=== PATIENT | male | born 1980 | race Caucasian/White ===

== ENCOUNTER 2017-11-15 17:30 | Emergency (ER) | payer BC, OTHER ==
[~2017-11-15] VITALS: Ht 180.3 cm; Wt 133.0 kg
[2017-11-15 17:33] VITALS: TEMP 36.8; Ht 180.3 cm; Wt 133.0 kg
--- NOTE | 2017-11-15 18:22 | EMERGENCY ROOM VISIT NOTE ---
History First contact with patient: 17:34 Chief Complaint: BACK INJURY Stated Complaint: NUMBNESS, ABDOMINAL AND DIARRHEA History of Present Illness The patient is a 37 year old male who presents to the Emergency Room with complaints of severe mid and lower back pain has been going on for approximately 2 weeks. The patient denies any acute injury. He woke up from bed with the pain. He saw a chiropractor twice this week where manipulation was performed. He is now complaining of numbness in the left side of his abdomen and down his left leg. He denies any weakness. He has tried muscle relaxants with minimal relief. He denies any history of back pain. The patient also complains of difficulty holding his stool. He has had black, liquid stool and also has noted some bright red blood in it. He is having difficulty making it to the restroom. He denies any significant abdominal pain. No nausea or vomiting. No sick contacts. No recent antibiotics. They do not have well water. Review of Systems 10 system review performed and negative unless noted in HPI or below Past Medical/Surgical History Hypertension Social History Smoking Status: Never Smoker Alcohol Use: occasionally Marital Status: Housing Status: lives with family Occupation Status: employed Current/Historical Medications Scheduled Cyclobenzaprine Hcl (Flexeril), 10 MG PO TID Lisinopril (Lisinopril), 10 MG PO DAILY Pantoprazole (Protonix), 1 TAB PO BID Sertraline (Zoloft), 100 MG PO DAILY Scheduled PRN Ginseng (Ginseng), 1 TAB PO DAILY PRN for TOBACCO CESSATION Oxycodone/Acetaminophen 5MG/325MG (Percocet 5MG/325MG), 1-2 TABS PO Q4 PRN for Pain Physical Exam Vital Signs Date Time Temp Pulse Resp B/P (MAP) Pulse Ox O2 Delivery O2 Flow Rate FiO2 11/15/17 23:45 83 15 157/93 95 11/15/17 22:29 76 16 155/89 97 Room Air 11/15/17 19:33 75 16 185/118 95 Room Air 11/15/17 17:33 36.8 88 20 179/114 98 Room Air Physical Exam GENERAL: 37-year-old male, mildly uncomfortable in appearance, SKIN: The skin was without rashes, erythema, edema, or bruising. HEAD: Normocephalic atraumatic. MOUTH: Mucous membranes moist. NECK: Supple without nuchal rigidity. Cervical spine is nontender. HEART: Regular rate and rhythm without murmurs gallops or rubs. LUNGS: Clear to auscultation bilaterally without wheezes, rales or rhonchi. No accessory muscle use. ABDOMEN: Positive bowel sounds x 4.Soft, mild tenderness to palpation in the right lower quadrant, without organomegaly. No guarding or rebound tenderness. MUSCULOSKELETAL: No muscle atrophy, erythema, or edema noted. No tenderness to palpation over the spinous processes throughout the spine. There is a muscle spasm in the right paraspinous muscle. Unable to perform straight leg test secondary to body habitus and pain. Decreased sensation noted on the left side of the abdomen near the umbilicus. Decreased sensation also on the left lateral thigh. Normal gait. Strength 5/5 throughout. NEURO: Patient was alert and oriented to person place and time. Sensation deficits as noted above Medical Decision & Procedures ER Provider Diagnostic Interpretation: CT abdomen and pelvis with IV contrast IMPRESSION: 1. There is underdistention versus minimal wall thickening of the left colon. Underdistention is favored. Correlate clinically for evidence of a mild colitis. 2. Hepatomegaly and hepatic steatosis. 3. The left kidney is located in the pelvis. 4. Although decompressed the bladder wall appears mildly thickened. Correlation with urinalysis will be required. 5. Additional findings as above. Electronically signed by: Maco Roa M.D. 11/15/2017 8:02 PM MRI thoracic and lumbar spine Patient Name: KASSANDRA CHRISTY Unit Number: [id number] Dictated: 11/15/172225 Transcribed: 11/15/172225 EV Printed Date/Time: [~ rep prt dt]/[~ rep prt tm] [~ rep ct labl] - [~ rep ct ivnm] [facility] [place] [address] Dictated: 11/15/172225 Transcribed: 11/15/172225 EV Printed Date/Time: [~ rep prt dt]/[~ rep prt tm] [~ rep ct labl] - [~ rep ct ivnm] IMPRESSION: 1. There is no disc herniation, central canal stenosis, or significant neural foraminal narrowing identified throughout the thoracic spine. 2. The thoracic spinal cord is normal in morphology and signal intensity. 3. Degenerative disc disease as above. Electronically signed by: Maco Roa M.D. 11/15/2017 11:04 PM Dictated Date/Time: 11/15/2017 10:26 PM The status of this report is Signed. Draft = Not yet reviewed or approved by Radiologist. Signed = Reviewed and approved by Radiologist. <AttendingPhy></AttendingPhy> <FamilyPhy>Shelton Palmer M.D.</FamilyPhy> < PrimaryPhy>Shelton Palmer M.D.</PrimaryPhy> <UnitNumber>[id number]</ UnitNumber> <VisitNumber>[id number]</VisitNumber> <PatientName>CHRISTYDEBOKASSANDRA</ PatientName> <DateOfBirth>1980</DateOfBirth> <Location>[facility]</Location> < ServiceDate>11/15/17</ServiceDate> <MNE>ESINDI</MNE> <OrderingPhy>Coreen Covington PA-C</OrderingPhy> <OrderingPhyMNE>f rep ord dr peterson</OrderingPhyMNE> < DictatingPhyMNE>f rep dict dr peterson</DictatingPhyMNE> <CCListMNE>f rep ct mnjaniya</ CCListMNE> <AdmittingPhyMNE>f pt admit dr peterson</AdmittingPhyMNE> <AttendingPhyMNE >f pt attend dr peterson</AttendingPhyMNE> <ConsultingPhyMNE>f pt consult dr peterson</ConsultingPhyMNE> <FamilyPhyMNE>f pt fam dr peterson</FamilyPhyMNE> <OtherPhyMNE>f pt other dr peterson</OtherPhyMNE> < PrimaryPhyMNE>f pt prim care dr peterson</PrimaryPhyMNE> <ReferringPhyMNE>f pt referring dr peterson</ReferringPhyMNE> IMPRESSION: 1. There are bilateral pars defects at L5 with grade 1 anterolisthesis, moderate disc space narrowing, and endplate edema at L5-S1. 2. There is a small disc herniation at L3-L4 with a superiorly extruded fragment. There is no significant acquired compromise of the central canal at this level. 3. Mild spondylotic change at additional levels as above. See discussion for detailed level by level analysis. Electronically signed by: Maco Roa M.D. 11/15/2017 11:05 PM Dictated Date/Time: 11/15/2017 10:34 PM Laboratory Results 11/15/17 18:25 Red Blood Count 4.73, Mean Corpuscular Volume 92.4, Mean Corpuscular Hemoglobin 32.8, Mean Corpuscular Hemoglobin Concent 35.5, Mean Platelet Volume 10.5, Neutrophils (%) (Auto) 69.2, Lymphocytes (%) (Auto) 20.7, Monocytes (%) (Auto) 8.4, Eosinophils (%) (Auto) 1.0, Basophils (%) (Auto) 0.4, Neutrophils # (Auto) 5.45, Lymphocytes # (Auto) 1.63, Monocytes # (Auto) 0.66, Eosinophils # (Auto) 0.08, Basophils # (Auto) 0.03 11/15/17 18:25 Test 11/15/17 18:25 White Blood Count 7.87 K/uL (4.8-10.8) Red Blood Count 4.73 M/uL (4.7-6.1) Hemoglobin 15.5 g/dL (14.0-18.0) Hematocrit 43.7 % (42-52) Mean Corpuscular Volume 92.4 fL (80-100) Mean Corpuscular Hemoglobin 32.8 pg (25-34) Mean Corpuscular Hemoglobin Concent 35.5 g/dl (32-36) Platelet Count 198 K/uL (130-400) Mean Platelet Volume 10.5 fL (7.4-10.4) Neutrophils (%) (Auto) 69.2 % Lymphocytes (%) (Auto) 20.7 % Monocytes (%) (Auto) 8.4 % Eosinophils (%) (Auto) 1.0 % Basophils (%) (Auto) 0.4 % Neutrophils # (Auto) 5.45 K/uL (1.4-6.5) Lymphocytes # (Auto) 1.63 K/uL (1.2-3.4) Monocytes # (Auto) 0.66 K/uL (0.11-0.59) Eosinophils # (Auto) 0.08 K/uL (0-0.5) Basophils # (Auto) 0.03 K/uL (0-0.2) RDW Standard Deviation 42.1 fL (36.4-46.3) RDW Coefficient of Variation 12.5 % (11.5-14.5) Immature Granulocyte % (Auto) 0.3 % Immature Granulocyte # (Auto) 0.02 K/uL (0.00-0.02) Prothrombin Time 10.7 SECONDS (9.0-12.0) Prothromb Time International Ratio 1.0 (0.9-1.1) Anion Gap 14.0 mmol/L (3-11) Est Creatinine Clear Calc Drug Dose 167.9 ml/min Estimated GFR () 129.4 Estimated GFR (Non- 111.6 BUN/Creatinine Ratio 12.6 (10-20) Calcium Level 9.1 mg/dl (8.5-10.1) Total Bilirubin 0.5 mg/dl (0.2-1) Aspartate Amino Transf (AST/SGOT) 62 U/L (15-37) Alanine Aminotransferase (ALT/SGPT) 84 U/L (12-78) Alkaline Phosphatase 88 U/L (45-117) Total Protein 8.2 gm/dl (6.4-8.2) Albumin 3.7 gm/dl (3.4-5.0) Globulin 4.5 gm/dl (2.5-4.0) Albumin/Globulin Ratio 0.8 (0.9-2) Date/Time Source Procedure Growth Status 11/15/17 18:29 Stool C.difficile Toxin B Gene (PCR) - Final No C. difficile toxin B gene detected Complete Medications Administered Medications (Trade) Dose Ordered Sig/Dann Route Start Time Stop Time Status Last Admin Dose Admin Sodium Chloride 1,000 ml @ 999 mls/hr Q1H1M ONCE IV 11/15/17 21:00 11/15/17 22:00 DC 11/15/17 22:40 999 MLS/HR Dexamethasone Sodium Phosphate (Decadron Inj) 10 mg NOW STAT IV 11/15/17 23:09 11/15/17 23:10 DC 11/15/17 23:24 10 MG Pantoprazole Sodium 40 mg/ Syringe 10 ml @ 5 mls/min NOW ONCE IV 11/15/17 23:15 11/15/17 23:16 DC 11/15/17 23:37 5 MLS/MIN Cyclobenzaprine HCl (FLEXERIL 10MG Home Pack) 1 homepack UD ONCE PO 11/15/17 23:15 11/15/17 23:16 DC 11/15/17 23:37 1 HOMEPACK Oxycodone/ Acetaminophen (Percocet 5/ 325MG Home Pack) 1 homepack UD ONCE PO 11/15/17 23:15 11/15/17 23:16 DC 11/15/17 23:37 1 HOMEPACK ED Course Patient was seen and examined Vital signs including blood pressure were reviewed medications list was verified with patient Labs were obtained, and a saline lock was established The patient declined pain medication Imaging was performed and reviewed The findings were discussed with the patient. He was hydrated with 1 L of normal saline. He was given 1 dose of Decadron 10 mg IV. He was also given pantoprazole 40 mg IV. We thoroughly discussed his results. He voiced understanding, and was comfortable being discharged home. I reviewed discharge instructions the patient. They voiced understanding and had no further questions. Medical Decision Differential diagnosis: Cauda equina syndrome, Spine fracture, ligamentous injury, subluxation, spondylolisthesis, spondylosis, herniated disc, contusion, muscle spasm, GI bleed, infectious gastrointestinal illness, inflammatory bowel disease, This patient is a 37-year-old male that presents to the emergency department with back pain, numbness and difficulty holding his stool. He has also had dark stools. On exam, he had mild tenderness in his right lower abdomen. No weakness noted. He did have sensation deficits on the left abdomen and left lateral thigh. Given this and the fact that he had chiropractic manipulation, I was concerned for a back injury. An MRI was performed. This showed degenerative changes and mild narrowing. No acute fractures or subluxation. The patient's labs reveal minor elevation of his LFTs, which is not new. The patient has had this in the past. Electrolytes were slightly off likely due to diarrhea. He was hydrated in the emergency department. A CT of the abdomen and pelvis was performed. There was questionable mild thickening of the colon versus underdistention. Otherwise, it was fairly unremarkable. The patient did test positive on his guaiac. This is possibly due to NSAID use with his back pain. The patient will be treated with a PPI BID and have close follow-up with GI. His H&H is stable. I believe he is stable to be discharged home. He was counseled to avoid NSAIDs and acidic/spicy foods. He was given a short course of muscle relaxants and narcotics for pain. He will also follow-up with orthopedics closely. The patient was comfortable with this plan. He also agrees to return to the emergency department with any new or worsening symptoms. Blood Pressure Screening Patient's blood pressure: Elevated blood pressure Blood pressure disposition: Referred to PCP Impression Primary Impression: Back pain Additional Impression: Diarrhea Departure Information Dispostion Home / Self-Care Condition FAIR Prescriptions Cyclobenzaprine Hcl (FLEXERIL) 10 Mg Tab 10 MG PO TID for Muscle Spasms, #20 TAB Prov: Coreen Covington PA-C 11/15/17 Oxycodone/Acetaminophen 5MG/325MG (PERCOCET 5MG/325MG) Tab 1-2 TABS PO Q4 Y for Pain, #15 TAB For Initial Treatment Prov: Coreen Covington PA-C 11/15/17 Pantoprazole (PROTONIX) 40 Mg Tab 1 TAB PO BID for 14 Days, #28 TAB 3 Refills Prov: Coreen Covington PA-C 11/15/17 Referrals Shelton Palmer M.D. (PCP) Moisés tOto M.D. Edward Doran, DO Patient Instructions ED Gastritis, Low Back Pain Self Care, [facility] Additional Instructions You have been evaluated in the emergency department for loose stool and back pain. It does appear that you have significant degenerative changes in your thoracic and lumbar spine. Percocet Take 1-2 pills every four hours for pain. Avoid alcohol, operating machinery or dangerous equipment, working on ladders or roofs, DRIVING, or situations where being under the influence may be dangerous. It is recommended to use an [id number] stool softener such as Colace, 100mg twice daily while taking this medication to avoid constipation. Flexeril every 8 hours as needed for muscle spasm/pain. Please also do not drink alcohol or drive while taking this medication. The strenuous activity until you're back is feeling better Please call the spine surgeon on Friday for a follow-up appointment In regards to your loose stool, there was blood noted in your stool. This is possibly due to a gastritis or irritation of the gastric lining. For this, please take pantoprazole 1 tablet twice daily PLEASE AVOID PAIN MEDICATION IN THE NSAID CLASS SUCH IBUPROFEN, NAPROXEN, ALEVE, MOTRIN AND ADVIL Please call the GI doctor on Friday morning for a follow-up appointment Avoid spicy foods and acidic foods such as alcohol, caffeine, citrus and tomato Your blood pressure was also noted to be high today. Please have this rechecked. Please follow-up with her primary care physician as soon as possible. Please do not hesitate to return to the emergency department with any new, worsening or concerning symptoms; especially, severe pain, weakness in the extremities, fever, abdominal pain, numbness or tingling in your groin. Problem Qualifiers
[2017-11-15] MEDS ORDERED: GINS1CAP PO (18:26)
[2017-11-15] MEDS ORDERED: SERT-234 PO (18:26)
[2017-11-15] MEDS ORDERED: LISI-461 PO (18:26)
[2017-11-15 18:44] LABS: BASO % 0.4 %; BASO ABS # 0.03 K/uL (0-0.2); EOS ABS # 0.08 K/uL (0-0.5); HEMATOCRIT 43.7 % (42-52); HEMOGLOBIN 15.5 g/dL (14.0-18.0); IG# 0.02 K/uL (0.00-0.02); LYMPH % 20.7 %; LYMPH ABS # 1.63 K/uL (1.2-3.4); MEAN CELL VOLUME 92.4 fL (80-100); MEAN CORPUSCULAR HEMOGLOBIN 32.8 pg (25-34); MEAN CORPUSCULAR HGB CONC 35.5 g/dl (32-36); MEAN PLATELET VOLUME 10.5 fL (7.4-10.4); MONO % 8.4 %; MONO ABS # 0.66 K/uL (0.11-0.59); NEUT % 69.2 %; NEUT ABS # 5.45 K/uL (1.4-6.5); PLATELET COUNT 198 K/uL (130-400); RED CELL DISTRIBUTION WIDTH CV 12.5 % (11.5-14.5); RED CELL DISTRIBUTION WIDTH SD 42.1 fL (36.4-46.3); WHITE BLOOD COUNT 7.87 K/uL (4.8-10.8)
[2017-11-15] MEDS ORDERED: OPTIRAY 320 IV PRN (18:45)
[2017-11-15 19:02] LABS: ALBUMIN 3.7 gm/dl (3.4-5.0); CALCIUM 9.1 mg/dl (8.5-10.1); CREATININE 0.83 mg/dl (0.60-1.40); POTASSIUM 3.4 mmol/L (3.5-5.1)
[2017-11-15 19:05] LABS: TOTAL PROTEIN 8.2 gm/dl (6.4-8.2)
--- NOTE | 2017-11-15 20:03 | DIAGNOSTIC IMAGING REPORT ---
CT SCAN OF THE ABDOMEN AND PELVIS WITH IV CONTRAST CLINICAL HISTORY: Generalized abdominal pain. Melanotic stool. COMPARISON STUDY: No priors. TECHNIQUE: Following the IV administration of 94 cc of Optiray 320, CT scan of the abdomen and pelvis is performed from the lung bases to the proximal femora. Images are reviewed in the axial, sagittal, and coronal planes. IV contrast was administered without complication. A dose lowering technique was utilized adhering to the principles of ALARA. CT DOSE: 1456.61 mGy.cm FINDINGS: Lung bases: The heart is normal in size and without pericardial effusion. The lung bases are clear. Liver: The contrast-enhanced liver is mildly enlarged measuring over 18 cm in length. The liver demonstrates diffusely diminished attenuation consistent with hepatic steatosis. There is no intrahepatic biliary ductal dilatation. The hepatic veins and portal veins are patent. Gallbladder: Contracted. Spleen: Normal in size and attenuation. Pancreas: Unremarkable. Adrenal glands: Unremarkable. Kidneys: The contrast enhanced kidneys are normal in size and without hydronephrosis. The left kidney is located in the pelvis. The kidneys enhance symmetrically. A retroverted left renal vein is incidentally noted. Abdominal vasculature: The abdominal aorta is normal in course and caliber. There is a high bifurcation of the abdominal aorta. Bowel: There is minimal wall thickening versus underdistention of the left colon. No bowel obstruction is seen. The appendix is well-visualized and normal. Peritoneum: There is no intraperitoneal free air or abdominal ascites. Lymphadenopathy: None. Pelvic viscera: Although decompressed, the bladder wall appears thickened. The prostate and seminal vesicles are normal as imaged. Skeletal structures: No lytic or blastic lesions are seen. There are bilateral pars defects at L5. Advanced disc space narrowing and 10 mm anterolisthesis is seen at L5-S1. IMPRESSION: 1. There is underdistention versus minimal wall thickening of the left colon. Underdistention is favored. Correlate clinically for evidence of a mild colitis. 2. Hepatomegaly and hepatic steatosis. 3. The left kidney is located in the pelvis. 4. Although decompressed the bladder wall appears mildly thickened. Correlation with urinalysis will be required. 5. Additional findings as above. Electronically signed by: Maco Roa M.D. 11/15/2017 8:02 PM Dictated Date/Time: 11/15/2017 7:55 PM
[2017-11-15] MEDS ORDERED: SODIUM CHLORIDE 0.9% 1000ML 1,000 ML IV ONE (21:00)
--- NOTE | 2017-11-15 23:05 | DIAGNOSTIC IMAGING REPORT ---
MRI OF THE THORACIC SPINE COMBO CLINICAL HISTORY: Mid back pain. Left lower extremity numbness. COMPARISON STUDY: No priors. TECHNIQUE: MRI of the thoracic spine is performed utilizing various T1 and T2-weighted sequences in the axial and sagittal planes. Contrast-enhanced sequences were acquired following the IV administration of 13 cc of Gadavist. The Examination is degraded by motion artifact. FINDINGS: Vertebral body height and alignment are maintained throughout the thoracic spine. The spinous processes appear intact. Mild degenerative endplate edema is seen at T9-T10. Chronic degenerative endplate change is seen at T10-T11. Degenerative disc desiccation is seen throughout the thoracic spine. Moderate to severe loss of height is seen from T7-T8 through T9 -T10. There is no large disc herniation. Tiny posterior disc bulges are seen at T7-T8, T8-T9, and T9-T10. There is no significant acquired compromise the central canal. The thoracic spinal cord is normal in morphology and signal intensity. No abnormal enhancement is seen on the postcontrast images. The conus medullaris terminates at the level of L1. No significant neural foraminal stenosis is seen throughout the thoracic spine. No enhancing mass lesion is suggested on the postcontrast images. The paraspinous soft tissues are within normal limits. The lung parenchyma is grossly unremarkable but not well evaluated by MRI. IMPRESSION: 1. There is no disc herniation, central canal stenosis, or significant neural foraminal narrowing identified throughout the thoracic spine. 2. The thoracic spinal cord is normal in morphology and signal intensity. 3. Degenerative disc disease as above. Electronically signed by: Maco Roa M.D. 11/15/2017 11:04 PM Dictated Date/Time: 11/15/2017 10:26 PM
--- NOTE | 2017-11-15 23:07 | DIAGNOSTIC IMAGING REPORT ---
MRI OF THE LUMBAR SPINE COMBO CLINICAL HISTORY: Low back pain. Left lower extremity numbness of several weeks' duration. COMPARISON STUDY: Abdominal CT dated 11/15/2017. TECHNIQUE: MRI of the lumbar spine is performed utilizing various T1 and T2-weighted sequences in the axial and sagittal planes. Contrast-enhanced sequences were acquired following the IV administration of 13 cc of Gadavist. The Examination is degraded by motion artifact. FINDINGS: Lumbar spine: Vertebral body height is maintained throughout the lumbar spine. There are bilateral pars defects at L5 with 8 mm of anterolisthesis at L5-S1. Alignment is otherwise maintained. There is chronic degenerative endplate change and endplate edema at L5-S1. Normal marrow signal intensity is preserved throughout the remaining bony structures. No destructive osseous lesion is identified. The transverse and spinous processes appear intact. Intervertebral discs: Mild degenerative disc desiccation is seen throughout the lumbar spine. There is moderate loss of height at L5-S1. Minimal loss of height is seen at L4-L5. Spinal cord: The visualized spinal cord is normal in morphology and signal intensity. The conus medullaris terminates at the L1-L2 interspace. No abnormal enhancement is seen on the postcontrast images. The nerve roots of the cauda equina are normal in morphology. L1-L2: Unremarkable. L2-L3: Unremarkable. L3-L4: There is a small disc herniation with a superiorly extruded fragment. This is best seen on sagittal STIR image #8. The fragment measures 1.2 cm. There is no significant acquired compromise of the central canal. The neural foramina are patent. L4-L5: There is a small posterior disc bulge. The central canal and neural foramina are patent. Facet arthropathy is of no consequence. There is mild bilateral subarticular stenosis. L5-S1: There is posterior disc bulge. This causes bilateral subarticular stenosis. This likely impinges on the exiting left L5 nerve root. There is significant facet arthropathy, which causes mild bilateral neural foraminal stenosis. Sacrum: The visualized sacrum is normal in morphology and signal intensity. Soft tissues: The paraspinous soft tissues are within normal limits. The partially imaged retroperitoneal structures are grossly unremarkable but incompletely assessed. IMPRESSION: 1. There are bilateral pars defects at L5 with grade 1 anterolisthesis, moderate disc space narrowing, and endplate edema at L5-S1. 2. There is a small disc herniation at L3-L4 with a superiorly extruded fragment. There is no significant acquired compromise of the central canal at this level. 3. Mild spondylotic change at additional levels as above. See discussion for detailed level by level analysis. Electronically signed by: Maco Roa M.D. 11/15/2017 11:05 PM Dictated Date/Time: 11/15/2017 10:34 PM
[2017-11-15] MEDS ORDERED: DEXAMETHASONE SOD INJ 4 MG/ML VIAL IV STA (23:09)
[2017-11-15] MEDS ORDERED: PERCOCET HOME PACK PO ONE (23:15)
[2017-11-15] MEDS ORDERED: PANTOprazole INJ 40 MG in SYRINGE 0 ML IV ONE (23:15)
[2017-11-15] MEDS ORDERED: FLEXERIL HOME PACK 10 MG VIAL PO ONE (23:15)
[2017-11-15] MEDS ORDERED: CYCL10TA6 PO (23:25)
[2017-11-15] MEDS ORDERED: PANT1TAB3 PO (23:25)
[2017-11-15] MEDS ORDERED: OXYC-57 PO (23:25)
[2017-11-15 23:45] VITALS: BP 157/93; PULSE 83; O2SAT 95
== END 2017-11-15 23:46 | disposition home or self-care (01) ==
LOC: C.EDB 17:31 → C.EDC 23:46
DX: M54.9 Dorsalgia, unspecified (principal); R10.84 Generalized abdominal pain; R19.7 Diarrhea, unspecified; R16.0 Hepatomegaly, not elsewhere classified; K76.0 Fatty (change of) liver, not elsewhere classified

== ENCOUNTER 2023-11-17 07:26 | Inpatient (IN) ==
--- NOTE | 2023-11-17 07:40 | Emergency Department Note ---
Impression & Plan Acute hyponatremia ADMIT ED Provider Note HPI: History obtained from patient. 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 Patient states that he has had a cough now for 2 months. Patient states that when he coughs or when he laughs he has events where he passes out and then quickly becomes alert again when someone talks to him. Patient estimates this has happened about 15 times in the past 2 days. On arrival here to the ED the patient is alert and oriented, he does have an abrasion over the mid aspect of his forehead, he is ambulatory on arrival and otherwise appears to be in no acute distress. Patient does not have any focal deficits on arrival. ROS: - Per HPI Differential Diagnosis: Acute exacerbation of underlying cataplexy, seizure disorder, arrhythmia to include SVT, atrial fibrillation with RVR, ventricular tachycardia, high degree heart block, vasovagal event, critical electrolyte abnormalities, amongst other potential pathologies. *Outpatient medications and allergy history reviewed. PE: General: Alert HEENT: Normocephalic, trachea midline, abrasion over the mid forehead without any active bleeding Eyes: Extraocular eye movement is intact, no scleral erythema Pulmonary: Clear to auscultation bilaterally, no wheezing Cardio: Regular rate and rhythm GI: Abdomen is soft to palpation : No suprapubic tenderness MSK: No evidence of trauma or malformation of the extremities, no edema Skin: No evidence of rash Neuro: Alert, no focal deficits, equal bilateral special assets officer strength, ambulates all extremities spontaneously, patient is ambulatory on arrival Psychiatric: Cooperative INDEPENDENT INTERPRETATIONS: quality assurance monitor chassis: (As interpreted by myself): - An order was placed for continuous cardiac monitoring - Patient was noted to be in sinus rhythm with a rate of 85 EKG: (As interpreted by myself): Rate: 78 Rhythm: Normal sinus rhythm Intervals: Within normal limits ST changes: No ST elevation Time: 0746 Chest x-ray: (As interpreted by myself): -No evidence of rib fracture or pneumothorax Interventions provided in ED: -IV fluid bolus, IV magnesium Medical Decision Making: IV was established and lab work obtained, patient was placed on cardiac cath lab radiology technologist. Lab work shows no leukocytosis, hemoglobin is stable at 13.3. Platelet count is normal. CMP shows hyponatremia at 120, hypochloremia at 86, potassium is normal. Magnesium slightly low at 1.5. Troponin is negative x 1. EKG per my interpretation shows normal sinus rhythm. CT imaging of the head does not show any evidence of acute intracranial process, right-sided mastoid effusion is noted. Patient does not have any mastoid tenderness. There is no leukocytosis or fever, low suspicion for acute mastoiditis. Patient was given a 500 cc bolus of normal saline here in the ED. given his history of cataplexy, his events sound more consistent with cataplexy. He states at times when they occur he does not actually completely lose consciousness. I have low suspicion that these are seizures. Patient states the events occur with a stimulus such as coughing or laughing. I have low suspicion for his hyponatremia as a source of these events currently and therefore we will defer hypertonic saline at this time. Patient is alert and oriented on my reassessment and is resting comfortably in bed. I discussed the patient's presentation with the on-call midlevel provider for the [facility] hospitalist service, the patient was placed for admission to the service of Dr. Glez. Consultants/Discussions held with other healthcare providers: -Hospitalist service, Dr. Glez Disposition discussion held by myself with: -Patient Diagnosis: 1. Hyponatremia, acute 2. Cataplexy, acute on chronic 3. Hypochloremia, acute 4. Hypomagnesemia, acute Disposition: Admission Gautam Adrian DO Emergency Medicine Past Med/Surg History Medical History (Updated 11/17/23 @ 09:14 by Gautam Adrian DO) No significant past medical history Family History Denies family history of Myocardial infarction Social History Smoking Status: Never smoker Tobacco Type: Smokeless Tobacco (Dip or Chew) Feels Safe at Home: Yes Allergies Allergies Allergy/AdvReac Type Severity Reaction Status Date / Time No Known Allergies Allergy Unverified 07/21/19 22:56 Home Meds Home Medications Medication Instructions Recorded Confirmed lisinopril 40 mg tablet 40 mg PO DAILY 07/21/19 07/21/19 Results & Data (ED) Vital Signs Vital Signs - 24 hr 11/17/23 07:30 11/17/23 07:55 11/17/23 07:55 Temperature 37.0 C 36.7 C Temperature Source Temporal Artery Scan Oral Pulse Rate 84 Pulse Rate [Right Finger] 81 Pulse Rhythm [Right Finger] Regular Pulse Strength [Right Finger] Normal Respiratory Rate 16 22 Respiratory Effort / Characteristics Non-Labored Non-Labored Spontaneous Respiratory Depth Normal Normal Blood Pressure 134/85 Blood Pressure [Right Arm] 121/73 Blood Pressure Mean 101 Blood Pressure Mean [Right Arm] 89 Blood Pressure Position [Right Arm] Semi-fowlers Pulse Oximetry 97 99 98 Oxygen Delivery Method Room Air Room Air Room Air Sepsis Recent Fever Within 48 Hours No Sepsis New/Unexplained Change in Mental Status N/A Sepsis Action Taken by Nursing No Action Required 11/17/23 08:12 Temperature Temperature Source Pulse Rate 84 Pulse Rate [Right Finger] Pulse Rhythm [Right Finger] Pulse Strength [Right Finger] Respiratory Rate Respiratory Effort / Characteristics Respiratory Depth Blood Pressure Blood Pressure [Right Arm] Blood Pressure Mean Blood Pressure Mean [Right Arm] Blood Pressure Position [Right Arm] Pulse Oximetry Oxygen Delivery Method Sepsis Recent Fever Within 48 Hours Sepsis New/Unexplained Change in Mental Status Sepsis Action Taken by Nursing Laboratory Data 11/17/23 07:51 11/17/23 07:51 Lab Results 11/17/23 11/17/23 Range/Units 07:51 07:57 WBC 8.14 (4.8-10.8) K/ul RBC 4.15 L (4.70-6.10) M/uL Hgb 13.3 L (14.0-18.0) g/dl Hct 38.8 L (42.0-52.0) % MCV 93.5 (80.0-100.0) fL MCH 32.0 (25.0-34.0) pg MCHC 34.3 (32.0-36.0) g/dL RDW Std Deviation 41.2 (36.4-46.3) fL RDW Coeff of Nirmal 11.9 (11.5-14.5) % Plt Count 184 (130-400) K/uL MPV 9.7 (9.4-12.4) fL Immature Gran % (Auto) 1.1 % Neut % (Auto) 64.5 % Lymph % (Auto) 25.1 % Wolfe % (Auto) 8.1 % Eos % (Auto) 1.0 % Baso % (Auto) 0.2 % Neut # (Auto) 5.25 (1.40-6.50) K/uL Lymph # (Auto) 2.04 (1.20-3.40) K/uL Wolfe # (Auto) 0.66 H (0.11-0.59) K/uL Eos # (Auto) 0.08 (0.00-0.50) K/uL Baso # (Auto) 0.02 (0.00-0.20) K/uL Immature Gran # (Auto) 0.09 (0.01-0.20) K/uL Sodium 120 L (136-145) mmol/L Potassium 3.6 (3.5-5.1) mmol/L Chloride 86 L (98-107) mmol/L Carbon Dioxide 25 (21-32) mmol/L Anion Gap 9 (3-11) BUN 13 (6-23) mg/dl Creatinine 0.98 (0.6-1.4) mg/dl Est Cr Clr Drug Dosing 146.0 ml/min Est GFR ( Amer) 108.2 ml/min Est GFR (Non-Af Amer) 93.4 ml/min BUN/Creatinine Ratio 13.3 (10-20) Glucose 154 H (70-99(Fasting)) mg/dl Lactate 1.6 (0.4-2.0) mmol/L Calcium 8.8 (8.6-10.3) mg/dl Magnesium 1.5 L (1.7-2.4) mg/dl Total Bilirubin 0.5 (0.2-1.0) mg/dl AST 42 H (13-39) U/L ALT 30 (7-52) U/L Alkaline Phosphatase 60 (34-104) U/L Troponin I High Sens 11.6 (0-20) pg/ml Total Protein 7.6 (6.0-8.3) gm/dl Albumin 4.0 (3.4-5.0) gm/dl Globulin 3.6 (2.5-4.0) gm/dl Albumin/Globulin Ratio 1.1 (0.9-2) Administered Medications Discontinued Medications Sodium Chloride (Nss) 1,000 mls @ 999 mls/hr IV .Q1H1M VELASQUEZ Stop: 11/17/23 08:45 Last Infusion: 11/17/23 09:00 Dose: Infused Documented By: Admin: 11/17/23 07:55 Dose: 999 mls/hr Documented By: JOCELYN Imaging Data Radiologist's Impression: Head CT 11/17/23 07:39 CT head/brain wo con CLINICAL HISTORY: 43 years-old Male with syncope and collapse, forehead injury. TECHNIQUE: Multiple axial CT images of the head were obtained without contrast. A dose lowering technique was utilized adhering to the principles of ALARA. CT DOSE: 625.8 mGy.cm COMPARISON: None. FINDINGS: No acute intracranial hemorrhage, midline shift, intracranial mass, hydrocephalus, territorial ischemia or abnormal extra-axial collection. The calvarium is intact. Large right mastoid effusion. The left mastoid air cells are clear. There is mild mucosal thickening of the ethmoid air cells and right maxillary sinus. IMPRESSION: 1. No acute intracranial abnormality or calvarial fracture. 2. Large right mastoid effusion. ACT 112: Negative or not required by law. The above report was generated using voice recognition software. It may contain grammatical, syntax or spelling errors. Electronically signed by: Gurpreet Monroe M.D. 11/17/2023 8:13 AM Discharge Plan Visit Data Chief Complaint: Seizure Stated Complaint: SEIZURES, COUGH ED Provider: Gautam Adrian Discharge Problem: Acute hyponatremia Forms Stand Alone Forms: M[employer] Prescriptions Prescriptions: No Action lisinopril 40 mg tablet 40 mg PO DAILY Referrals Referrals: Shelton Palmer MD [Primary Care Provider] -
[2023-11-17] MEDS ORDERED: SODIUM CHLORIDE 0.9% 1,000 ML IV SCH (07:45)
--- OUTSIDE RECORDS SUMMARY | 2023-11-17 07:45 | External Medical Summary | Summary of Care ---
Author Name Unknown Organization [facility] Address [address] [place] [address] Phone [phone] Care Team Providers Care Job Training Supervisor Name Role Phone Ese Dixon MD Primary Care Provid er Encounter Details Date Type Department Care Team Description 08/04/2023 Telephone [facility] [address] [place] [address] Ese Dixon MD [address] [place] [address] Allergies No known active allergiesdocumented as of this encounter (statuses as of 08/04/2023) Medications Medication Sig Dispensed Refills Start Date End Date Status Ozempic (0.25 or 0.5 MG/DOSE) 2 MG/1.5ML Solution Pen-injector (Semaglutide(0.25 or 0.5MG/DOS))Indicat ions:Syndrome X, metabolic,Morbid obesity due to excess calories (HCC),Body mass index (BMI) of 40.0 to 44.9 in adult (HCC),Hepatic steatosis,Abnormal results of liver function studies INJECT 0.25MG UNDER THE SKIN ONCE A WEEK for 4 weeks, then increase to 0.5 mg weekly. 1.5 mL 5 02/03/2023 Active Additional Information Patient not taking.Reported on 08/04/2023 Chlorthalidone 25 MG Oral Tablet (Hygroton)Indicati ons:HTN, goal below 140/90 Take 1 Tablet by mouth in the morning. In the morning.. 90 Tablet 3 02/03/2023 Active Lisinopril 40 MG Oral TabletIndications: HTN, goal below 140/90 Take 1 Tablet by mouth in the morning. 90 Tablet 3 02/03/2023 Active Amoxicillin 875 MG Oral TabletIndications: Acute frontal sinusitis, recurrence not specified Take 1 Tablet by mouth in the morning and 1 Tablet before bedtime. Do all this for 10 days. 20 Tablet 0 08/04/2023 08/14/2023 Active documented as of this encounter (statuses as of 08/04/2023) Active Problems Problem Noted Date Body mass index (BMI) of 45.0 to 49.9 in adult 03/03/2023 Overview: Per Obesity protocol - Lymphedema of both lower extremities 07/2022 Cataplexy 08/05/2022 Hepatic steatosis 06/03/2022 Syndrome X, metabolic 06/03/2022 Alcohol consumption of more than four dr inks per day 06/03/2022 HTN, goal below 140/90 10/06/2017 Morbid obesity due to excess calories Overview: Per Obesity protocol #1 Elevated blood pressure, situational Chews tobacco 12/14/2012 Abnormal results of liver function studi es Allergic rhinitis documented as of this encounter (statuses as of 08/04/2023) Resolved Problems Problem Noted Date Resolved Date Body mass index (BMI) of 40.0 to 44.9 in adult 1 03/05/2023 Overview: Per Obesity protocol #1 Obesity, morbid (more than 1 00 lbs over ideal weight or BMI > 40) 08/08/2014 09/05/2016 Overview: BMI= 41.31 08/08/14 Sebaceous cyst 08/08/2014 09/05/2016 Overview: RIGHT GROIN Obesity, Class II, BMI 35-39.9, isolated (see ac tual BMI) 12/14/2012 09/05/2016 Overview: bmi= 38.04 12/14/12 Routine medical exam 12/14/2012 08/12/2016 Obesity, Class II, BMI 35-39.9, isolated (see ac tual BMI) 12/03/2011 09/05/2016 Overview: bmi= 38.91 12/03/11 Behavior-irritability 12/03/2011 09/05/2016 CATAPLEXY ( ORGANIC) 02/06/2010 09/05/2016 Convulsions 12/15/2009 08/09/2010 Obesity, BMI not known 12/15/2009 6 Routine medical exam 07/26/2009 12/14/2012 OBESITY, BMI= 38.33 07/26/09 07/26/200908/27 TOBACCO USE DISORDER- ORAL 07/26/200912/14 documented as of this encounter (statuses as of 08/04/2023) Immunizations Name Administration Dates Next Due PPD 10/02/2016 TD, Preservative Free 12/22/2020 TDAP (age 11 and older)(Adacel) 10/27/2003 documented as of this encounter Social History Tobacco Use Types Packs/Day Years Used Date Smoking Tobacco: Never Smokeless Tobacco: Current Chew Comments:began at age 13 now 1 can per day last tried 2003 Alcohol Use Standard Drinks/Week Comments Yes 0 (1 standard drink = 0.6 oz pur e alcohol) 1 case a week Sex Assigned at Date Recorded Male 07/22/2019 11:35 AM EDT Job Start Date Occupation Industry Not on file Not on file Not on file documented as of this encounter Plan of Treatment Health Maintenance Due Date Last Done Comments Hepatitis B (1 of 3 - 3-dose series) 1980 COVID-19 Vaccine (#1) 1980 GFR 01/11/2023 01/11/2022, /03/2021, 11/23/2019, Additional history exists Depression Screening 06/03/2023 06/03/2022 Influenza Vaccine (FLU shot) (#1) 2023 Diabetes Screening 01/11/2025 01/11/2022, 0 12/22/2020, 11/23/2019, Additional history exists Albumin/Creatinine Ratio 08/05/2025 08/05/2022 Lipid Panel 06/17/2027 06/17/2022, 09/26, 07/07/2015, Additional history exists DTaP,Tdap,and Td Vaccines (3 - Td or Tdap) 12/22/2030 12/22/2020, 10/27/2003 GARDASIL-HPV IMMUNIZATION SERIES Aged Out No longer eligible based on patient's age to complete this topic MENINGOCOCCAL (MENACTRA/MENVEO) Aged Out No longer eligible based on patient's age to complete this topic Pneumococcal Vaccine: Pediatrics (0 to 5 Years) and At-Risk Patients (6 to 64 Years) Aged Out No longer eligible based on patient's age to complete this topic documented as of this encounter Medical Devices Not on filedocumented as of this encounter Care Teams Job Training Supervisor Relationship Specialty Start Date End Date Ese Dixon MD [address] [place] [address] PCP - General Family Medicine 08/05/22 documented as of this encounter
--- OUTSIDE RECORDS SUMMARY | 2023-11-17 07:45 | External Medical Summary | Summary of Care ---
Author Name Unknown Organization [facility] Address [address] [place] [address] Phone [phone] Care Team Providers Care Feather Cutting Machine Feeder Name Role Phone Ese Dixon MD Primary Care Provid er Reason for Visit * Reason Onset Date Comments Med Request 10/02/2023 Encounter Details Date Type Department Care Team (Late st Contact Info) Description 10/02/2023 Telephone Access Center, [place] [address] [facility] *DO NOT REMOVE THIS DEPARTMENT* [place] [address] Services, Scheduling [address] [place] [address] Med Request Allergies No known active allergiesdocumented as of this encounter (statuses as of 10/03/2023) Medications Medication Sig Dispensed Refills Start Date End Date Status Ozempic (0.25 or 0.5 MG/DOSE) 2 MG/1.5ML Solution Pen-injector (Semaglutide(0.25 or 0.5MG/DOS))Indicati ons:Syndrome X, metabolic,Morbid obesity due to excess calories (HCC),Body mass index (BMI) of 40.0 to 44.9 in adult (HCC),Hepatic steatosis,Abnormal results of liver function studies INJECT 0.25MG UNDER THE SKIN ONCE A WEEK for 4 weeks, then increase to 0.5 mg weekly. 1.5 mL 5 02/03/2023 Active Additional Information Patient not taking.Reported on 08/04/2023 Chlorthalidone 25 MG Oral Tablet (Hygroton)Indicatio ns:HTN, goal below 140/90 Take 1 Tablet by mouth in the morning. In the morning.. 90 Tablet 3 02/03/2023 Active Lisinopril 40 MG Oral TabletIndications:H TN, goal below 140/90 Take 1 Tablet by mouth in the morning. 90 Tablet 3 02/03/2023 Active Sertraline HCl 25 MG Oral Tablet (Zoloft)Indications :Anxiety,Moderate episode of recurrent major depressive disorder (HCC) Take 1 Tablet by mouth in the morning. 30 Tablet 11 08/04/2023 Active buPROPion HCl ER (XL) 150 MG Oral Tablet Extended Release 24 Hour (Wellbutrin XL)Indications:Hepa tic steatosis,Syndrome X, metabolic,Alcohol consumption of more than four drinks per day,Morbid obesity due to excess calories (HCC),Anxiety,Moder ate episode of recurrent major depressive disorder (HCC) Take 1 Tablet by mouth in the morning. In the morning.. 30 Tablet 5 08/04/2023 Active Sildenafil Citrate 25 MG Oral Tablet (Viagra)Indications :Erectile dysfunction, unspecified erectile dysfunction type Take 1 Tablet by mouth daily as needed for Erectile Dysfunction. 1-4 hours before intercourse, no more than 1 dose in 24 hours. 10 Tablet 0 08/04/2023 Active documented as of this encounter (statuses as of 10/03/2023) Active Problems Problem Noted Date Diagnosed Date Body mass index (BMI) of 40.0 to 44.9 in adult 1 11/08/2022 Overview: Per Obesity protocol - Per Obesity protocol - Erectile dysfunction 08/04/2023 Moderate episode of recurrent major depressive d isorder 08/04/2023 Anxiety 08/04/2023 Lymphedema of both lower extremities 08/05/2022 Cataplexy 08/05/2022 Hepatic steatosis 06/03/2022 Syndrome X, metabolic 06/03/2022 Alcohol consumption of more than four drinks per day 06/03/2022 HTN, goal below 140/90 10/06/2017 Morbid obesity due to excess calories 09/05/2016 Overview: Per Obesity protocol #1 Elevated blood pressure, situational 08/08/2014 Chews tobacco 12/14/2012 Abnormal results of liver function studies Allergic rhinitis documented as of this encounter (statuses as of 10/03/2023) Resolved Problems Problem Noted Date Diagnosed Date Resolved Date Body mass index (BMI) of 45. 0 to 49.9 in adult 03/03/2023 09/11/2023 Overview: Per Obesity protocol - Body mass index (BMI) of 40. 0 to 44.9 in adult 07/28/2017 03/05/2023 Overview: Per Obesity protocol #1 Obesity, morbid (more than 1 00 lbs over ideal weight or BMI > 40) 08/08/2014 09/05/2016 Overview: BMI= 41.31 08/08/14 Sebaceous cyst 08/08/2014 09/05/2016 Overview: RIGHT GROIN Obesity, Class II, BMI 35-39 .9, isolated (see actual BMI) 12/14/2012 09/05/2016 Overview: bmi= 38.04 12/14/12 Routine medical exam 12/14/2012 016 Obesity, Class II, BMI 35-39 .9, isolated (see actual BMI) 12/03/2011 09/05/2016 Overview: bmi= 38.91 12/03/11 Behavior-irritability 12/03/20112015 CATAPLEXY ( ORGANIC) 02/06/2010 016 Convulsions 12/15/2009 08/09/2010 Obesity, BMI not known 12/15/200909/05 Routine medical exam 07/26/2009 013 OBESITY, BMI= 38.33 07/26/09 07/26/2009 09/05/2016 TOBACCO USE DISORDER- ORAL 07/26/2009 0 12/14/2012 documented as of this encounter (statuses as of 10/03/2023) Immunizations Name Administration Dates Next Due PPD [...] pur e alcohol) 1 case a week PHQ-2 Answer Date Recorded PHQ Adult Total Score 0 06/03/2022 Sex and Gender Information Value Date Recorded Sex Assigned at Male 07/22/2019 11:35 AM EDT Gender Identity Male 07/22/2019 11:35 AM EDT Sexual Orientation Straight 07/22/2019 11 :35 AM EDT Job Start Date Occupation Industry Not on file Not on file Not on file documented as of this encounter Miscellaneous Notes * Telephone Encounter - Ese Dixon MD - 10/03/2023 9:45 AM EST Needs OV or telemed * Telephone Encounter - Agustina Guaman OSA - 10/02/2023 10:50 AM EST Pt calling requesting a Z-Lexx be sent in to pharmacy for him. He has had a sinus infection for the last 2 weeks. Please return call regarding. documented in this encounter Plan of Treatment Upcoming Encounters Date Type Department Care Team (Late st Contact Info) Description 02/03/2024 1:00 PM EDT Office Visit [facility] [address] [place] [address] Ese Dixon MD [address] [place] [address] Health Maintenance Due Date Last Done Comments Hepatitis B (1 of 3 - 3-dose series) 1980 COVID-19 Vaccine (#1) 1980 GFR 01/11/2023 01/11/2022, 11/28, 11/23/2019, Additional history exists Depression Screening 06/03/2023 [...] filedocumented as of this encounter Care Teams Feather Cutting Machine Feeder Relationship Specialty Start Date End Date Ese Dixon MD [address] [place] [address] PCP - General Family Medicine 08/05/22 documented as of this encounter
--- OUTSIDE RECORDS SUMMARY | 2023-11-17 07:45 | External Medical Summary | Summary of Care ---
Author Name Unknown Organization [facility] Address [address] [place] [address] Phone [phone] Care Team Providers Care Track Dresser Name Role Phone Ese Dixon MD Primary Care Provid er Encounter Details Date Type Department Care Team Description 07/21/2023 Orders Only Outcomes Research Department [address] [place] [address] Emely Gastelum [facility] [employer] Other*[id number] Allergies No known active allergiesdocumented as of this encounter (statuses as of 07/21/2023) Medications Medication Sig Dispensed Refills Start Date End Date Status buPROPion HCl ER (XL) 150 MG Oral Tablet Extended Release 24 Hour (Wellbutrin XL)Indications:Hepati c steatosis,Syndrome X, metabolic,Morbid obesity due to excess calories (HCC),Alcohol consumption of more than four drinks per day TAKE ONE TABLET BY MOUTH IN THE MORNING 30 Tablet 5 01/22/2023 Active Ozempic (0.25 or 0.5 MG/DOSE) 2 MG/1.5ML Solution Pen-injector (Semaglutide(0.25 or 0.5MG/DOS))Indication s:Syndrome X, metabolic,Morbid obesity due to excess calories (HCC),Body mass index (BMI) of 40.0 to 44.9 in adult (HCC),Hepatic steatosis,Abnormal results of liver function studies INJECT 0.25MG UNDER THE SKIN ONCE A WEEK for 4 weeks, then increase to 0.5 mg weekly. 1.5 mL 5 02/03/2023 Active Chlorthalidone 25 MG Oral Tablet (Hygroton)Indications :HTN, goal below 140/90 Take 1 Tablet by mouth in the morning. In the morning.. 90 Tablet 3 02/03/2023 Active Lisinopril 40 MG Oral TabletIndications:HTN , goal below 140/90 Take 1 Tablet by mouth in the morning. 90 Tablet 3 02/03/2023 Active documented as of this encounter (statuses as of 07/21/2023) Active Problems Problem Noted Date Body mass [...] as of this encounter (statuses as of 07/21/2023) Resolved Problems Problem Noted Date Resolved Date [...] as of this encounter (statuses as of 07/21/2023) Immunizations Name Administration Dates Next Due PPD [...] as of this encounter Plan of Treatment Upcoming Encounters Date Type Specialty Care Team Description 08/04/2023 Office Visit Family Medicine Ese Dixon MD [address], [place] [id number] Scheduled Orders Name Type Priority Associated Diagnoses Orde r Schedule MYCODE SUBSEQUENT ADULT Lab Routine My[employer] Research Other*[id number] Every 6 Months for 2 Occurrences starting 07/21/2023 until 08/09/2024 Health Maintenance Due Date Last Done Comments [...] - Td or Tdap) 12/22/2030 12/22/2020, 10/27/2003 Hepatitis C Screening Completed 08/29/2008, 008 GARDASIL-HPV IMMUNIZATION SERIES Aged Out No longer [...] Not on filedocumented as of this encounter Visit Diagnoses Diagnosis [employer] Research Other*[id number] documented in this encounter Care Teams Track Dresser Relationship Specialty Start Date End Date Ese Dixon MD [address] [place] [address] PCP - General Family Medicine 08/05/22 documented as of this encounter
--- OUTSIDE RECORDS SUMMARY | 2023-11-17 07:45 | External Medical Summary | Summary of Care ---
Author Name Unknown Organization [facility] Address [address] [place] [address] Phone [phone] Care Team Providers Care Manager Solution Name Role Phone Ese Dixon MD Primary Care Provid er Reason for Visit * Reason Onset Date Comments Med Request 10/02/2023 Encounter Details Date Type Department Care Team (Late st Contact Info) Description 10/02/2023 Telephone Access Center, [place] [address] [facility] *DO NOT REMOVE THIS DEPARTMENT* [place] [address] Services, Scheduling [address] [place] [address] Med Request Allergies No known active allergiesdocumented [...] now 1 can per day last tried 2004 Alcohol Use Standard Drinks/Week Comments Yes 0 [...] encounter Miscellaneous Notes * Telephone Encounter - Shana Lr LPN - 10/03/2023 10:12 AM EST Please assist pt with scheduling appt Dr. Dixon - [email or web address] * Telephone Encounter - Ese Dixon MD [...] Description 02/03/2024 1:00 PM EDT Office Visit [facility] [address] [place] [address] Ese Dixon MD [address] [place] [address] Health Maintenance Due Date Last Done Comments [...] filedocumented as of this encounter Care Teams Manager Solution Relationship Specialty Start Date End Date Ese Dixon MD [address] [place] [address] PCP - General Family Medicine 08/05/22 documented as of this encounter
--- OUTSIDE RECORDS SUMMARY | 2023-11-17 07:45 | External Medical Summary | Summary of Care ---
Author Name Unknown Organization [facility] Address [address] [place] [address] Phone [phone] Care Team Providers Care Weaving Inspector Name Role Phone Ese Dixon MD Primary Care Provid er Reason for Visit * Reason Comments Follow Up Encounter Details Date Type Department Care Team Description 08/04/[address] [facility] [address] [place] [address] Ese Dixon MD [address] [place] [address] Acute frontal sinusitis, recurrence not specified*; Hepatic steatosis; Syndrome X, metabolic; Alcohol consumption of more than four drinks per day; Morbid obesity due to excess calories (HCC); Anxiety; Moderate episode of recurrent major depressive disorder (HCC); Erectile dysfunction, unspecified erectile dysfunction type Allergies No known active allergiesdocumented as of this encounter (statuses as of 08/04/2023) Medications Medication Sig Dispensed Refills Start Date End Date Status Ozempic (0.25 or 0.5 MG/DOSE) 2 MG/1.5ML Solution Pen-injector (Semaglutide(0.25 or 0.5MG/DOS))Indica tions:Syndrome X, metabolic,Morbid obesity due to excess calories (HCC),Body mass index (BMI) of 40.0 to 44.9 in adult (HCC),Hepatic steatosis,Abnorma l results of liver function studies INJECT 0.25MG UNDER THE SKIN ONCE A WEEK for 4 weeks, then increase to 0.5 mg weekly. 1.5 mL 5 02/03/2023 Active Additional Information Patient not taking.Reported on 08/04/2023 Chlorthalidone 25 MG Oral Tablet (Hygroton)Indicat ions:HTN, goal below 140/90 Take 1 Tablet by mouth in the morning. In the morning.. 90 Tablet 3 02/03/2023 Active Lisinopril 40 MG Oral TabletIndications :HTN, goal below 140/90 Take 1 Tablet by mouth in the morning. 90 Tablet 3 02/03/2023 Active Amoxicillin 875 MG Oral TabletIndications :Acute frontal sinusitis, recurrence not specified Take 1 Tablet by mouth in the morning and 1 Tablet before bedtime. Do all this for 10 days. 20 Tablet 0 08/04/2023 3 Active Sertraline HCl 25 MG Oral Tablet (Zoloft)Indicatio ns:Anxiety,Modera te episode of recurrent major depressive disorder (HCC) Take 1 Tablet by mouth in the morning. 30 Tablet 11 08/04/2023 Active buPROPion HCl ER (XL) 150 MG Oral Tablet Extended Release 24 Hour (Wellbutrin XL)Indications:He patic steatosis,Syndrom e X, metabolic,Alcohol consumption of more than four drinks per day,Morbid obesity due to excess calories (HCC),Anxiety,Mod erate episode of recurrent major depressive disorder (HCC) Take 1 Tablet by mouth in the morning. In the morning.. 30 Tablet 5 08/04/2023 Active Sildenafil Citrate 25 MG Oral Tablet (Viagra)Indicatio ns:Erectile dysfunction, unspecified erectile dysfunction type Take 1 Tablet by mouth daily as needed for Erectile Dysfunction. 1-4 hours before intercourse, no more than 1 dose in 24 hours. 10 Tablet 0 08/04/2023 Active buPROPion HCl ER (XL) 150 MG Oral Tablet Extended Release 24 Hour (Wellbutrin XL)Indications:He patic steatosis,Syndrom e X, metabolic,Morbid obesity due to excess calories (HCC),Alcohol consumption of more than four drinks per day TAKE ONE TABLET BY MOUTH IN THE MORNING 30 Tablet 5 01/22/2023 3 Discontinued documented as of this encounter (statuses as of 08/04/2023) Active Problems Problem Noted Date Erectile dysfunction 08/04/2023 Moderate episode of recurrent major depr essive disorder 08/04/2023 Anxiety 08/04/2023 Body mass index (BMI) of 45.0 to [...] 12/15/2009 08/09/2010 Obesity, BMI not known 12/15/2009 Routine medical exam 07/26/2009 12/14/2012 OBESITY, BMI= 38.33 07/26/09 07/26/200908/27 TOBACCO USE DISORDER- ORAL 07/26/200912/14 documented as of this encounter (statuses as of 08/04/2023) Immunizations Name Administration Dates Next Due PPD 10/02/2016 TD, Preservative Free 12/22/2020 TDAP (age 11 and older)(Adacel) 10/27/2003 documented as of this encounter Social History Tobacco Use Types Packs/Day Years Used Date Smoking Tobacco: Never Smokeless Tobacco: Current Chew Tobacco Cessation:Ready to Q uit: Not Asked; Counseling Given: Not Answered Comments:began at age 13 now 1 can per day last tried 2003 Alcohol Use Standard Drinks/Week Comments Yes 0 (1 standard drink = 0.6 oz pur e alcohol) 1 case a week Sex Assigned at Date Recorded Male 07/22/2019 11:35 AM EDT Job Start Date Occupation Industry Not on file Not on file Not on file documented as of this encounter Last Filed Vital Signs Vital Sign Reading Time Taken Comments Blood Pressure 126/88 08/04/2023 11:37 AM EDT Pulse 76 08/04/2023 11:37 AM EDT Temperature 36.6 C (97.8 F) 08/04/2023 1 1:37 AM EDT Respiratory Rate 18 08/04/2023 11:3 7 AM EDT Oxygen Saturation 98% 08/04/2023 11: 37 AM EDT Inhaled Oxygen Concentration - - Weight 149.4 kg (329 lb 4.8 oz) 023 11:37 AM EDT Height 182.9 cm (6') 08/04/2023 11:37 AM EDT Body Mass Index 44.66 08/04/2023 11:37 AM EDT documented in this encounter Progress Notes * Ese Dixon MD - 08/04/2023 11:42 AM EDT ASSESSMENT / PLAN: Jesse Rodriguez is a 43 year old male with PMHx metabolic syndrome / hepatic steatosis / etoh use / chews tobacco / HTN / hepatic steatosis / suspected SHIMON - here for recheck #sinus infection Rec empiric abx #Obesity / metabolic syndrome X Cont ozempic, no side effects so far, has improved weight loss Continue to cut down calories (soda, beer) and increase exercise (lives next door to weight training gym Update labs #HTN Improved cont lisinopril 40mg daily + chlorthalidone 25 mg daily #Anxiety with depression Try going back on wellbutrin (he stopped this accidentally several months ago) If not improved, could either add or switch to sertraline #ED Trial viagra Screenings/anticipatory guidance reviewed include if applicable nutrition, family planning/contraception, physical activity, healthy weight, injury prevention, misuse of tobacco, alcohol and drugs, sexual behavior and STDs, dental health, mental health, immunizations, age appropriate screenings: Next colon ca screening due age 45 Due for Flu If applicable Starting age 19: Screening for Cholesterol every five years beginning at 20 years of age, chlamydiafor sexually active women under 25 years of age, HIV Starting age 40: Screening for Cholesterol, diabetes, colorectal cancer beginning at 50 years, HIV Follow Up: Return in about 6 months (around 02/03/2024) for Labs Today. | For: Labs Today | Check-outnote: [facility] - COMP PANEL only please Acute frontal sinusitis, recurrence not specified (Primary) - Amoxicillin 875 MG Oral Tablet; Take 1 Tablet by mouth in the morning and 1 Tablet before bedtime. Do all this for 10 days. - COMPREHENSIVE METABOLIC PANEL; Future; Expected date: 08/04/2023 Hepatic steatosis - buPROPion HCl ER (XL) 150 MG Oral Tablet Extended Release 24 Hour (Wellbutrin XL); Take 1 Tablet by mouth in the morning. In the morning.. - COMPREHENSIVE METABOLIC PANEL; Future; Expected date: 08/04/2023 Syndrome X, metabolic - buPROPion HCl ER (XL) 150 MG Oral Tablet Extended Release 24 Hour (Wellbutrin XL); Take 1 Tablet by mouth in the morning. In the morning.. - COMPREHENSIVE METABOLIC PANEL; Future; Expected date: 08/04/2023 Alcohol consumption of more than four drinks per day - buPROPion HCl ER (XL) 150 MG Oral Tablet Extended Release 24 Hour (Wellbutrin XL); Take 1 Tablet by mouth in the morning. In the morning.. - COMPREHENSIVE METABOLIC PANEL; Future; Expected date: 08/04/2023 Morbid obesity due to excess calories (HCC) - buPROPion HCl ER (XL) 150 MG Oral Tablet Extended Release 24 Hour (Wellbutrin XL); Take 1 Tablet by mouth in the morning. In the morning.. - COMPREHENSIVE METABOLIC PANEL; Future; Expected date: 08/04/2023 Anxiety - Sertraline HCl 25 MG Oral Tablet (Zoloft); Take 1 Tablet by mouth in the morning. - buPROPion HCl ER (XL) 150 MG Oral Tablet Extended Release 24 Hour (Wellbutrin XL); Take 1 Tablet by mouth in the morning. In the morning.. - COMPREHENSIVE METABOLIC PANEL; Future; Expected date: 08/04/2023 Moderate episode of recurrent major depressive disorder (HCC) - Sertraline HCl 25 MG Oral Tablet (Zoloft); Take 1 Tablet by mouth in the morning. - buPROPion HCl ER (XL) 150 MG Oral Tablet Extended Release 24 Hour (Wellbutrin XL); Take 1 Tablet by mouth in the morning. In the morning.. - COMPREHENSIVE METABOLIC PANEL; Future; Expected date: 08/04/2023 Erectile dysfunction, unspecified erectile dysfunction type - Sildenafil Citrate 25 MG Oral Tablet (Viagra); Take 1 Tablet by mouth daily as needed for Erectile Dysfunction. 1-4 hours before intercourse, no more than 1 dose in 24 hours. - COMPREHENSIVE METABOLIC PANEL; Future; Expected date: 08/04/2023 Follow Up: Return in about 6 months (around 02/03/2024) for Labs Today. | For: Labs Today | Check-outnote: [facility] - COMP PANEL only please If needed, prefers contact by: Ok to leave message on phone: SUBJECTIVE: Nursing Notes: Valeria Lopez, [facility] 08/04/23 1138 Signed Jesse Rodriguez is a 43 year old male who presents today for Chief Complaint Patient presents with Follow Up HPI: Jesse Rodriguez is a 43 year old male. Here for recheck. Adherent with ozempic - was wondering if it was causing anxiety, self dc'd to see, didn't make a difference to anxiety though. 08/04/23 MARIANO = 18 PHQ = 16 Started Ozempic 08/05/22 02/03/2023 08/04/2023 VISIT WEIGHT TREND Weight 341 lb 14.4 oz (H) 329 lb 4.8 oz (H) (H) High Latest Reference Range & Units 06/17/22 09:44 TSH 0.27 - 4.20 uIU/mL 1.16 Latest Reference Range & Units 06/17/22 09:44 Triglycerides <=174 mg/dL 77 Cholesterol <200 mg/dL 157 Non-HDL Cholesterol <=159 mg/dL 81 HDL Cholesterol >39 mg/dL 76 LDL Cholesterol <=129 mg/dL 66 TSH 0.27 - 4.20 uIU/mL 1.16 TSH WITH FREE T4 IF INDICATED Rpt AST 10 - 50 U/L 90 (H) ALT 10 - 50 U/L 86 (H) (H): Data is abnormally high Rpt: View report in Results Review for more information Reviewed sources 1- Patient Active Problem List Diagnosis Code Abnormal results of liver function studies R94.5 Allergic rhinitis J30.9 Chews tobacco Z72.0 Elevated blood pressure, situational R03.0 Morbid obesity due to excess calories ([facility]) E66.01 HTN, goal below 140/90 I10 Hepatic steatosis K76.0 Syndrome X, metabolic E88.810 Alcohol consumption of more than four drinks per day Z78.9 Lymphedema of both lower extremities I89.0 Cataplexy G47.411 Body mass index (BMI) of 45.0 to 49.9 in adult ([facility]) Z68.42 Erectile dysfunction N52.9 Moderate episode of recurrent major depressive disorder ([facility]) F33.1 Anxiety F41.9 Current Outpatient Medications Medication Sig Dispense Refill Chlorthalidone 25 MG Oral Tablet (Hygroton) Take 1 Tablet by mouth in the morning. In the morning..90 Tablet 3 Lisinopril 40 MG Oral Tablet Take 1 Tablet by mouth in the morning. 90 Tablet 3 Amoxicillin 875 MG Oral Tablet Take 1 Tablet by mouth in the morning and 1 Tablet before bedtime. Do all this for 10 days. 20 Tablet 0 Sertraline HCl 25 MG Oral Tablet (Zoloft) Take 1 Tablet by mouth in the morning. 30 Tablet 11 buPROPion HCl ER (XL) 150 MG Oral Tablet Extended Release 24 Hour (Wellbutrin XL) Take 1 Tablet by mouth in the morning. In the morning.. 30 Tablet 5 Sildenafil Citrate 25 MG Oral Tablet (Viagra) Take 1 Tablet by mouth daily as needed for Erectile Dysfunction. 1-4 hours before intercourse, no more than 1 dose in 24 hours. 10 Tablet 0 Ozempic (0.25 or 0.5 MG/DOSE) 2 MG/1.5ML Solution Pen-injector (Semaglutide(0.25 or 0.5MG/DOS)) INJECT 0.25MG UNDER THE SKIN ONCE A WEEK for 4 weeks, then increase to 0.5 mg weekly. (Patient not taking: Reported on 08/04/2023) 1.5 mL 5 No current facility-administered medications for this visit. OBJECTIVE: BP 126/88 (BP Site: Right Arm, BP Position: Sitting, BP Cuff Size: Regular) | Pulse 76 | Temp 36.6 C (97.8 F) (Temporal Artery) | Resp 18 | Ht 1.829 m (6') | Wt (!) 149.4 kg (329 lb 4.8 oz) | SpO2 98% | BMI 44.66 kg/m | BSA 2.75 m Vitals reviewed and is normotensive / afebrile / and not tachycardic General: No acute distress. Neuro: Alert Pleasant & interactive. Respiratory: Good inspiratory effort, no labored breathing. CTAB CV: RRR no M R G HEENT: Conjunctivae appear clear. No swelling noted face or lips. Skin: No rash visible on exposed skin areas, normal coloration & appears dry. Psych: Normal affect. Fluent speech. I spent a total of 40-54 minutes (exact time 40 mins) on the date of service in preparation, delivery, and documentation of the care provided to Jesse Rodriguez excluding any time spent in the performance of separately billed services. Ese Dixon MD [address] [address] There are no Patient Instructions on file for this visit. documented in this encounter Nursing Notes * NORM Mayorga - 08/04/2023 11:36 AM EDT Jesse Rodriguez is a 43 year old male who presents today for Chief Complaint Patient presents with Follow Up documented in this encounter Plan of Treatment Upcoming Encounters Date Type Specialty Care Team Description 02/03/2024 Office Visit Family Medicine Ese iDxon MD [address] [place] [address] Scheduled Orders Name Type Priority Associated Diagnoses Orde r Schedule COMPREHENSIVE METABOLIC PANEL Lab Routine Acute frontal sinusitis, recurrence not specified Hepatic steatosis Syndrome X, metabolic Alcohol consumption of more than four drinks per day Morbid obesity due to excess calories (HCC) Anxiety Moderate episode of recurrent major depressive disorder (HCC) Erectile dysfunction, unspecified erectile dysfunction type Expected: 08/04/2023 (Approximate), Expires: 08/03/2024 Health Maintenance Due Date Last Done Comments [...] as of this encounter Visit Diagnoses Diagnosis Acute frontal sinusitis, recurrence not specified- Primary Hepatic steatosis Other chronic nonalcoholic liver disease Syndrome X, metabolic Dysmetabolic Syndrome X Alcohol consumption of more than four drinks per day Other problems related to lifestyle Morbid obesity due to excess calories (HCC) Anxiety Anxiety state, unspecified Moderate episode of recurrent major depressive disorder (HCC) Erectile dysfunction, unspecified erectile dysfunction type documented in this encounter Care Teams Weaving Inspector Relationship Specialty Start Date End Date Ese Dixon MD [address] [place] [address] PCP - General Family Medicine 08/05/22 documented as of this encounter"
--- OUTSIDE RECORDS SUMMARY | 2023-11-17 07:45 | External Medical Summary | Summary of Care ---
Author Name Unknown Organization [facility] Address [address] [place] [address] Phone [phone] Care Team Providers Care Rod Tape Operator Name Role Phone Ese Dixon MD Primary Care Provid er Reason for Visit * Reason Onset Date Comments Med Request 10/02/2023 Encounter Details Date Type Department Care Team (Late st Contact Info) Description 10/02/2023 Telephone Access Center, [place] [address] [facility] *DO NOT REMOVE THIS DEPARTMENT* [place] [address] Services, Scheduling [address] [place] [address] Med Request Allergies No known active allergiesdocumented [...] encounter Miscellaneous Notes * Telephone Encounter - Ghislaine Shoemaker CPhT - 10/03/2023 10:40 AM EST Pt calling back, I advised of needing an appt. He refused, said he didn't have time to come in. Thank you, Ghislaine Shoemaker CPhT Special Services Supervisor [facility] ([facility]formerly telepharmacy) 10/03/2023,10:41 AM * Telephone Encounter - Mahsa Samuels OSA - 10/03/2023 10:15 AM EST Called to schedule. Phone called was pushed to [facility]. 10/03/2023 * Telephone Encounter - Shana Lr LPN - 10/03/2023 10:12 AM EST Please assist pt with scheduling appt Dr. Dixon - chelsea * Telephone Encounter - Ese Dixon MD [...] Description 02/03/2024 1:00 PM EDT Office Visit [facility] [address] [place] [address] Ese Dixon MD [address] [place] [address] Health Maintenance Due Date Last [...] filedocumented as of this encounter Care Teams Rod Tape Operator Relationship Specialty Start Date End Date Ese Dixon MD [address] [place] [address] PCP - General Family Medicine 08/05/22 documented as of this encounter
--- OUTSIDE RECORDS SUMMARY | 2023-11-17 07:45 | External Medical Summary | Summary of Care ---
Author Name Unknown Organization [facility] Address [address] [place] [address] Phone [phone] Care Team Providers Care Operations Research Director Name Role Phone Ese Dixon MD Primary Care Provid er Reason for Visit * Reason Onset Date Comments Med Request 10/02/2023 Encounter Details Date Type Department Care Team (Late st Contact Info) Description 10/02/2023 Telephone Access Center, [place] [address] [facility] *DO NOT REMOVE THIS DEPARTMENT* [place] [address] Services, Scheduling [address] [place] [address] Med Request Allergies No known active allergiesdocumented [...] Description 02/03/2024 1:00 PM EDT Office Visit [facility] [address] [place] [address] Ese Dixon MD [address] [place] [address] Health Maintenance Due Date Last Done Comments [...] filedocumented as of this encounter Care Teams Operations Research Director Relationship Specialty Start Date End Date Ese Dixon MD [address] [place] [address] PCP - General Family Medicine 08/05/22 documented as of this encounter
--- OUTSIDE RECORDS SUMMARY | 2023-11-17 07:45 | External Medical Summary | Summary of Care ---
Author Name Unknown Organization [facility] Address [address] [place] [address] Phone [phone] Care Team Providers Care Air Pumper Name Role Phone Ese Dixon MD Primary Care Provid er Reason for Visit * Reason Onset Date Comments Med Request 10/02/2023 Appointment 10/02/2023 Encounter Details Date Type Department Care Team (Late st Contact Info) Description 10/02/2023 Telephone Access Center, [place] [address] [facility] *DO NOT REMOVE THIS DEPARTMENT* [place] [address] Services, Scheduling [address] [place] [address] Med Request; Appointment Allergies No known active allergiesdocumented as of [...] encounter Miscellaneous Notes * Telephone Encounter - Aris Ha OSA - 10/03/2023 11:02 AM EST No Appointments Available Patient declined appointments?: No What Visit Type is needed? Acute If Acute Visit Type is needed, were surrounding clinics offered to patient (Yes/No)? No, explain Noappointments Was patient offered appointments with other available providers (Yes/No)? No, explain No appointments See Call Details? (Yes or No): Yes * Telephone Encounter - Ghislaine Shoemaker CPhT - 10/03/2023 10:40 AM EST Pt calling back, I advised of needing an appt. He refused, said he didn't have time to come in. Thank you, Ghislaine Shoemaker CPhT Legal Analyst [facility] ([facility]formerly telepharmacy) 10/03/2023,10:41 AM * Telephone Encounter - Mahsa Samuels OSA - 10/03/2023 10:15 AM EST Called to schedule. Phone called was pushed to [facility]. 10/03/2023 * Telephone Encounter - Shana Lr [...] Description 02/03/2024 1:00 PM EDT Office Visit [facility] [address] [place] [address] Ese Dixon MD [address] [place] [address] Health Maintenance Due Date Last Done Comments Hepatitis B (1 of 3 - 3-dose series) 1980 COVID-19 Vaccine (#1) 1980 GFR 01/11/2023 01/11/2022, 02/03/2021, 11/23/2019, Additional history exists Depression Screening 06/03/2023 [...] filedocumented as of this encounter Care Teams Air Pumper Relationship Specialty Start Date End Date Ese Dixon MD [address] [place] [address] PCP - General Family Medicine 08/05/22 documented as of this encounter
--- OUTSIDE RECORDS SUMMARY | 2023-11-17 07:45 | External Medical Summary | Summary of Care ---
Author Name Unknown Organization [facility] Address [address] [place] [address] Phone [phone] Care Team Providers Care Pantry Goods Worker Name Role Phone Ese Dixon MD Primary Care Provid er Reason for Visit * Reason Onset Date Comments Med Request 10/02/2023 Appointment 10/02/2023 Encounter Details Date Type Department Care Team (Late st Contact Info) Description 10/02/2023 Telephone Access Center, [place] [address] [facility] *DO NOT REMOVE THIS DEPARTMENT* [place] [address] Services, Scheduling [address] [place] [address] Med Request; Appointment Allergies No known active [...] encounter Miscellaneous Notes * Telephone Encounter - Mahsa Samuels OSA - 10/03/2023 11:50 AM EST Patient was upset that he needed an appointment as he hasn't needed an appointment and has gotten this before. Nothing in [place], , [place] or [place]. Advised patient to go to [facility]. Patient understood. 10/03/2023 * Telephone Encounter - Aris Ha OSA [...] come in. Thank you, Ghislaine Shoemaker CPhT Junction Maker [facility] ([facility]formerly telepharmacy) 10/03/2023,10:41 AM * Telephone Encounter - Mahsa Samuels OSA - 10/03/2023 10:15 AM EST Called to schedule. Phone called was pushed to [facility]. 10/03/2023 * Telephone Encounter - Shana Lr LPN - 10/03/2023 10:12 AM EST Please assist pt with scheduling appt Dr. Dxion - chelsea * Telephone Encounter - Ese [...] Description 02/03/2024 1:00 PM EDT Office Visit [facility] [address] [place] [facility] [place] [address] Ese Dixon MD [address] [place] [address] Health Maintenance Due Date Last [...] filedocumented as of this encounter Care Teams Pantry Goods Worker Relationship Specialty Start Date End Date Ese Dixon MD [address] [place] [address] PCP - General Family Medicine 08/05/22 documented as of this encounter
--- OUTSIDE RECORDS SUMMARY | 2023-11-17 07:45 | External Medical Summary | Summary of Care ---
Author Name Unknown Organization [facility] Address [address] [place] [address] Phone [phone] Care Team Providers Care Appraiser Boats And Marine Name Role Phone Ese Dixon MD Primary Care Provid er Reason for Visit * Reason Onset Date Comments Med Request 10/02/2023 Encounter Details Date Type Department Care Team (Late st Contact Info) Description 10/02/2023 Telephone Access Center, [place] [address] [facility] *DO NOT REMOVE THIS DEPARTMENT* [place] [address] Services, Scheduling [address] [place] [address] Med Request Allergies No known active allergiesdocumented [...] to schedule. Phone called was pushed to [facility]. 10/03/2023 * Telephone Encounter - Shana Lr LPN - 10/03/2023 10:12 AM EST Please assist pt with scheduling appt Dr. Dixon - [email or web address] * Telephone Encounter - Ese Dixon MD [...] Description 02/03/2024 1:00 PM EDT [facility] [address] [facility] [place] [phone] Ese Dixon MD [address] [place] [address] Health Maintenance Due Date Last Done Comments [...] filedocumented as of this encounter Care Teams Appraiser [employer] Marine Relationship Specialty Start Date End Date Ese Dixon MD [address] [place] [phone] PCP - General Family Medicine 08/05/22 documented as of this encounter
--- OUTSIDE RECORDS SUMMARY | 2023-11-17 07:45 | External Medical Summary | Summary of Care ---
Author Name Unknown Organization [facility] Address [address] [place] [address] Phone [phone] Care Team Providers Care Slot Editor Name Role Phone Ese Dixon MD Primary Care Provid er Reason for Visit * Reason Onset Date Comments Med Request 10/02/2023 Encounter Details Date Type Department Care Team (Late st Contact Info) Description 10/02/2023 Telephone Access Center, [place] [address] [facility] *DO NOT REMOVE THIS DEPARTMENT* [place] [address] Services, Scheduling [address] [place] [address] Med Request Allergies No known active allergiesdocumented [...] come in. Thank you, Ghislaine Shoemaker CPhT [employer] ([facility]formerly telepharmacy) 10/03/2023,10:41 AM * Telephone Encounter - Mahsa Samuels OSA - 10/03/2023 10:15 AM EST Called to schedule. Phone called was pushed to [facility]. 10/03/2023 * Telephone Encounter - Shana Lr [...] Description 02/03/2024 1:00 PM EDT Office Visit [facility] [address] [place] [address] Ese Dixon MD [address] [place] [address] Health Maintenance Due Date Last [...] filedocumented as of this encounter Care Teams Slot Editor Relationship Specialty Start Date End Date Ese Dixon MD [address] [place] [id number] PCP - General Family Medicine 08/05/22 documented as of this encounter
[2023-11-17 08:13] LABS: Basophils # (auto) 0.02 K/uL (0.00-0.20); Basophils % (auto) 0.2 %; Eosinophils # (auto) 0.08 K/uL (0.00-0.50); Hematocrit (blood only) 38.8 % (42.0-52.0); Hemoglobin 13.3 g/dl (14.0-18.0); Immature Granulocytes # (auto) 0.09 K/uL (0.01-0.20); Immature Granulocytes % (auto) 1.1 %; Lymphocytes # (auto) 2.04 K/uL (1.20-3.40); Lymphocytes % (auto) 25.1 %; Mean Corpuscular Hgb Conc 34.3 g/dL (32.0-36.0); Mean Corpuscular Volume 93.5 fL (80.0-100.0); Mean Platelet Volume 9.7 fL (9.4-12.4); Monocytes # (auto) 0.66 K/uL (0.11-0.59); Monocytes % (auto) 8.1 %; Neutrophils # (auto) 5.25 K/uL (1.40-6.50); Neutrophils % (auto) 64.5 %; Platelet Count 184 K/uL (130-400); RDW Coefficient of Variation 11.9 % (11.5-14.5); RDW Standard Deviation 41.2 fL (36.4-46.3); Red Blood Count 4.15 M/uL (4.70-6.10); White Blood Count 8.14 K/ul (4.8-10.8)
--- NOTE | 2023-11-17 08:15 | CT Scan Report ---
CT head/brain wo con CLINICAL HISTORY: 43 years-old Male with syncope and collapse, forehead injury. TECHNIQUE: Multiple axial CT images of the head were obtained without contrast. A dose lowering tech nique was utilized adhering to the principles of ALARA. CT DOSE: 625.8 mGy.cm COMPARISON: None. FINDINGS: No acute intracranial hemorrhage, midline shift, intracranial mass, hydrocephalus, territorial ischem ia or abnormal extra-axial collection. The calvarium is intact. Large right mastoid effusion. The left mastoid air cells are clear. There is mild mucosal thickening of the ethmoid air cells and right maxillary sinus. IMPRESSION: 1. No acute intracranial abnormality or calvarial fracture. 2. Large right mastoid effusion. ACT 112: Negative or not required by law. The above report was generated using voice recognition software. It may contain grammatical, syntax o r spelling errors. Electronically signed by: Gurpreet Monroe M.D. 11/17/2023 8:13 AM
[2023-11-17 08:30] LABS: Albumin Globulin Ratio 1.1 (0.9-2); BUN Creatinine Ratio 13.3 (10-20); Bilirubin,Total 0.5 mg/dl (0.2-1.0); Calcium 8.8 mg/dl (8.6-10.3); Est GFR (African American) 108.2 ml/min; Est GFR (Non-African American) 93.4 ml/min; Globulin 3.6 gm/dl (2.5-4.0); Magnesium 1.5 mg/dl (1.7-2.4); Potassium 3.6 mmol/L (3.5-5.1); Total Protein 7.6 gm/dl (6.0-8.3)
[2023-11-17 08:36] LABS: Troponin I High Sensitivity 11.6 pg/ml (0-20)
--- NOTE | 2023-11-17 09:23 | History & Physical Report ---
Date of Service November 17, 2023 Assessment & Plan (1) Acute hyponatremia: Plan: This is a 43 y/o male with metabolic syndrome X, HTN, cataplexy, morbid obesity, EtOH abuse, depression, anxiety, chronic LE lymphedema, and newly diagnosed SHIMON who presents to the ED today with increasing frequency of "episodes" of cataplexy over the last few days. Pt was seen by neurology several years ago when he was diagnosed with cataplexy but has not followed with them recently. These episodes have previously been triggered by laughing or coughing, current symptoms seem to be triggered by coughing. Work-up in the ED also reviewed new hyponatremia. Review of outpatient labs shows last sodium in 2021 was 137. - Admit to PCU - Hold diuretic in view of hyponatremia - Serial BMP Q6 hrs - Check serum osmolality, urine osmolality, urine sodium - Consult nephrology for recommendations (2) Cough: Plan: Unclear etiology. Pt is on lisinopril but has been on this for a long time with most recent dose adjustment apparently about nine months ago - Check respiratory panel - Hold lisinopril for now although low suspicion of this as a the cause - Guaifenesin and loratadine scheduled, prn anti-tussives (3) Hypomagnesemia: Plan: Repletion ordered by ED provider - will recheck in the AM (4) Left shoulder pain: Plan: s/p fall - check left shoulder x-ray (5) Cataplexy: Plan: Increasing frequency of episodes of LOC - Check EEG to r/o seizure, especially in view of new urinary incontinence not associated with prior episodes - Consult neurology - Echo, carotid duplex for completeness of potential syncope work-up (6) Lymphedema of both lower extremities: Plan: Chronic, stable (7) Essential hypertension: Plan: Changing to amlodipine to avoid use of ACEI with ongoing cough, although may not be related. When evaluated in the ED, BP was borderline 90s/60s so will start amlodipine tomorrow and monitor closely (8) Syndrome X, metabolic: Plan: Pt is to be on Ozempic as outpatient but not currently taking. Encouraged f/u with PCP to discuss this further. - Check A1c and lipid panel in the AM. - Trial of CPAP while admitted (9) Alcohol use: Plan: Drinks six pack of beer daily - At-risk CIWA prn Ativan protocol Plan Pt seen and reviewed with collaborating physician, Dr. Glez. Plan of care discussed and as outlined above. Code Status: Full code DVT Prophylaxis: Lovenox NOTE: Needs appointment with sleep medicine at discharge to f/u on CPAP. Shawn Mcintosh PA-C History of Present Illness Chief Complaint: worsening cough, passing out Primary Care Provider: Shelton [place] MD This is a 43 y/o male with metabolic syndrome X, HTN, cataplexy, morbid obesity, EtOH abuse, depression, anxiety, chronic LE lymphedema, and newly diagnosed SHIMON who presents to the ED today with increasing frequency of "episodes" of cataplexy over the last few days. Pt reports that around he developed URI symptoms and was seen at urgent care and given a course of antibiotics. Symptoms persisted so he went back to urgent care and was given a second course of antibiotics. He reports persistent cough despite antibiotics, but specifically that this has worsened over the last four days. Cough may be episodic, is intermittently productive of clear to brown mucus. These episodes of coughing seem to trigger the episodes of passing out. With the episode this morning, he fell and hit his head with a resultant abrasion. He also notes new urinary incontinence that started overnight and may be associated with the episodes of LOC. He notes some mild sinus congestion, but denies rhinorrhea, fevers, chills. He is on Lisinopril, which was last increased about nine months ago. He notes being diagnosed with SHIMON but never followed up for CPAP. He is also supposed to be on Ozempic but stopped taking this although he is unclear as to why. Allergies Allergy/AdvReac Type Severity Reaction Status Date / Time No Known Allergies Allergy Unverified 07/21/19 22:56 Home Medications Medication Instructions Recorded Confirmed Type lisinopril 40 mg tablet 40 mg PO DAILY 07/21/19 11/17/23 History chlorthalidone 25 mg tablet 25 mg PO DAILY 11/17/23 11/17/23 History semaglutide 0.25 mg or 0.5 mg (2 0.5 mg subcut WK 11/17/23 11/17/23 History mg/3 mL) subcutaneous pen injector (Ozempic) Past Med/Surg History Medical History Anxiety Hepatic steatosis Essential hypertension Cataplexy Lymphedema of both lower extremities Syndrome X, metabolic Major depression Morbid obesity Surgical History Hx of vasectomy Family History Grandmother Myocardial infarction Other Stroke Social History Smoking Status: Former smoker Tobacco Type: Smokeless Tobacco (Dip or Chew) Second Hand Exposure: Yes; Do You Dip or Chew Tobacco: Yes; Hx Alcohol Use: Yes Alcohol type: beer Alcohol type Comment: 6 pack/day Hx Substance Use: No Preferred Language: Ukrainian Communication Ability: Effective Excellence Consultant Required: No Beliefs That Will Affect Care: None Current Living Situation: Alone Other Information That Helps Us Care for You: No Feels Safe at Home: Yes Safety Concerns: Feels Safe At This Time Review of Systems Review of Systems: All systems reviewed & are unremarkable except as noted in HPI & below Constitutional: no fever and no chills Ear, Nose, Mouth, Throat: + sinus pain/pressure; no nasal discharg e and no sore throat Respiratory: + cough Cardiovascular: + chest pain (after fall - on left) Gastrointestinal: no abdominal pain, no nausea, no vomiting and no diarrhea/loose stools Genitourinary: + urinary incontinence; no dysuria, no u rinary frequency or no hematuria Musculoskeletal: + joint pain (left shoulder) Neurologic: as per Subjective / HPI Physical Exam Physical Exam: See physician addendum for details of the physical exam Results & Data Results & Data Vital Signs (Past 12 Hours) Vital Signs Temp Pulse Pulse Resp BP BP Pulse Ox 11/17/23 08:12 84 11/17/23 07:55 36.7 C 81 22 121/73 98 11/17/23 07:55 99 11/17/23 07:30 37.0 C 84 16 134/85 97 O2 Del Method 11/17/23 08:12 11/17/23 07:55 Room Air 11/17/23 07:55 Room Air 11/17/23 07:30 Room Air Laboratory Results Laboratory Results - last 24 hr 11/17/23 11/17/23 07:51 07:57 WBC 8.14 RBC 4.15 L Hgb 13.3 L Hct 38.8 L MCV 93.5 MCH 32.0 MCHC 34.3 RDW Std Deviation 41.2 RDW Coeff of Nirmal 11.9 Plt Count 184 MPV 9.7 Immature Gran % (Auto) 1.1 Neut % (Auto) 64.5 Lymph % (Auto) 25.1 Sanders % (Auto) 8.1 Eos % (Auto) 1.0 Baso % (Auto) 0.2 Neut # (Auto) 5.25 Lymph # (Auto) 2.04 Sanders # (Auto) 0.66 H Eos # (Auto) 0.08 Baso # (Auto) 0.02 Immature Gran # (Auto) 0.09 Sodium 120 L Potassium 3.6 Chloride 86 L Carbon Dioxide 25 Anion Gap 9 BUN 13 Creatinine 0.98 Est Cr Clr Drug Dosing 146.0 Est GFR ( Amer) 108.2 Est GFR (Non-Af Amer) 93.4 BUN/Creatinine Ratio 13.3 Glucose 154 H Osmolality Pending Lactate 1.6 Calcium 8.8 Magnesium 1.5 L Total Bilirubin 0.5 AST 42 H ALT 30 Alkaline Phosphatase 60 Troponin I High Sens 11.6 Total Protein 7.6 Albumin 4.0 Globulin 3.6 Albumin/Globulin Ratio 1.[address] 11/17/23 07:39 CT head/brain wo con CLINICAL HISTORY: 43 years-old Male with syncope and collapse, forehead injury. TECHNIQUE: Multiple axial CT images of the head were obtained without contrast. A dose lowering technique was utilized adhering to the principles of ALARA. CT DOSE: 625.8 mGy.cm COMPARISON: None. FINDINGS: No acute intracranial hemorrhage, midline shift, intracranial mass, hydrocephalus, territorial ischemia or abnormal extra-axial collection. The calvarium is intact. Large right mastoid effusion. The left mastoid air cells are clear. There is mild mucosal thickening of the ethmoid air cells and right maxillary sinus. IMPRESSION: 1. No acute intracranial abnormality or calvarial fracture. 2. Large right mastoid effusion. ACT 112: Negative or not required by law. The above report was generated using voice recognition software. It may contain grammatical, syntax or spelling errors. Electronically signed by: Gurpreet Monroe M.D. 11/17/2023 8:13 AM Medications Administered Discontinued Medications Sodium Chloride (Nss) 1,000 mls @ 999 mls/hr IV .Q1H1M [facility] Stop: 11/17/23 08:45 Last Infusion: 11/17/23 09:00 Dose: Infused Documented By: Admin: 11/17/23 07:55 Dose: 999 mls/hr Documented By: JOCELYN Supervising Physician Co-Signing Physician Notes History and physical exam performed by me 43 year old man with morbid obesity, sleep apnea, hypertension, daily alcohol use, cataplexy who presents with syncopal episodes over the past few days and cough that has worsened recently. Reports he has been coughing since before last Thanksgiving. Was treated for URI and had antibiotics but symptoms have persisted. Reports coughing bouts. Cough had worsened over the past 4 days, associated with episodes of passing out, shaking episodes similar to his cataplexy spells in the past. Overnight, he had another episode and had urinary incontinence at the time. He also fell on the carpet and feels some pain on left shoulder and left side of chest where he fell. Reports sinus congestion. No sorethroat or post nasal drip Reports cough is occasionally productive Drinks 6 pack of beer daily, last was last night. Reports he was diagnosed with sleep apnea but hasn't got the machine yet Was on ozempic for weight loss but stated he stopped this a while ago Denied smoking but chews tobacco. Though girlfriend smokes Denied illicit drug use. On exam, General: Morbid obesity. No acute distress. Bruise on left forehead Eyes: PERRL, conjunctivae normal, not pale, anicteric sclerae, EOM intact bilaterally ENMT: External ear and nose normal, oropharynx normal Neck: Normal visual inspection, Thick neck Respiratory: Normal respiratory effort, no respiratory distress, distant breath sounds likely due to body habitus. On room air Cardiovascular: RRR S1 S2 Chest (Breasts): Normal inspection of chest. No bruises noted Gastrointestinal (Abdomen): Abdomen is not distended, soft, non-tender to palpation, no guarding, no palpable hepatosplenomegaly, normal bowel sounds Musculoskeletal: No pedal edema, Some tenderness over left shoulder. Normal power Neurologic: Alert and oriented x 3, No focal weakness, sensation grossly intact Psychiatric: Euthymic affect Labs notable for Na 120, Cl 86, Mg 1.5, Serum Osm 259 CT head did not show acute intracranial abnormalities but noted large right mastoid effusion CXR did not show any acute abnormalities Syncopal episodes Possible cataplexy since episodes are usually associated with cough Hyponatremia Hypomagnesemia Cough may be due to sinusitis based on history and CT finding. However, there is also possibility of ACEI related since Per [facility] chart review, PCP had treated frontal sinusitis on 08/04/23 Stop chlorthalidone Replete hypomagnesemia Get Uosm, Hong. Check BMP q6h. Nephro c/s Counseled patient extensively regarding alcohol cessation. [facility] protocol Chart review also showed he had not followed up with Sleep medicine and had canceled some appts. Counseled regarding this. Trial of CPAP while inpt. Will need f/u appt with sleep medicine on dc PCP noted pt has metabolic syndrome Check A1c, Lipid panel BP during my eval was 98/60. Had not taken any BP meds today. Will hold lisinopril for now in view of this and incase if contributing to cough. Use amlodipine 5mg daily to manage BP Get resp PCR Guaifenesin 1200mg q12h. Antitussives prn Other workup for syncope including TTE. May need zio patch testing outpatient to rule out dysrhythmia. Tele while inpt Get XR of left shoulder Reviewed Neuro's note from 2009. They did not think patient had seizure at the time and diagnosed with possible cataplexy Will get EEG Consult Neuro especially with escalation of episodes per patient. Agree with plans as detailed by Anna Mcintosh PA-C I spent a total of 50 minutes coordinating, documenting and providing care for this patient excluding time spent in performance of separately billed services (2) Cough Cough type: unspecified Qualified Code(s): R05.9 - Cough, unspecified (4) Left shoulder pain Chronicity: acute Qualified Code(s): M25.512 - Pain in left shoulder
[2023-11-17] MEDS: MAGNESIUM SULFATE / D5W 1 GM/100 ML BAG IV SCH ×2 (09:27→10:35)
--- NOTE | 2023-11-17 09:30 | XRay Report ---
XR chest 1V portable HISTORY: 43 years-old Male L sided rib pain s/p fall . Left sided rib pain status post fall COMPARISON: Rib radiographs 01/01/2023 TECHNIQUE: AP view of the chest FINDINGS: Cardiomediastinal and hilar silhouettes are within normal limits. No pneumothorax, pleural effusion o r airspace consolidation. The bones appear grossly intact. IMPRESSION: No acute process. ACT 112: Negative or not required by law. The above report was generated using voice recognition software. It may contain grammatical, syntax o r spelling errors. Electronically signed by: Gurpreet Monroe M.D. 11/17/2023 9:28 AM
[2023-11-17 09:34] LABS: Appearance Urine Clear (Clear); Bilirubin Urine Negative (Negative); Blood Urine Negative (Negative); Color Urine Yellow; Glucose Urine UA Trace (Negative); Ketones Urine Negative (Negative); Leukocyte Esterase Urine Negative (Negative); Nitrite Urine Negative (Negative); Protein Urine Negative (Negative); Urobilinogen Urine Negative (Negative); pH Urine 5.5 (4.5-7.5)
[2023-11-17 09:46] LABS: Phosphorus 3.2 mg/dl (2.5-4.9)
--- NOTE | 2023-11-17 10:06 | XRay Report ---
XR shoulder LT min 2V routine HISTORY: 43 years-old Male pain s/p fall . Left shoulder pain status post fall COMPARISON: Chest radiograph of same day TECHNIQUE: 3 views of the left shoulder FINDINGS: Minimal degeneration of the AC joint. There is no acute fracture, dislocation or opaque foreign body. The imaged lung coyne appear clear. IMPRESSION: No acute fracture or dislocation. ACT 112: Negative or not required by law. The above report was generated using voice recognition software. It may contain grammatical, syntax o r spelling errors. Electronically signed by: Gurpreet Monroe M.D. 11/17/2023 10:04 AM
[2023-11-17 11:05] LABS: Adenovirus PCR Not Detected (NotDetected); Bordetella parapertussis PCR Not Detected (NotDetected); Bordetella pertussis PCR Not Detected (NotDetected); Chlamydia pneumoniae PCR Not Detected (NotDetected); Coronavirus 229E PCR Not Detected (NotDetected); Coronavirus CoV-2 (COVID19)PCR Not Detected (NotDetected); Coronavirus HKU1 PCR Not Detected (NotDetected); Coronavirus NL63 PCR Not Detected (NotDetected); Coronavirus OC43PCR Not Detected (NotDetected); Human Metapneumovirus PCR Not Detected (NotDetected); Influenza A PCR Not Detected (NotDetected); Influenza B PCR Not Detected (NotDetected); Mycoplasma pneumoniae PCR Not Detected (NotDetected); Parainfluenza Virus 1 PCR Not Detected (NotDetected); Parainfluenza Virus 2 PCR Not Detected (NotDetected); Parainfluenza Virus 3 PCR Not Detected (NotDetected); Parainfluenza Virus 4 PCR Not Detected (NotDetected); Respiratory Syncytial VirusPCR Not Detected (NotDetected); Rhinovirus/Enterovirus PCR Not Detected (NotDetected)
[2023-11-17] MEDS ORDERED: LORazepam 1 MG TAB PO PRN (11:32)
[2023-11-17] MEDS: guaiFENesin 600 MG TABCR PO SCH ×2 (12:30→20:41)
[2023-11-17] MEDS: LORATADINE 10 MG TAB PO SCH (12:30)
--- NOTE | 2023-11-17 15:34 | Ultrasound Report ---
ULTRASOUND OF THE CAROTID ARTERIES CLINICAL HISTORY: episodic LOC TECHNIQUE: Real-time, grayscale, and color Doppler sonography of the carotid arteries is performed. I mages are reviewed in the transverse and longitudinal planes. COMPARISON: None available at the time of this dictation. FINDINGS: Exam is limited by patient body habitus. The carotid arteries are patent bilaterally and demonstrate antegrade flow. There is no atherosclerotic plaque on the right and no atherosclerotic plaque on the left. Normal doppler arterial waveforms are seen throughout. Velocity measurements are listed below. Common carotid peak systolic velocity (cm/sec): RIGHT: 169 LEFT: 120 ICA peak systolic velocity (cm/sec): RIGHT: 59 LEFT: 68 ICA/CC peak systolic ratio: RIGHT: 0.35 LEFT: 0.57 Antegrade flow was shown in the vertebral arteries. The external carotid arteries are patent. IMPRESSION: 1. There is no sonographic evidence of hemodynamically significant stenosis in the right or left car otid arterial system. 2. Antegrade flow is shown in the vertebral arteries. Society of Radiologists in Ultrasound consensus guidelines: Normal: ICA PSV is <125 cm/sec and no plaque or intimal thickening is visible sonographically additional criteria include ICA/CCA PSV ratio <2.0 and ICA EDV <40 cm/sec <50% ICA stenosis: ICA PSV is <125 cm/sec and plaque or intimal thickening is visible sonographically additional criteria include ICA/CCA PSV ratio <2.0 and ICA EDV <40 cm/sec 50-69% ICA stenosis: ICA PSV is 125-230 cm/sec and plaque is visible sonographically additional criteria include ICA/CCA PSV ratio of 2.0-4.0 and ICA EDV of 40-100 cm/sec ?70% ICA stenosis but less than near occlusion: ICA PSV is >230 cm/sec and visible plaque and luminal narrowing are seen at beltran-scale and color Dopp ler ultrasound (the higher the Doppler parameters lie above the threshold of 230 cm/sec, the greater the likelihood of severe disease) additional criteria include ICA/CCA PSV ratio >4 and ICA EDV >100 cm/sec ACT 112: Negative or not required by law. Electronically signed by: Leland Talamantes M.D. 11/17/2023 3:33 PM
--- NOTE | 2023-11-17 16:33 | Electrocardiogram Report ---
Test Reason : Blood Pressure : / mmHG Vent. Rate : 078 BPM Atrial Rate : 078 BPM P-R Int : 146 ms QRS Dur : 080 ms QT Int : 362 ms P-R-T Axes : 026 048 019 degrees QTc Int : 412 ms Normal sinus rhythm Normal ECG When compared with ECG of 21-JUL-2019 19:51, No significant change was found Confirmed by Jt Archer ([id number]) on 11/17/2023 4:32:30 PM Referred By: Confirmed By:Jason Archer
[2023-11-17 17:02] LABS: BUN Creatinine Ratio 11.7 (10-20); Calcium 9.2 mg/dl (8.6-10.3); Creatinine Clr Calc Pharmacy 152.3 ml/min; Est GFR (African American) 113.8 ml/min; Est GFR (Non-African American) 98.2 ml/min; Potassium 3.8 mmol/L (3.5-5.1)
[2023-11-17] MEDS: BENZONATATE 100 MG CAPSULE PO PRN (19:09)
[2023-11-17 23:21] LABS: BUN Creatinine Ratio 14.1 (10-20); Creatinine Clr Calc Pharmacy 168.4 ml/min; Est GFR (African American) 122.8 ml/min; Potassium 3.7 mmol/L (3.5-5.1)
[2023-11-18] MEDS: BENZONATATE 100 MG CAPSULE PO PRN ×4 (03:58→22:06)
[2023-11-18] MEDS: ACETAMINOPHEN 325 MG TAB PO PRN ×4 (03:58→22:06)
[2023-11-18] MEDS ORDERED: oxyCODONE HCL IR 5 MG TAB (IMMEDIATE RELEASE) PO STA (05:33)
[2023-11-18 05:58] LABS: Basophils # (auto) 0.02 K/uL (0.00-0.20); Basophils % (auto) 0.3 %; Eosinophils % (auto) 1.3 %; Hematocrit (blood only) 40.2 % (42.0-52.0); Hemoglobin 13.8 g/dl (14.0-18.0); Immature Granulocytes # (auto) 0.06 K/uL (0.01-0.20); Immature Granulocytes % (auto) 0.8 %; Lymphocytes # (auto) 1.52 K/uL (1.20-3.40); Lymphocytes % (auto) 19.8 %; Mean Corpuscular Hemoglobin 32.4 pg (25.0-34.0); Mean Corpuscular Hgb Conc 34.3 g/dL (32.0-36.0); Mean Corpuscular Volume 94.4 fL (80.0-100.0); Mean Platelet Volume 9.9 fL (9.4-12.4); Monocytes # (auto) 0.63 K/uL (0.11-0.59); Monocytes % (auto) 8.2 %; Neutrophils # (auto) 5.33 K/uL (1.40-6.50); Neutrophils % (auto) 69.6 %; Platelet Count 201 K/uL (130-400); RDW Standard Deviation 41.7 fL (36.4-46.3); Red Blood Count 4.26 M/uL (4.70-6.10); White Blood Count 7.66 K/ul (4.8-10.8)
[2023-11-18 06:18] LABS: BUN Creatinine Ratio 12.5 (10-20); Calcium 9.3 mg/dl (8.6-10.3); Chol HDL Ratio 1.9 (0-5); Creatinine Clr Calc Pharmacy 161.2 ml/min; Est GFR (African American) 121.1 ml/min; Est GFR (Non-African American) 104.5 ml/min; Magnesium 1.9 mg/dl (1.7-2.4); Potassium 3.8 mmol/L (3.5-5.1)
--- NOTE | 2023-11-18 06:26 | Electroencephalogram ---
EEG Procedure Note Date of Service November 17, 2023 Start / End Times Start Time: 13:18 End Time: 13:38 Referring Physician Parviz Mcintosh History A 43 year old male with syncopal episode. EEG performed for evaluation of epileptiform activity. Home Medication List Medication Instructions Recorded Confirmed Type lisinopril 40 mg tablet 40 mg PO DAILY 07/21/19 11/17/23 History chlorthalidone 25 mg tablet 25 mg PO DAILY 11/17/23 11/17/23 History semaglutide 0.25 mg or 0.5 mg (2 0.5 mg subcut WK 11/17/23 11/17/23 History mg/3 mL) subcutaneous pen injector (Ozempic) Inpatient Medication List Acetaminophen (Acetaminophen 325 Mg Tab) 650 mg PO Q4H PRN PRN Reason: Pain or Fever Stop: 12/17/23 11:31 Last Admin: 11/18/23 03:58 Dose: 650 mg Documented By: LEE ANN Benzonatate (Benzonatate 100 Mg Capsule) 100 mg PO TID PRN PRN Reason: Cough Stop: 12/17/23 11:41 Last Admin: 11/18/23 03:58 Dose: 100 mg Documented By: LEE ANN Admin: 11/17/23 19:09 Dose: 100 mg Documented By: LEE ANN Guaifenesin (Guaifenesin 600 Mg Tabcr) 1,200 mg PO Q12 [facility] Stop: 12/17/23 11:31 Last Admin: 11/17/23 20:41 Dose: 1,200 mg Documented By: LEE ANN Admin: 11/17/23 12:30 Dose: 1,200 mg Documented By: BEREKET Loratadine (Loratadine 10 Mg Tab) 10 mg PO QAM [facility] Stop: 12/17/23 11:31 Last Admin: 11/17/23 12:30 Dose: 10 mg Documented By: BEREKET Discontinued Medications Sodium Chloride (Nss) 1,000 mls @ 999 mls/hr IV .Q1H1M [facility] Stop: 11/17/23 08:45 Last Infusion: 11/17/23 09:00 Dose: Infused Documented By: Admin: 11/17/23 07:55 Dose: 999 mls/hr Documented By: JOCELYN Magnesium Sulfate/Dextrose (Magnesium Sulfate / D5w) 1 gm in 100 mls @ 100 mls/hr IV Q1H [facility] Stop: 11/17/23 11:18 Last Infusion: 11/17/23 12:56 Dose: Infused Documented By: Admin: 11/17/23 10:35 Dose: 100 mls/hr Documented By: Infusion: 11/17/23 10:27 Dose: Infused Documented By: Admin: 11/17/23 09:27 Dose: 100 mls/hr Documented By: GRISEL Oxycodone HCl (Oxycodone Hcl Ir 5 Mg Tab (Immediate Release)) 5 mg PO NOW STA Stop: 11/18/23 05:34 Last Admin: 11/18/23 05:48 Dose: 5 mg Documented By: LEE ANN Description This is a 21 electrode EEG with a single channel dedicated to limited EKG. The electrodes were placed in accordance with the International 10-20 system. REPORT: At the onset of the EEG, the patient is awake. The background activity consist of 10-11 Hz, persistent, posteriorly dominant, moderate amplitude, symmetric and rhythmic activity that is reactive to eye opening. Anteriorly, it consist of a mixture of low voltage indeterminate activity and 15-25 Hz, persistent, low amplitude, symmetric and rhythmic activity. Stepwise intermittent photic stimulation (1-21 Hz) does not induce any abnormalities. Drowsiness is characterized by low amplitude mixed frequency activity, roving eye movements, and decreased eye blinking and muscle artifact. Interpretation IMPRESSION: This is a normal awake and drowsy routine EEG. There is no evidence of focal slowing or epileptiform activity.
[2023-11-18 08:02] LABS: Estimated Average Glucose 126 mg/dl
[2023-11-18] MEDS ORDERED: ENOXAPARIN INJ 40 MG/0.4 ML SYR SQ SCH (09:00)
[2023-11-18] MEDS ORDERED: amLODIPine BESYLATE 5 MG TAB PO SCH (09:00)
--- NOTE | 2023-11-18 09:02 | Neurology Consultation ---
Date of Consultation November 18, 2023 Assessment & Plan (1) Syncope: Plan 43 y/o male with history of HTN, depression, obesity, and SHIMON that presents following multiple episodes of loss of consciousness, suspected to represent post tussive syncope. Additionally, the clinical history of prior episodes which were previously suspected to be cataplexy is concerning for syncope. Overall, history is less suggestive of seizure. EEG with no epileptiform discharges. Would proceed with imaging, syncope work-up and symptomatic management of cough. 1. MRI brain and c spine w/wo 2. MRA head 3. TTE 4. Seizure precuations 5. Zio patch on discharge 6. Symptomatic management of cough 7. Outpatient Sleep Medicine referral 8. No driving Telehealth Consultation Telehealth Information Telehealth Information: I performed this visit using a real-time telehealth connection between my location and the patients location ([facility]). After connecting through interactive tele-video, patient was identified by name and date of and/or wristband check.Patient (or authorized healthcare accounts payable representative) was informed that this was a telemedicine visit and it was being conducted confidentially over secure lines. My office door was closed and no one else was present in the room with me.Patient (or authorized healthcare accounts payable representative) provided consent to proceed with the visit, expressed an understanding of privacy and security of the telemedicine visit, and gave permission to have a hospital accounts payable representative in the room in order to assist with the visit and to conduct portions of the visit, as needed. I informed the patient (or authorized healthcare accounts payable representative) that I reviewed their record and presented the opportunity for them to ask any questions regarding the visit today. The patient agreed to participate. History of Present Illness Reason for Consultation: worsening cataplexy, seizures? Requesting Physician: Patricia Mcintosh PA-C Attending Physician: Umer Graves MD History of Present Illness 43 y/o male that presented with possible syncope. He states that on the Friday before , he began having runny nose and cough. He states that he has had two courses of antibiotics since that time but the cough has persisted. Then three days ago, his cough started to get worse. He started having episodes where he was coughing and then he he would feel tremulous and then wake up on the floor. He believes that he lost consciousness for seconds. Initially, he had no incontinence but after one day he began to have urinary incontinence. He denies ever having tongue biting or any confusion or lethargy following the event. On the first two days, he had three to four episodes and then one episode on the day of presentation. On last night, he states that he had a few occasions where he had coughing which was followed by tremulousness and he felt as if he was going to pass out but did not. He states that his cough has improved this morning but was more significant on last night. In 2007, he began having episodes he was told that he could be cataplexy. He recalls an initial episode where he was laughing and then he woke up with his mother asking if he was okay. He reports that his mother noticed shaking of extremities. He is unsure of how long this lasted but believes that it was brief. He did bite his tongue and denies any incontinence with this event. He does not believe he had any confusion following the event. He did not recall falling to the ground or shaking. Some months later, he was playing a card game laughing and then the next things he knew he was on the ground. He does not recall any confusion or lethargy following this event. He then saw a doctor who told him this was suspected to be cataplexy. He denies any issue with daytime sleepiness or maintaining alertness during the day. Two years, he saw a sleep physician due to witnessed apneas by his girlfriend and a home study was planned but not completed. In his 20s, he states that he was diagnosed with mild SHIMON but told that he did not need treatment. Allergies Allergy/AdvReac Type Severity Reaction Status Date / Time No Known Allergies Allergy Unverified 07/21/19 22:56 Home Medications Medication Instructions Recorded Confirmed Type lisinopril 40 mg tablet 40 mg PO DAILY 07/21/19 11/17/23 History chlorthalidone 25 mg tablet 25 mg PO DAILY 11/17/23 11/17/23 History semaglutide 0.25 mg or 0.5 mg (2 0.5 mg subcut WK 11/17/23 11/17/23 History mg/3 mL) subcutaneous pen injector (Ozempic) Patient History Medical History Anxiety Hepatic steatosis Essential hypertension Cataplexy Lymphedema of both lower extremities Syndrome X, metabolic Major depression Morbid obesity Surgical History Hx of vasectomy Family History Grandmother Myocardial infarction Other Stroke Social History Smoking Status: Former smoker Tobacco Type: Smokeless Tobacco (Dip or Chew) Second Hand Exposure: Yes; Do You Dip or Chew Tobacco: Yes; Hx Alcohol Use: Yes Alcohol type: beer Alcohol type Comment: 6 pack/day Hx Substance Use: No Preferred Language: Telugu Communication Ability: Effective Hotel Associate Required: No Beliefs That Will Affect Care: None Current Living Situation: Alone Other Information That Helps Us Care for You: No Feels Safe at Home: Yes Safety Concerns: Feels Safe At This Time Physical Exam AAO X 3 No aphasia or dysarthria VFF EOMI, no nystagmus Facial sensations intact No facial asymmetry Tongue protrudes midline Motor: Moves all four extremities antigravity equally and without drift. Sensation: Intact to light touch throughout Cerebellar: FTN intact Results & Data Vital Signs (Past 12 Hours) Vital Signs Temp Pulse Pulse Resp BP Pulse Ox O2 Del Method 11/18/23 07:15 36.8 C 71 20 119/75 94 Room Air 11/18/23 03:00 81 12 95 11/18/23 02:42 36.6 C 81 20 119/73 96 Nasal CPAP 11/17/23 22:59 36.8 C 83 18 119/70 96 Room Air 11/17/23 22:57 76 17 95 11/17/23 22:00 84 FiO2 11/18/23 07:15 11/18/23 03:00 21 11/18/23 02:42 11/17/23 22:59 11/17/23 22:57 21 11/17/23 22:00 Laboratory Results WBC 7.66, HGB 13.8, HCT 40.2, Plts 201, NA 126, Potassium 3.8, Chloride 90, BUN 11, Creatinine 0.88, Glucose 120, A!C 6.0, Calcium 9.3, Magnesium 1.9, tr iglyceride 60, LDL 51, HDL 74, urine trace glucose, negative nitrite, negative leukocyte esterase, urine osmolality 283, Urine sodium 33, ethyl alcohol < [address] head:1. No acute intracranial abnormality or calvarial fracture. 2. Large right mastoid effusion. Carotid doppler: 1. There is no sonographic evidence of hemodynamically significant stenosis in the right or left carotid arterial system. 2. Antegrade flow is shown in the vertebral arteries. EEG: This is a normal awake and drowsy routine EEG. There is no evidence of focal slowing or epileptiform activity.
--- NOTE | 2023-11-18 09:46 | Hospitalist Progress Note ---
Date of Service November 18, 2023 Assessment & Plan (1) Acute hyponatremia: Plan: This is a 43 y/o male with metabolic syndrome X, HTN, cataplexy, morbid obesity, EtOH abuse, depression, anxiety, chronic LE lymphedema, and newly diagnosed SHIMON who presents to the ED today with increasing frequency of "episodes" of cataplexy over the last few days. Pt was seen by neurology several years ago when he was diagnosed with cataplexy but has not followed with them recently. These episodes have previously been triggered by laughing or coughing, current symptoms seem to be triggered by coughing. Work-up in the ED also reviewed new hyponatremia. Review of outpatient labs shows last sodium in 2021 was 137. - - Hold diuretic in view of hyponatremia - Serial BMP Q6 hrs - Check serum osmolality, urine osmolality, urine sodium - Consult nephrology for recommendations - do not take any thiazide diuretic (hctz or chlorthalidone) (2) Cough: Plan: Unclear etiology. Pt is on lisinopril but has been on this for a long time with most recent dose adjustment apparently about nine months ago - respiratory panel - negative - CXR negative - Hold lisinopril for now although low suspicion of this as a the cause - Guaifenesin and loratadine scheduled, prn anti-tussives - continues to have a cough - added guaifensin w/ codein instead of regular guaifenesin - s/p 2 courses of antibiotics. also reports L sided rib pain from fall, will obtain CT chest to evaluate (3) Hypomagnesemia: Plan: 1.5 on admission Replete and monitor (4) Left shoulder pain: Plan: s/p fall - check left shoulder x-ray - negative for any fx (5) Cataplexy: Plan: Increasing frequency of episodes of LOC - Check EEG to r/o seizure, especially in view of new urinary incontinence not associated with prior episodes EEG - negative for eplipt. activity - Echo -LV wall motion is normal. LVEF 65 to 70%. Valvular structures were not well-seen however there is no significant stenosis or regurg on Doppler interrogation. Carotid duplex - 1. There is no sonographic evidence of hemodynamically significant stenosis in the right or left carotid arterial system. 2. Antegrade flow is shown in the vertebral arteries. Neurology consulted - 1. MRI brain and c spine w/wo 2. MRA head 3. TTE 4. Seizure precuations 5. Zio patch on discharge 6. Symptomatic management of cough 7. Outpatient Sleep Medicine referral 8. No driving (6) Lymphedema of both lower extremities: Plan: Chronic, stable (7) Essential hypertension: Plan: Avoid use of ACEI with ongoing cough, although may not be related. When evaluated in the ED, BP was borderline 90s/60s This AM BP 119/75, cont. to monitor BP (8) Syndrome X, metabolic: Plan: Pt is to be on Ozempic as outpatient but not currently taking. Encouraged f/u with PCP to discuss this further. - current A1c 6.0% - lipid panel in the AM - LDL 51 (9) Alcohol use: Plan: Drinks six pack of beer daily - At-risk CIWA prn Ativan protocol Plan Code Status: Full code DVT Prophylaxis: Lovenox NOTE: Needs appointment with sleep medicine at discharge to f/u on CPAP. Admission and Anticipated Discharge Date Admission Date: November 17, 2023 Subjective Pt seen in follow up of hyponatremia, syncope /? cataplexy Sitting up in bed in NAD Reports severe coughing episodes and falls, reports left sided rib pain s/p 2 courses of antibiotics. lisinopril stopped by admitting team will add guaifensin with codein. will get CT chest Neurology consulted and discussed with Nephrology also consulted for hyponatremia Review of Systems Review of Systems: All systems reviewed & are unremarkable except as noted in Subjective Physical Exam Physical Exam: General: Morbidly obese young M in NAD Eyes: PERRL, conjunctivae normal, not pale, anicteric sclerae, EOM intact bilaterally ENMT: External ear and nose normal, oropharynx normal Neck: Normal visual inspection, Thick neck Respiratory: Normal respiratory effort, no respiratory distress, breath sounds diminished. On room air Cardiovascular: RRR S1 S2 Chest (Breasts): Normal inspection of chest. No bruises noted Gastrointestinal (Abdomen): Abdomen is not distended, soft, non-tender to pal pation, no guarding + obese, normal bowel sounds Musculoskeletal: + Some tenderness over left shoulder. moves extremities Neurologic: Alert and oriented x 3, No focal weakness, sensation grossly int act, speech fluent, answers appropriately, moves extremities Psychiatric: Euthymic affect Results & Data Results & Data Vital Signs (Past 12 Hours) Vital Signs Temp Pulse Pulse Resp BP Pulse Ox O2 Del Method 11/18/23 07:15 36.8 C 71 20 119/75 94 Room Air 11/18/23 03:00 81 12 95 11/18/23 02:42 36.6 C 81 20 119/73 96 Nasal CPAP 11/17/23 22:59 36.8 C 83 18 119/70 96 Room Air 11/17/23 22:57 76 17 95 11/17/23 22:00 84 FiO2 11/18/23 07:15 11/18/23 03:00 21 11/18/23 02:42 11/17/23 22:59 11/17/23 22:57 21 11/17/23 22:00 Laboratory Results 11/18/23 11/17/23 11/17/23 Range/Units 05:20 22:46 16:22 WBC 7.66 (4.8-10.8) K/ul RBC 4.26 L (4.70-6.10) M/uL Hgb 13.8 L (14.0-18.0) g/dl Hct 40.2 L (42.0-52.0) % MCV 94.4 (80.0-100.0) fL MCH 32.4 (25.0-34.0) pg MCHC 34.3 (32.0-36.0) g/dL RDW Std Deviation 41.7 (36.4-46.3) fL RDW Coeff of Nirmal 12.0 (11.5-14.5) % Plt Count 201 (130-400) K/uL MPV 9.9 (9.4-12.4) fL Immature Gran % (Auto) 0.8 % Neut % (Auto) 69.6 % Lymph % (Auto) 19.8 % [facility] % (Auto) 8.2 % Eos % (Auto) 1.3 % Baso % (Auto) 0.3 % Neut # (Auto) 5.33 (1.40-6.50) K/uL Lymph # (Auto) 1.52 (1.20-3.40) K/uL [facility] # (Auto) 0.63 H (0.11-0.59) K/uL Eos # (Auto) 0.10 (0.00-0.50) K/uL Baso # (Auto) 0.02 (0.00-0.20) K/uL Immature Gran # (Auto) 0.06 (0.01-0.20) K/uL Sodium 126 L 126 L 125 L (136-145) mmol/L Potassium 3.8 3.7 3.8 (3.5-5.1) mmol/L Chloride 90 L 90 L 88 L (98-107) mmol/L Carbon Dioxide 29 28 31 (21-32) mmol/L Anion Gap 7 8 6 (3-11) BUN 11 12 11 (6-23) mg/dl Creatinine 0.88 0.85 0.94 (0.6-1.4) mg/dl Est Cr Clr Drug Dosing 161.2 168.4 152.3 ml/min Est GFR ( Amer) 121.1 122.8 113.8 ml/min Est GFR (Non-Af Amer) 104.5 106.0 98.2 ml/min BUN/Creatinine Ratio 12.5 14.1 11.7 (10-20) Glucose 120 H 130 H 113 H (70-99(Fasting)) mg/dl Estimat Average Glucose 126 mg/dl Hemoglobin A1c 6.0 H (4.5-5.6) % Calcium 9.3 9.0 9.2 (8.6-10.3) mg/dl Phosphorus (2.5-4.9) mg/dl Magnesium 1.9 (1.7-2.4) mg/dl Triglycerides 60 (0-150) mg/dl Cholesterol 137 (0-200) mg/dl LDL Cholesterol, Calc 51 mg/dl VLDL Cholesterol, Calc 12 (0-30) mg/dl HDL Cholesterol 74 mg/dl Cholesterol/HDL Ratio 1.9 (0-5) Urine Osmolality (500-800) mOsm/kg Ur Random Sodium mmol/L Ethyl Alcohol mg/dL (<10.0) mg/dl Adenovirus (PCR) (NotDetected) B. pertussis DNA (PCR) (NotDetected) B.parapertussis DNA PCR (NotDetected) C. pneumoniae DNA (PCR) (NotDetected) Coronavirus OC43 (PCR) (NotDetected) Coronavirus HKU1 (PCR) (NotDetected) Coronavirus 229E (PCR) (NotDetected) SARS-CoV-2 (PCR) (NotDetected) Coronavirus NL63 (PCR) (NotDetected) Human Metapneumovir PCR (NotDetected) Influenza Type A (PCR) (NotDetected) Influenza Type B (PCR) (NotDetected) M. pneumoniae (PCR) (NotDetected) Parainfluenza 1 (PCR) (NotDetected) Parainfluenza 2 (PCR) (NotDetected) Parainfluenza 3 (PCR) (NotDetected) Parainfluenza 4 (PCR) (NotDetected) RSV (PCR) (NotDetected) Entero/Rhino (PCR) (NotDetected) 11/17/23 11/17/23 11/17/23 Range/Units 10:00 09:16 09:06 WBC (4.8-10.8) K/ul RBC (4.70-6.10) M/uL Hgb (14.0-18.0) g/dl Hct (42.0-52.0) % MCV (80.0-100.0) fL MCH (25.0-34.0) pg MCHC (32.0-36.0) g/dL RDW Std Deviation (36.4-46.3) fL RDW Coeff of Nirmal (11.5-14.5) % Plt Count (130-400) K/uL MPV (9.4-12.4) fL Immature Gran % (Auto) % Neut % (Auto) % Lymph % (Auto) % [facility] % (Auto) % Eos % (Auto) % Baso % (Auto) % Neut # (Auto) (1.40-6.50) K/uL Lymph # (Auto) (1.20-3.40) K/uL [facility] # (Auto) (0.11-0.59) K/uL Eos # (Auto) (0.00-0.50) K/uL Baso # (Auto) (0.00-0.20) K/uL Immature Gran # (Auto) (0.01-0.20) K/uL Sodium (136-145) mmol/L Potassium (3.5-5.1) mmol/L Chloride (98-107) mmol/L Carbon Dioxide (21-32) mmol/L Anion Gap (3-11) BUN (6-23) mg/dl Creatinine (0.6-1.4) mg/dl Est Cr Clr Drug Dosing ml/min Est GFR ( Amer) ml/min Est GFR (Non-Af Amer) ml/min BUN/Creatinine Ratio (10-20) Glucose (70-99(Fasting)) mg/dl Estimat Average Glucose mg/dl Hemoglobin A1c (4.5-5.6) % Calcium (8.6-10.3) mg/dl Phosphorus (2.5-4.9) mg/dl Magnesium (1.7-2.4) mg/dl Triglycerides (0-150) mg/dl Cholesterol (0-200) mg/dl LDL Cholesterol, Calc mg/dl VLDL Cholesterol, Calc (0-30) mg/dl HDL Cholesterol mg/dl Cholesterol/HDL Ratio (0-5) Urine Osmolality 283 L (500-800) mOsm/kg Ur Random Sodium 33 mmol/L Ethyl Alcohol mg/dL < 10.0 (<10.0) mg/dl Adenovirus (PCR) Not Detected (NotDetected) B. pertussis DNA (PCR) Not Detected (NotDetected) B.parapertussis DNA PCR Not Detected (NotDetected) C. pneumoniae DNA (PCR) Not Detected (NotDetected) Coronavirus OC43 (PCR) Not Detected (NotDetected) Coronavirus HKU1 (PCR) Not Detected (NotDetected) Coronavirus 229E (PCR) Not Detected (NotDetected) SARS-CoV-2 (PCR) Not Detected (NotDetected) Coronavirus NL63 (PCR) Not Detected (NotDetected) Human Metapneumovir PCR Not Detected (NotDetected) Influenza Type A (PCR) Not Detected (NotDetected) Influenza Type B (PCR) Not Detected (NotDetected) M. pneumoniae (PCR) Not Detected (NotDetected) Parainfluenza 1 (PCR) Not Detected (NotDetected) Parainfluenza 2 (PCR) Not Detected (NotDetected) Parainfluenza 3 (PCR) Not Detected (NotDetected) Parainfluenza 4 (PCR) Not Detected (NotDetected) RSV (PCR) Not Detected (NotDetected) Entero/Rhino (PCR) Not Detected (NotDetected) 11/17/23 Range/Units 07:51 WBC (4.8-10.8) K/ul RBC (4.70-6.10) M/uL Hgb (14.0-18.0) g/dl Hct (42.0-52.0) % MCV (80.0-100.0) fL MCH (25.0-34.0) pg MCHC (32.0-36.0) g/dL RDW Std Deviation (36.4-46.3) fL RDW Coeff of Nirmal (11.5-14.5) % Plt Count (130-400) K/uL MPV (9.4-12.4) fL Immature Gran % (Auto) % Neut % (Auto) % Lymph % (Auto) % [facility] % (Auto) % Eos % (Auto) % Baso % (Auto) % Neut # (Auto) (1.40-6.50) K/uL Lymph # (Auto) (1.20-3.40) K/uL [facility] # (Auto) (0.11-0.59) K/uL Eos # (Auto) (0.00-0.50) K/uL Baso # (Auto) (0.00-0.20) K/uL Immature Gran # (Auto) (0.01-0.20) K/uL Sodium (136-145) mmol/L Potassium (3.5-5.1) mmol/L Chloride (98-107) mmol/L Carbon Dioxide (21-32) mmol/L Anion Gap (3-11) BUN (6-23) mg/dl Creatinine (0.6-1.4) mg/dl Est Cr Clr Drug Dosing ml/min Est GFR ( Amer) ml/min Est GFR (Non-Af Amer) ml/min BUN/Creatinine Ratio (10-20) Glucose (70-99(Fasting)) mg/dl Estimat Average Glucose mg/dl Hemoglobin A1c (4.5-5.6) % Calcium (8.6-10.3) mg/dl Phosphorus 3.2 (2.5-4.9) mg/dl Magnesium (1.7-2.4) mg/dl Triglycerides (0-150) mg/dl Cholesterol (0-200) mg/dl LDL Cholesterol, Calc mg/dl VLDL Cholesterol, Calc (0-30) mg/dl HDL Cholesterol mg/dl Cholesterol/HDL Ratio (0-5) Urine Osmolality (500-800) mOsm/kg Ur Random Sodium mmol/L Ethyl Alcohol mg/dL (<10.0) mg/dl Adenovirus (PCR) (NotDetected) B. pertussis DNA (PCR) (NotDetected) B.parapertussis DNA PCR (NotDetected) C. pneumoniae DNA (PCR) (NotDetected) Coronavirus OC43 (PCR) (NotDetected) Coronavirus HKU1 (PCR) (NotDetected) Coronavirus 229E (PCR) (NotDetected) SARS-CoV-2 (PCR) (NotDetected) Coronavirus NL63 (PCR) (NotDetected) Human Metapneumovir PCR (NotDetected) Influenza Type A (PCR) (NotDetected) Influenza Type B (PCR) (NotDetected) M. pneumoniae (PCR) (NotDetected) Parainfluenza 1 (PCR) (NotDetected) Parainfluenza 2 (PCR) (NotDetected) Parainfluenza 3 (PCR) (NotDetected) Parainfluenza 4 (PCR) (NotDetected) RSV (PCR) (NotDetected) Entero/Rhino (PCR) (NotDetected) Medications Administered Current Inpatient Medications Acetaminophen (Acetaminophen 325 Mg Tab) 650 mg PO Q4H PRN PRN Reason: Pain or Fever Stop: 12/17/23 11:31 Last Admin: 11/18/23 03:58 Dose: 650 mg Amlodipine Besylate (Amlodipine Besylate 5 Mg Tab) [facility] Stop: 12/18/23 08:59 Last Admin: 11/18/23 09:36 Dose: Not Given Benzonatate (Benzonatate 100 Mg Capsule) 100 mg PO TID PRN PRN Reason: Cough Stop: 12/17/23 11:41 Last Admin: 11/18/23 03:58 Dose: 100 mg Enoxaparin Sodium (Enoxaparin Inj 40 Mg/0.4 Ml Syr) 40 [facility] [place] Stop: 12/18/23 08:59 Folic Acid (Folic Acid 1 Mg Tab) 1 mg PO QAM [facility] Stop: 12/18/23 08:59 Guaifenesin (Guaifenesin 600 Mg Tabcr) 1,200 mg PO Q12 [facility] Stop: 12/17/23 11:31 Last Admin: 11/17/23 20:41 Dose: 1,200 mg Loratadine (Loratadine 10 Mg Tab) 10 mg PO QAM [facility] Stop: 12/17/23 11:31 Last Admin: 11/17/23 12:30 Dose: 10 mg Lorazepam (Lorazepam 1 Mg Tab) 1 mg PO ONE PRN; Protocol PRN Reason: EtoH Withdrawal AWSS 6,7,8,9,10 Thiamine HCl (Thiamine Hcl 100 Mg Tab) 100 mg PO [facility] Stop: 12/18/23 08:59 (2) Cough Cough type: unspecified Qualified Code(s): R05.9 - Cough, unspecified (4) Left shoulder pain Chronicity: acute Qualified Code(s): M25.512 - Pain in left shoulder
--- NOTE | 2023-11-18 10:13 | Nephrology Consultation ---
Date of Consultation November 18, 2023 Assessment & Plan (1) Acute hyponatremia: Sec to combination of Daily heavy beer intake coupled with use of Chlorthalidone. his previous sodium was 137 in December 2021 which was before he was put on hydrochlorothiazide or chlorthalidone. yesterday's a.m. blood work is the 1st time he has had a BMP done since being on thiazide. so it is hard to tell the exact etiology but regardless we can not use thiazide ever again. na rising nicely and is now 126 from 120. good rate of correction. Continue current mX --hold Chlorthalidone and never use thiazide diuretics as an outpatient also. if he needs any diuretics he can be on loop diuretics No need of Aggressive fluid limit. Current fluid intake seems reasonable. (2) Hypomagnesemia: sec to alcohol and meds. Continue replacement (3) Cataplexy: As per neurology and primary team History of Present Illness Reason for Consultation: Hyponatremia Attending Physician: Umer Graves MD History of Present Illness 43/ Admitted Yesterday with a serum sodium of 120. Came to hospital because of increasing frequency of "episodes" of cataplexy over the last few days. has been seen by neurology for this yesterday. had EEG and Also ECHO yesterday. He was drinking lot of beers every day at home. previous Na 137 on which was before hydrochlorothiazide or chlorthalidone. Started on HCTZ and changed to Chlorthalidone January 2023. I did not see any BMP done since the start of the thiazides. this AM na is upto 126. He is eating. Overall otherwise feels fine. was on chlorthalidone at home. On hold now. ROs---12 Systems reviewed and otherwise negative. See HPI Physical Exam Physical Exam: General: Morbid obesity. No acute distress. Bruise on left forehead Eyes: PERRL, conjunctivae normal, not pale, anicteric sclerae, EOM intact bilaterally ENMT: External ear and nose normal, oropharynx normal Neck: Normal visual inspection, Thick neck Respiratory: Normal respiratory effort, no respiratory distress, distant breath sounds likely due to body habitus. On room air Cardiovascular: RRR S1 S2 Chest (Breasts): Normal inspection of chest. No bruises noted Gastrointestinal (Abdomen): Abdomen is not distended, soft, non-tender to palpation, no guarding, no palpable hepatosplenomegaly, normal bowel sounds Musculoskeletal: No pedal edema, Some tenderness over left shoulder. Normal power Neurologic: Alert and oriented x 3, No focal weakness, sensation grossly intact Psychiatric: Euthymic affect Allergies Allergy/AdvReac Type Severity Reaction Status Date / Time No Known Allergies Allergy Unverified 07/21/19 22:56 Home Medications Medication Instructions Recorded Confirmed Type lisinopril 40 mg tablet 40 mg PO DAILY 07/21/19 11/17/23 History chlorthalidone 25 mg tablet 25 mg PO DAILY 11/17/23 11/17/23 History semaglutide 0.25 mg or 0.5 mg (2 0.5 mg subcut WK 11/17/23 11/17/23 History mg/3 mL) subcutaneous pen injector (Gangkr) Patient History Medical History Anxiety Hepatic steatosis Essential hypertension Cataplexy Lymphedema of both lower extremities Syndrome X, metabolic Major depression Morbid obesity Surgical History Hx of vasectomy Family History Grandmother Myocardial infarction Other Stroke Social History Smoking Status: Former smoker Tobacco Type: Smokeless Tobacco (Dip or Chew) Second Hand Exposure: Yes; Do You Dip or Chew Tobacco: Yes; Hx Alcohol Use: Yes Alcohol type: beer Alcohol type Comment: 6 pack/day Hx Substance Use: No Preferred Language: Irish Communication Ability: Effective Vault Clerk Required: No Beliefs That Will Affect Care: None Current Living Situation: Alone Other Information That Helps Us Care for You: No Feels Safe at Home: Yes Safety Concerns: Feels Safe At This Time Assistive Devices: None Results & Data Vital Signs (Past 12 Hours) Vital Signs Temp Pulse Pulse Resp BP Pulse Ox O2 Del Method 11/18/23 07:15 36.8 C 71 20 119/75 94 Room Air 11/18/23 03:00 81 12 95 11/18/23 02:42 36.6 C 81 20 119/73 96 Nasal CPAP 11/17/23 22:59 36.8 C 83 18 119/70 96 Room Air 11/17/23 22:57 76 17 95 FiO2 11/18/23 07:15 11/18/23 03:00 21 11/18/23 02:42 11/17/23 22:59 11/17/23 22:57 21
[2023-11-18] MEDS: FOLIC ACID 1 MG TAB PO SCH (10:21)
[2023-11-18] MEDS: guaiFENesin 600 MG TABCR PO SCH (10:21)
[2023-11-18] MEDS: THIAMINE HCL 100 MG TAB PO SCH (10:21)
[2023-11-18] MEDS: LORATADINE 10 MG TAB PO SCH (10:22)
[2023-11-18 11:08] LABS: Calcium 9.3 mg/dl (8.6-10.3); Potassium 3.9 mmol/L (3.5-5.1)
[2023-11-18 11:14] LABS: BUN Creatinine Ratio 10.9 (10-20); Creatinine Clr Calc Pharmacy 128.9 ml/min; Est GFR (African American) 94.1 ml/min; Est GFR (Non-African American) 81.2 ml/min
--- NOTE | 2023-11-18 16:45 | CT Scan Report ---
CT chest diagnostic wo con CLINICAL HISTORY: persistent cough, syncope TECHNIQUE: Multidetector row helical CT of the chest was performed. Coronal and sagittal reformations were obtained. Automated dose lowering techniques and/or adjustment according to patient size were u tilized for this exam. CT DOSE: 955.93 mGy.cm Comparison: Comparison is made to CT chest 07/21/2019 FINDINGS: Lungs and pleura: There is atelectasis of the left lower lobe with trace pleural effusion. No erma c onsolidation is seen. There is interval stability of multiple pulmonary nodules including a 3 mm nodu le in the left lower lobe (series 4 image 225) and multiple pleural-based nodules (images 136 140). A parenchymal lymph node in the right middle lobe is unchanged (image 169). Heart and pericardium: Heart size is normal. No pericardial effusion. Vessels: Unremarkable. Mediastinum and julio c: Unremarkable. Chest wall and lower neck: Unremarkable. Abdomen: Hepatic steatosis is noted. A splenule is incidentally seen. Bones: Degenerative changes in the thoracic spine. Wedge deformity of T8 is unchanged. IMPRESSION: 1. No evidence of consolidation. There is atelectasis in the left lower lobe with trace pleural effu behzad. 2. Hepatic steatosis. 3. Small pulmonary nodules as above. ACT 112: Negative or not required by law. Electronically signed by: Leland Talamantes M.D. 11/18/2023 4:43 PM
--- NOTE | 2023-11-19 00:35 | Magnetic Resonance Report ---
Exam(s): MRA HEAD Without Contrast EXAM: MR Angiography Head Without Intravenous Contrast CLINICAL HISTORY: Reason for exam: ? new seizure, syncope. TECHNIQUE: Magnetic resonance angiography images of the head without intravenous contrast. COMPARISON: No relevant prior studies available. FINDINGS: Right internal carotid artery: No acute findings. Intracranial segment is patent with no significant stenosis. 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 Right anterior cerebral artery: Unremarkable. No occlusion or significant stenosis. No aneurysm. Right middle cerebral artery: Unremarkable. No occlusion or significant stenosis. No aneurysm. Right posterior cerebral artery: Unremarkable. No occlusion or significant stenosis. No aneurysm. Right vertebral artery: Unremarkable as visualized. Left internal carotid artery: No acute findings. Intracranial segment is patent with no significant stenosis. No aneurysm. Left anterior cerebral artery: Unremarkable. No occlusion or significant stenosis. No aneurysm. Left middle cerebral artery: Unremarkable. No occlusion or significant stenosis. No aneurysm. Left posterior cerebral artery: Unremarkable. No occlusion or significant stenosis. No aneurysm. Left vertebral artery: Unremarkable as visualized. Basilar artery: Unremarkable. No occlusion or significant stenosis. No aneurysm. 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 Otherwise, negative MRI of the brain. Electronically signed by: Shirlene Headley MD 11/19/23 00:34 AM
[2023-11-19] MEDS ORDERED: GADOBUTROL 65ML VIAL IV ONE (00:46)
--- NOTE | 2023-11-19 01:53 | Magnetic Resonance Report ---
Exam(s): MRI HEAD W/WO Contrast IV Amt: 14cc gadavist EXAM: MR Head Without and With Intravenous Contrast CLINICAL HISTORY: Reason for exam: ? new seizure, syncope. TECHNIQUE: Magnetic resonance images of the head/brain without and with intravenous contrast in multiple planes. CONTRAST: Patient received 14cc gadavist of IV contrast COMPARISON: Comparison made to prior head CT from November 17, 2023. FINDINGS: Brain: Unremarkable. No mass. No hemorrhage. No acute infarct. The flow voids of the base of the brain are intact. No evidence of abnormal enhancement. The dural venous sinuses are patent. Ventricles: Unremarkable. No ventriculomegaly. Bones/joints: Unremarkable. No acute fracture. Sinuses: Chronic maxillary and ethmoid sinusitis. No acute sinusitis. Mastoid air cells: Right mastoid and middle ear effusion. Orbits: Unremarkable as visualized. IMPRESSION: No evidence of acute intracranial pathology. Electronically signed by: Shirlene Headley MD 11/19/23 01:53 AM
--- NOTE | 2023-11-19 02:17 | Magnetic Resonance Report ---
Exam(s): MRI C SPINE EXAM: MR Cervical Spine Without Intravenous Contrast CLINICAL HISTORY: Reason for exam: ? new seizure. TECHNIQUE: Magnetic resonance images of the cervical spine without intravenous contrast in multiple planes. COMPARISON: No relevant prior studies available. FINDINGS: Vertebrae: There are 7 cervical type vertebral bodies with a modular curved to left and mild cervical kyphosis. There is normal vertebral body height and alignment. The bone marrow signal is heterogeneous with reactive endplate changes. There is a tiny dorsal epidural hematoma extending from C2-3 through C4-5. No acute fracture. Spinal cord: The cord is normal size, shape and signal characteristics. Normal enhancement. Soft tissues: The cervical flow voids are intact. DISCS/SPINAL CANAL/NEURAL FORAMINA: C2-C3: The intervertebral disc is normal. There is minimal facet arthropathy with mild synovitis. C3-C4: There is mild disc degeneration with annular disc bulge flattening the ventral thecal sac. There is minimal facet arthropathy with mild synovitis. C4-C5: Moderate disc degeneration with annular disc bulging asymmetric to the right flattening the ventral thecal sac causing a severe spinal canal stenosis with AP diameter measuring 7.7 mm in diameter. There is uncovertebral joint arthropathy with disc extending to the neural foramina causing mild bilateral stenosis without evidence of nerve impingement. There is minimal to mild facet arthropathy with mild synovitis C5-C6: Moderate disc degeneration with annular disc bulge flatten the ventral thecal sac and causing a moderate spinal canal stenosis with AP diameter measuring 8 mm with uncovertebral joint arthropathy with this extending to the left neuroforamen causing a moderately severe left stenosis with impingement on the left C6 nerve root. There is mild facet arthropathy with mild synovitis. C6-C7: Moderate spinal canal stenosis with annular disc bulges imaged to the right flank. Sac. There is uncovertebral arthropathies in place extending to the right neural foramen causing moderate stenosis with mild impingement on the right C7 nerve root. There is mild facet arthropathy with mild synovitis. C7-T1: There is mild disc degeneration with annular disc bulge flattening the ventral sac. There is mild facet arthropathy with mild synovitis. IMPRESSION: 1. There is a tiny dorsal epidural hematoma extending from C2-3 through C4-5. 2. Moderate disc degeneration at C4-5, C5-6 and C6-7 with mild disc degeneration at C3-4 and C7-T1 with annular disc bulging flatten the ventral thecal sac. 3. There is a severe spinal canal stenosis at C4-5 and moderate stenosis at C5-6. 4. There is mild bilateral C4-5, moderately severe left C5-6, and moderate right C6-7 neural foraminal stenosis with impingement of the left C6 and right C7 nerve roots. 5. There is minimal to mild facet arthropathy with mild synovitis. 6. No evidence of fracture, infection, tumor or myelopathy. Communications: Verify Receipt Electronically signed by: Shirlene Headley MD 11/19/23 02:16 AM
[2023-11-19] MEDS: ACETAMINOPHEN 325 MG TAB PO PRN ×3 (02:48→20:59)
[2023-11-19] MEDS ORDERED: COUGH DROP (SUGAR FREE) LOZ 24 LOZ/1 BOX BUCCAL PRN (03:16)
[2023-11-19] MEDS: BENZONATATE 100 MG CAPSULE PO PRN ×2 (03:50→20:07)
[2023-11-19 07:55] LABS: Hematocrit (blood only) 39.2 % (42.0-52.0); Hemoglobin 13.4 g/dl (14.0-18.0); Mean Corpuscular Hemoglobin 32.5 pg (25.0-34.0); Mean Corpuscular Hgb Conc 34.2 g/dL (32.0-36.0); Mean Corpuscular Volume 95.1 fL (80.0-100.0); Mean Platelet Volume 9.5 fL (9.4-12.4); Platelet Count 196 K/uL (130-400); RDW Coefficient of Variation 12.1 % (11.5-14.5); RDW Standard Deviation 42.3 fL (36.4-46.3); Red Blood Count 4.12 M/uL (4.70-6.10); White Blood Count 7.76 K/ul (4.8-10.8)
[2023-11-19] MEDS: LORATADINE 10 MG TAB PO SCH (07:58)
[2023-11-19] MEDS: FOLIC ACID 1 MG TAB PO SCH (07:58)
[2023-11-19] MEDS: THIAMINE HCL 100 MG TAB PO SCH (07:58)
[2023-11-19 08:49] LABS: Calcium 9.1 mg/dl (8.6-10.3); Magnesium 1.8 mg/dl (1.7-2.4)
[2023-11-19 08:55] LABS: BUN Creatinine Ratio 13.8 (10-20); Est GFR (African American) 121.7 ml/min; Phosphorus 3.5 mg/dl (2.5-4.9)
--- NOTE | 2023-11-19 10:17 | Nephrology Progress Note ---
Date of Service November 19, 2023 Assessment & Plan Admission and Anticipated Discharge Date Admission Date: November 17, 2023 Subjective Assessment & Plan (1) Acute hyponatremia: Sec to combination of Daily heavy beer intake coupled with use of Chlorthalidone. his previous sodium was 137 in December 2021 which was before he was put on hydrochlorothiazide or chlorthalidone. yesterday's a.m. blood work is the 1st time he has had a BMP done since being on thiazide. so it is hard to tell the exact etiology but regardless we can not use thiazide ever again. na rising nicely and is now 130 from 126 from 120. good rate of correction. Continue current mX --hold Chlorthalidone and never use thiazide diuretics as an outpatient also. if he needs any diuretics he can be on loop diuretics No need of Aggressive fluid limit. Current fluid intake seems reasonable. S--Na rising. No new issues. Physical Exam Physical Exam: General: Morbid obesity. No acute distress. Bruise on left forehead Eyes: PERRL, conjunctivae normal, not pale, anicteric sclerae, EOM intact bilaterally ENMT: External ear and nose normal, oropharynx normal Neck: Normal visual inspection, Thick neck Respiratory: Normal respiratory effort, no respiratory distress, distant breath sounds likely due to body habitus. On room air Cardiovascular: RRR S1 S2 Chest (Breasts): Normal inspection of chest. No bruises noted Gastrointestinal (Abdomen): Abdomen is not distended, soft, non-tender to palpation, no guarding, no palpable hepatosplenomegaly, normal bowel sounds Musculoskeletal: No pedal edema, Some tenderness over left shoulder. Normal power Neurologic: Alert and oriented x 3, No focal weakness, sensation grossly intact Psychiatric: Euthymic affect Results & Data Vital Signs (Past 12 Hours) Vital Signs Temp Pulse Pulse Resp BP Pulse Ox O2 Del Method 11/19/23 07:20 36.6 C 86 18 119/61 96 Room Air 11/19/23 02:48 36.7 C 73 20 136/93 94 BiPAP 11/19/23 01:20 77 20 77 L 11/18/23 23:00 90 11/18/23 22:56 80 22 95 11/18/23 22:49 36.5 C 85 18 132/86 95 Room Air FiO2 11/19/23 07:20 11/19/23 02:48 11/19/23 01:20 21 11/18/23 23:00 11/18/23 22:56 21 11/18/23 22:49
[2023-11-19] MEDS ORDERED: CETIRIZINE HCL 10 MG TABLET PO ONE (11:15)
[2023-11-19] MEDS: DOXYCYCLINE HYCLATE 100 MG in DEXTROSE 5% MINI-B 100 ML IV SCH (11:23)
[2023-11-19] MEDS: metroNIDAZOLE 500 MG/100 ML BAG IV SCH ×2 (11:23→18:10)
[2023-11-19] MEDS: ADVANCED PROBIOTIC 1250 MG CAPSULE PO SCH (11:24)
[2023-11-19] MEDS: FLUTICASONE PROPIONATE NA SPR 16 GM BTL SCH ×2 (11:25→20:00)
--- NOTE | 2023-11-19 12:32 | Hospitalist Progress Note ---
Date of Service November 19, 2023 Assessment & Plan (1) Acute hyponatremia: Plan: Per previous hospitalist notes with addendum: This is a 43 y/o male with metabolic syndrome X, HTN, cataplexy, morbid obesity, EtOH abuse, depression, anxiety, chronic LE lymphedema, and newly diagnosed SHIMON who presents to the ED today with increasing frequency of "episodes" of cataplexy over the last few days. Pt was seen by neurology several years ago when he was diagnosed with cataplexy but has not followed with them recently. These episodes have previously been triggered by laughing or coughing, current symptoms seem to be triggered by coughing. Work-up in the ED also reviewed new hyponatremia. Review of outpatient labs shows last sodium in 2021 was 137. - - Hold diuretic in view of hyponatremia - Serial BMP Q6 hrs - Check serum osmolality, urine osmolality, urine sodium - Consult nephrology for recommendations - do not take any thiazide diuretic (hctz or chlorthalidone) 11/19 Sodium stable at 130 Appreciate nephrology recommendations Stop diuretics (2) Cough: Plan: Unclear etiology. Pt is on lisinopril but has been on this for a long time with most recent dose adjustment apparently about nine months ago - respiratory panel - negative - CXR negative - Hold lisinopril for now although low suspicion of this as a the cause - Guaifenesin and loratadine scheduled, prn anti-tussives - continues to have a cough - added guaifensin w/ codein instead of regular guaifenesin - s/p 2 courses of antibiotics. also reports L sided rib pain from fall, will obtain CT chest to evaluate 07/20 CT chest: No infiltrates, effusion Cough likely secondary to postnasal drip syndrome, chronic sinusitis/rhinitis Start doxycycline plus Flagyl Flonase Ipratropium nasal spray Change loratadine to cetirizine Sputum culture Continue Tessalon Perles, Hycodan as needed for cough Lisinopril also discontinued (3) Hypomagnesemia: Plan: Magnesium 1.8 (4) Left shoulder pain: Plan: s/p fall - check left shoulder x-ray - negative for any fx (5) Cataplexy: Plan: Increasing frequency of episodes of LOC - Check EEG to r/o seizure, especially in view of new urinary incontinence not associated with prior episodes EEG - negative for eplipt. activity - Echo -LV wall motion is normal. LVEF 65 to 70%. Valvular structures were not well-seen however there is no significant stenosis or regurg on Doppler interrogation. Carotid duplex - 1. There is no sonographic evidence of hemodynamically significant stenosis in the right or left carotid arterial system. 2. Antegrade flow is shown in the vertebral arteries. Neurology consulted - 1. MRI brain and c spine w/wo 2. MRA head 3. TTE 4. Seizure precuations 5. Zio patch on discharge 6. Symptomatic management of cough 7. Outpatient Sleep Medicine referral 8. No driving 11/19 Cervical MRI: Positive epidural hematoma Orthopedic spine consulted Echocardiogram: Left ventricular wall motion is normal, EF 65 to 70%, valvular structures not well-seen but no significant stenosis or regurgitation (6) Lymphedema of both lower extremities: Plan: Chronic, stable (7) Essential hypertension: Plan: Avoid use of ACEI with ongoing cough, although may not be related. When evaluated in the ED, BP was borderline 90s/60s BP 134/87 (8) Syndrome X, metabolic: Plan: Pt is to be on Ozempic as outpatient but not currently taking. Encouraged f/u with PCP to discuss this further. - current A1c 6.0% - lipid panel in the AM - LDL 51 (9) Alcohol use: Plan: Drinks six pack of beer daily - At-risk CIWA prn Ativan protocol No F symptoms of alcohol withdrawal Plan Code Status: Full code DVT Prophylaxis: Lovenox NOTE: Needs appointment with sleep medicine at discharge to f/u on CPAP. Admission and Anticipated Discharge Date Admission Date: November 17, 2023 Subjective ff up for cough, etc seen resting in bed, comfortable states he was still having coughing speels last night, Hycodan not helping bringing up yellow, brown phlegm has postnasal drip, with sinus congestion no fever/chills, shortness of breath No recurrence of loss of consciousness Denies neck pain Neurologic symptoms, focal weakness or numbness No other new symptoms Review of Systems Review of Systems: all noted and negative except for above Physical Exam Physical Exam: General- oriented x 3, not in distress, speaks in sentences with no effort or accessory muscle use Positive abrasion left forehead Eyes- anicteric No sinus tenderness Neck- no JVD Full range of motion, no tenderness Lungs- clear breath sounds bilaterally, no rales/wheezes Heart- normal rate, regular rhythm; no murmurs Abdomen- normal bowel sounds, nondistended, soft, nontender Extremities- no pretibial edema, no calf tenderness Neuro- alert, oriented x 3; no gross focal neurologic deficits Skin- warm & dry Results & Data Results & Data Vital Signs (Past 12 Hours) Vital Signs Temp Pulse Pulse Resp BP Pulse Ox O2 Del Method 11/19/23 11:20 36.7 C 71 18 134/87 95 Room Air 11/19/23 07:20 36.6 C 86 18 119/61 96 Room Air 11/19/23 02:48 36.7 C 73 20 136/93 94 BiPAP 11/19/23 01:20 77 20 77 L FiO2 11/19/23 11:20 11/19/23 07:20 11/19/23 02:48 11/19/23 01:20 21 all noted and reviewed including below (2) Cough Cough type: unspecified Qualified Code(s): R05.9 - Cough, unspecified (4) Left shoulder pain Chronicity: acute Qualified Code(s): M25.512 - Pain in left shoulder
--- NOTE | 2023-11-19 14:36 | Orthopedic Consultation ---
Date of Consultation November 19, 2023 Assessment & Plan (1) Cervical stenosis of spinal canal: Assessment cervical spinal stenosis. Plan at this time explained to patient that he does have multilevel cervical spinal stenosis but no evidence of any clinical manifestations. This point I will have him discontinue with observation regarding his neck. He would benefit from a weight loss program. History of Present Illness Reason for Consultation: Cervical spinal stenosis Attending Physician: Yony Ocampo MD History of Present Illness This is a very pleasant 43-year-old male that is in the hospital for multiple medical issues and during his workup had obtained an MRI of the cervical spine. It does demonstrate evidence of significant severe multilevel spondylosis. Patient states that he does not have any neck pain or radicular complaints. He gets occasional numbness in his hands but is intermittent in nature. Is a full- time electrician yard at [employer] and does not note any fine motor skills or deficits performing his job. Allergies Allergy/AdvReac Type Severity Reaction Status Date / Time No Known Allergies Allergy Unverified 07/21/19 22:56 Home Medications Medication Instructions Recorded Confirmed Type lisinopril 40 mg tablet 40 mg PO DAILY 07/21/19 11/17/23 History chlorthalidone 25 mg tablet 25 mg PO DAILY 11/17/23 11/17/23 History semaglutide 0.25 mg or 0.5 mg (2 0.5 mg subcut WK 11/17/23 11/17/23 History mg/3 mL) subcutaneous pen injector (Ozempic) Patient History Medical History Anxiety Hepatic steatosis Essential hypertension Cataplexy Lymphedema of both lower extremities Syndrome X, metabolic Major depression Morbid obesity Surgical History Hx of vasectomy Family History Grandmother Myocardial infarction Other Stroke Social History Smoking Status: Former smoker Tobacco Type: Smokeless Tobacco (Dip or Chew) Second Hand Exposure: Yes; Do You Dip or Chew Tobacco: Yes; Hx Alcohol Use: Yes Alcohol type: beer Alcohol type Comment: 6 pack/day Hx Substance Use: No Preferred Language: Frisian Communication Ability: Effective Propagation Manager Required: No Beliefs That Will Affect Care: None Current Living Situation: Alone Other Information That Helps Us Care for You: No Feels Safe at Home: Yes Safety Concerns: Feels Safe At This Time Assistive Devices: None Physical Exam Physical Exam: On exam he exhibits no Lhermitte's phenomenon. 6 strength testing upper extremities. Sensory symmetric and intact. Results & Data Vital Signs (Past 12 Hours) Vital Signs Temp Pulse Resp BP Pulse Ox O2 Del Method 11/19/23 11:20 36.7 C 71 18 134/87 95 Room Air 11/19/23 07:20 36.6 C 86 18 119/61 96 Room Air 11/19/23 02:48 36.7 C 73 20 136/93 94 BiPAP
[2023-11-19] MEDS: IPRATROPIUM BROMIDE NASAL SPRAY 0.06% 15ML NAE SCH (20:01)
[2023-11-20] MEDS: DOXYCYCLINE HYCLATE 100 MG in DEXTROSE 5% MINI-B 100 ML IV SCH ×3 (00:31→23:47)
[2023-11-20] MEDS: metroNIDAZOLE 500 MG/100 ML BAG IV SCH ×3 (03:00→18:29)
[2023-11-20] MEDS: ACETAMINOPHEN 325 MG TAB PO PRN ×2 (05:49→20:12)
[2023-11-20] MEDS: FLUTICASONE PROPIONATE NA SPR 16 GM BTL SCH ×2 (08:18→20:11)
[2023-11-20] MEDS: IPRATROPIUM BROMIDE NASAL SPRAY 0.06% 15ML NAE SCH ×2 (08:18→20:11)
[2023-11-20] MEDS: THIAMINE HCL 100 MG TAB PO SCH (08:19)
[2023-11-20] MEDS: FOLIC ACID 1 MG TAB PO SCH (08:19)
[2023-11-20] MEDS: ADVANCED PROBIOTIC 1250 MG CAPSULE PO SCH (08:20)
[2023-11-20 08:26] LABS: BUN Creatinine Ratio 13.6 (10-20); Calcium 9.2 mg/dl (8.6-10.3); Creatinine Clr Calc Pharmacy 161.1 ml/min; Est GFR (African American) 121.1 ml/min; Est GFR (Non-African American) 104.5 ml/min
--- NOTE | 2023-11-20 10:12 | Hospitalist Progress Note ---
Date of Service November 20, 2023 Assessment & Plan (1) Acute hyponatremia: Plan: Per previous hospitalist notes with addendum: This is a 43 y/o male with metabolic syndrome X, HTN, cataplexy, morbid obesity, EtOH abuse, depression, anxiety, chronic LE lymphedema, and newly diagnosed SHIMON who presents to the ED today with increasing frequency of "episodes" of cataplexy over the last few days. Pt was seen by neurology several years ago when he was diagnosed with cataplexy but has not followed with them recently. These episodes have previously been triggered by laughing or coughing, current symptoms seem to be triggered by coughing. Work-up in the ED also reviewed new hyponatremia. Review of outpatient labs shows last sodium in 2021 was 137. - - Hold diuretic in view of hyponatremia - Serial BMP Q6 hrs - Check serum osmolality, urine osmolality, urine sodium - Consult nephrology for recommendations - do not take any thiazide diuretic (hctz or chlorthalidone) 11/20 Sodium stable at 131 Appreciate nephrology recommendations Stop diuretics (2) Cough: Plan: Unclear etiology. Pt is on lisinopril but has been on this for a long time with most recent dose adjustment apparently about nine months ago - respiratory panel - negative - CXR negative - Hold lisinopril for now although low suspicion of this as a the cause - Guaifenesin and loratadine scheduled, prn anti-tussives - continues to have a cough - added guaifensin w/ codein instead of regular guaifenesin - s/p 2 courses of antibiotics. also reports L sided rib pain from fall, will obtain CT chest to evaluate 11/19 CT chest: No infiltrates, effusion Cough likely secondary to postnasal drip syndrome, chronic sinusitis/rhinitis Start doxycycline plus Flagyl Flonase Ipratropium nasal spray Change loratadine to cetirizine Sputum culture Continue Tessalon Perles, Hycodan as needed for cough Lisinopril also discontinued 11/20 Clinically improving Continue doxycycline plus Flagyl IV, transition to p.o. tomorrow Continue Flonase, ipratropium nasal spray Continue cetirizine Sputum culture moderate normal lex (3) Hypomagnesemia: Plan: Magnesium 1.8 (4) Left shoulder pain: Plan: s/p fall - check left shoulder x-ray - negative for any fx (5) Cataplexy: Plan: Increasing frequency of episodes of LOC - Check EEG to r/o seizure, especially in view of new urinary incontinence not associated with prior episodes EEG - negative for eplipt. activity - Echo -LV wall motion is normal. LVEF 65 to 70%. Valvular structures were not well-seen however there is no significant stenosis or regurg on Doppler interrogation. Carotid duplex - 1. There is no sonographic evidence of hemodynamically significant stenosis in the right or left carotid arterial system. 2. Antegrade flow is shown in the vertebral arteries. Neurology consulted - 1. MRI brain and c spine w/wo 2. MRA head 3. TTE 4. Seizure precuations 5. Zio patch on discharge 6. Symptomatic management of cough 7. Outpatient Sleep Medicine referral 8. No driving 11/19 Cervical MRI: Positive epidural hematoma Orthopedic spine consulted Echocardiogram: Left ventricular wall motion is normal, EF 65 to 70%, valvular structures not well-seen but no significant stenosis or regurgitation 11/[address] Duggan Finding of epidural hematoma very subtle, patient asymptomatic, no further intervention at this point according to him No neck pain, or any other neurologic findings at this (6) Lymphedema of both lower extremities: Plan: Chronic, stable (7) Essential hypertension: Plan: Avoid use of ACEI with ongoing cough, although may not be related. When evaluated in the ED, BP was borderline 90s/60s BP 138/90 (8) Syndrome X, metabolic: Plan: Pt is to be on Ozempic as outpatient but not currently taking. Encouraged f/u with PCP to discuss this further. - current A1c 6.0% - lipid panel in the AM - LDL 51 (9) Alcohol use: Plan: Drinks six pack of beer daily - At-risk CIWA prn Ativan protocol No F symptoms of alcohol withdrawal Plan Code Status: Full code DVT Prophylaxis: Lovenox NOTE: Needs appointment with sleep medicine at discharge to f/u on CPAP. Anticipate discharge home tomorrow Admission and Anticipated Discharge Date Admission Date: November 17, 2023 Subjective Follow-up for recurrent syncope, in the setting of coughing spells, etc. Seen resting in bed, comfortable, sitting up Good spirits States he is starting to feel better today Less cough, no recurrence of syncope Less nasal drainage No fevers or chills, sputum production is less No other new symptoms Review of Systems Review of Systems: all noted and negative except for above Physical Exam Physical Exam: all noted and negative except for above Results & Data Results & Data Vital Signs (Past 12 Hours) Vital Signs Temp Pulse Pulse Resp BP Pulse Ox O2 Del Method 11/20/23 07:41 Room Air 11/20/23 07:22 36.3 C L 65 16 154/79 H 97 Room Air 11/20/23 03:08 36.7 C 67 18 142/94 H 96 BiPAP 11/20/23 02:33 70 16 96 11/19/23 23:27 83 19 97 11/19/23 23:21 36.7 C 77 18 144/82 H 95 Room Air 11/19/23 23:00 84 FiO2 11/20/23 07:41 11/20/23 07:22 11/20/23 03:08 11/20/23 02:33 21 11/19/23 23:27 21 11/19/23 23:21 11/19/23 23:00 all noted and reviewed including below (2) Cough Cough type: unspecified Qualified Code(s): R05.9 - Cough, unspecified (4) Left shoulder pain Chronicity: acute Qualified Code(s): M25.512 - Pain in left shoulder
--- NOTE | 2023-11-20 10:13 | Hospitalist Progress Note ---
Date of Service November 20, 2023 Assessment & Plan (1) Acute hyponatremia: Plan: Per previous hospitalist notes with addendum: This is a 43 y/o male with metabolic syndrome X, HTN, cataplexy, morbid obesity, EtOH abuse, depression, anxiety, chronic LE lymphedema, and newly diagnosed SHIMON who presents to the ED today with increasing frequency of "episodes" of cataplexy over the last few days. Pt was seen by neurology several years ago when he was diagnosed with cataplexy but has not followed with them recently. These episodes have previously been triggered by laughing or coughing, current symptoms seem to be triggered by coughing. Work-up in the ED also reviewed new hyponatremia. Review of outpatient labs shows last sodium in 2021 was 137. - - Hold diuretic in view of hyponatremia - Serial BMP Q6 hrs - Check serum osmolality, urine osmolality, urine sodium - Consult nephrology for recommendations - do not take any thiazide diuretic (hctz or chlorthalidone) 11/19 Sodium stable at 130 Appreciate nephrology recommendations Stop diuretics (2) Cough: Plan: Unclear etiology. Pt is on lisinopril but has been on this for a long time with most recent dose adjustment apparently about nine months ago - respiratory panel - negative - CXR negative - Hold lisinopril for now although low suspicion of this as a the cause - Guaifenesin and loratadine scheduled, prn anti-tussives - continues to have a cough - added guaifensin w/ codein instead of regular guaifenesin - s/p 2 courses of antibiotics. also reports L sided rib pain from fall, will obtain CT chest to evaluate 07/20 CT chest: No infiltrates, effusion Cough likely secondary to postnasal drip syndrome, chronic sinusitis/rhinitis Start doxycycline plus Flagyl Flonase Ipratropium nasal spray Change loratadine to cetirizine Sputum culture Continue Tessalon Perles, Hycodan as needed for cough Lisinopril also discontinued (3) Hypomagnesemia: Plan: Magnesium 1.8 (4) Left shoulder pain: Plan: s/p fall - check left shoulder x-ray - negative for any fx (5) Cataplexy: Plan: Increasing frequency of episodes of LOC - Check EEG to r/o seizure, especially in view of new urinary incontinence not associated with prior episodes EEG - negative for eplipt. activity - Echo -LV wall motion is normal. LVEF 65 to 70%. Valvular structures were not well-seen however there is no significant stenosis or regurg on Doppler interrogation. Carotid duplex - 1. There is no sonographic evidence of hemodynamically significant stenosis in the right or left carotid arterial system. 2. Antegrade flow is shown in the vertebral arteries. Neurology consulted - 1. MRI brain and c spine w/wo 2. MRA head 3. TTE 4. Seizure precuations 5. Zio patch on discharge 6. Symptomatic management of cough 7. Outpatient Sleep Medicine referral 8. No driving 11/19 Cervical MRI: Positive epidural hematoma Orthopedic spine consulted Echocardiogram: Left ventricular wall motion is normal, EF 65 to 70%, valvular structures not well-seen but no significant stenosis or regurgitation (6) Lymphedema of both lower extremities: Plan: Chronic, stable (7) Essential hypertension: Plan: Avoid use of ACEI with ongoing cough, although may not be related. When evaluated in the ED, BP was borderline 90s/60s BP 134/87 (8) Syndrome X, metabolic: Plan: Pt is to be on Ozempic as outpatient but not currently taking. Encouraged f/u with PCP to discuss this further. - current A1c 6.0% - lipid panel in the AM - LDL 51 (9) Alcohol use: Plan: Drinks six pack of beer daily - At-risk CIWA prn Ativan protocol No F symptoms of alcohol withdrawal Plan Code Status: Full code DVT Prophylaxis: Lovenox NOTE: Needs appointment with sleep medicine at discharge to f/u on CPAP. Admission and Anticipated Discharge Date Admission Date: November 17, 2023 Results & Data Results & Data Vital Signs (Past 12 Hours) Vital Signs Temp Pulse Pulse Resp BP Pulse Ox O2 Del Method 11/20/23 07:41 Room Air 11/20/23 07:22 36.3 C L 65 16 154/79 H 97 Room Air 11/20/23 03:08 36.7 C 67 18 142/94 H 96 BiPAP 11/20/23 02:33 70 16 96 11/19/23 23:27 83 19 97 11/19/23 23:21 36.7 C 77 18 144/82 H 95 Room Air 11/19/23 23:00 84 FiO2 11/20/23 07:41 11/20/23 07:22 11/20/23 03:08 11/20/23 02:33 21 11/19/23 23:27 21 11/19/23 23:21 11/19/23 23:00 (2) Cough Cough type: unspecified Qualified Code(s): R05.9 - Cough, unspecified (4) Left shoulder pain Chronicity: acute Qualified Code(s): M25.512 - Pain in left shoulder
[2023-11-20] MEDS: BENZONATATE 100 MG CAPSULE PO PRN (20:12)
[2023-11-21] MEDS: metroNIDAZOLE 500 MG/100 ML BAG IV SCH (01:59)
[2023-11-21] MEDS: ACETAMINOPHEN 325 MG TAB PO PRN (03:25)
[2023-11-21] MEDS: ADVANCED PROBIOTIC 1250 MG CAPSULE PO SCH (08:11)
[2023-11-21] MEDS: THIAMINE HCL 100 MG TAB PO SCH (08:11)
[2023-11-21] MEDS: FOLIC ACID 1 MG TAB PO SCH (08:11)
[2023-11-21] MEDS: FLUTICASONE PROPIONATE NA SPR 16 GM BTL SCH (08:12)
[2023-11-21] MEDS: IPRATROPIUM BROMIDE NASAL SPRAY 0.06% 15ML NAE SCH (08:12)
[2023-11-21] MEDS ORDERED: amLODIPine BESYLATE 5 MG TAB PO SCH (09:00)
--- NOTE | 2023-11-21 14:13 | Communication Note ---
Date of Service: November 21, 2023 Neurology Update : MRI brain with no acute intracranial findings. MRI c spine with suspected tiny dorsal epidural hematoma extending from C2-C3 and multilevel denegerative changes with severe spinal stenosis at C4-C5 and moderate stenosis at C5-C6. MRA with two right supraclinoid aneurysms. TTE with EF 65-70-%, normal sized left atrium, no ASD but unable to assess for PFO. Pt evaluated by orthospine as epidural hematoma subtle and asymptomatic, no treatment was felt warranted. And give clinical exam, not felt to be a surgical candidate with respect to cervical stenosis. Recommend outpatient zio patch, sleep medicine referral, and outpatient neurology follow-up, and neurosurgery referral.
--- NOTE | 2023-11-21 14:14 | Hospitalist Progress Note ---
Date of Service November 21, 2023 delayed entry date of service noted above Assessment & Plan (1) Acute hyponatremia: Plan: Per previous hospitalist notes with addendum: This is a 43 y/o male with metabolic syndrome X, HTN, cataplexy, morbid obesity, EtOH abuse, depression, anxiety, chronic LE lymphedema, and newly diagnosed SHIMON who presents to the ED today with increasing frequency of "episodes" of cataplexy over the last few days. Pt was seen by neurology several years ago when he was diagnosed with cataplexy but has not followed with them recently. These episodes have previously been triggered by laughing or coughing, current symptoms seem to be triggered by coughing. Work-up in the ED also reviewed new hyponatremia. Review of outpatient labs shows last sodium in 2021 was 137. Nephrology consulted Chlorthalidone discontinued Na improved to 120 - 131 no diuretics as per Nephro (2) Cough: Plan: Unclear etiology. Pt is on lisinopril but has been on this for a long time with most recent dose adjustment apparently about nine months ago - respiratory panel - negative - CXR negative - Hold lisinopril for now although low suspicion of this as a the cause 11/19 CT chest: No infiltrates, effusion Sputum culture moderate normal lex Cough likely secondary to postnasal drip syndrome, chronic sinusitis/rhinitis given doxycycline plus Flagyl Flonase Ipratropium nasal spray Change loratadine to cetirizine Lisinopril also discontinued 11/21 Clinically much better Continue doxycycline plus Flagyl po x 5 more days to complete 7 day course Continue Flonase, ipratropium nasal spray Continue cetirizine (3) Hypomagnesemia: Plan: Magnesium 1.8 (4) Left shoulder pain: Plan: s/p fall - check left shoulder x-ray - negative for any fx (5) Cataplexy: Plan: Increasing frequency of episodes of LOC - Check EEG to r/o seizure, especially in view of new urinary incontinence not associated with prior episodes EEG - negative for eplipt. activity - Echo -LV wall motion is normal. LVEF 65 to 70%. Valvular structures were not well-seen however there is no significant stenosis or regurg on Doppler interrogation. Carotid duplex - 1. There is no sonographic evidence of hemodynamically significant stenosis in the right or left carotid arterial system. 2. Antegrade flow is shown in the vertebral arteries. Neurology consulted - 1. MRI brain and c spine w/wo 2. MRA head 3. TTE 4. Seizure precautions 5. Zio patch on discharge 6. Symptomatic management of cough 7. Outpatient Sleep Medicine referral 8. No driving Cervical MRI: Positive epidural hematoma Echocardiogram: Left ventricular wall motion is normal, EF 65 to 70%, valvular structures not well-seen but no significant stenosis or regurgitation Discussed with Ortho Dr. Duggan Finding of epidural hematoma very subtle, patient asymptomatic, no further intervention at this point according to him No neck pain, or any other neurologic findings at this Brain MRI, MRA: There are 2 small aneurysms extending cephalad from the right supraclinoid ICA. Otherwise, negative MRI of the brain. syncopal episodes likely related to vasovagal response from coughing ff up with Neurologist as outpatient notified [employer] re: temporay suspension of [employer] driver's license CEREBRAL ANEURYSM Will need referral to neurosurgery for further evaluation (6) Lymphedema of both lower extremities: Plan: Chronic, stable (7) Essential hypertension: Plan: Lisinopril and Chlorthalidone stopped Amlodipine 5mg po daily started monitor closely (8) Syndrome X, metabolic: Plan: Pt is to be on Ozempic as outpatient but not currently taking. Encouraged f/u with PCP to discuss this further. - current A1c 6.0% - lipid panel in the AM - LDL 51 (9) Alcohol use: Plan: Drinks six pack of beer daily - At-risk CIWA prn Ativan protocol No F symptoms of alcohol withdrawal Plan d/c home PCP in 1 week Neurosurgery referral please for evaluation of cerebral aneurysm Admission and Anticipated Discharge Date Admission Date: November 17, 2023 Subjective ff up for cough, etc seen resting in bed, comfortable states he feels fine overall cough is much less no shortness of breath no syncope no other new symptoms states he feels much better overall Review of Systems Review of Systems: all noted and negative except for above Physical Exam Physical Exam: General- oriented x 3, not in distress, speaks in sentences with no effort or accessory muscle use Eyes- anicteric Neck- no JVD Lungs- clear breath sounds bilaterally,no crackles/wheezing Heart- normal rate, regular rhythm; no murmurs Abdomen- normal bowel sounds, nondistended, soft, no tenderness Extremities- no pretibial edema, no calf tenderness Neuro- alert, oriented x 3; no gross focal neurologic deficits Skin- warm & dry Results & Data Results & Data Vital Signs (Past 12 Hours) Vital Signs Temp Pulse Pulse Resp BP Pulse Ox O2 Del Method 11/21/23 11:15 36.4 C L 71 16 147/93 H 96 11/21/23 08:15 61 11/21/23 08:15 Room Air 11/21/23 07:32 36.4 C L 71 16 147/93 H 96 Room Air 11/21/23 03:33 37.1 C 75 18 145/71 H 97 Room Air all noted and reviewed including below (2) Cough Cough type: unspecified Qualified Code(s): R05.9 - Cough, unspecified (4) Left shoulder pain Chronicity: acute Qualified Code(s): M25.512 - Pain in left shoulder
--- NOTE | 2023-11-23 17:19 | Hospitalist Progress Note ---
Date of Service November 23, 2023 delayed entry date of service noted above Assessment & Plan Admission and Anticipated Discharge Date Admission Date: November 17, 2023
--- NOTE | 2023-11-24 17:17 | Discharge Summary ---
Discharge Summary Date of Service November 24, 2023 delayed entry date of service 11/21 Notes For Next Care Provider Medication Changes From Visit per assessment and plan below Admission HPI Per Admitting Provider This is a 43 y/o male with metabolic syndrome X, HTN, cataplexy, morbid obesity, EtOH abuse, depression, anxiety, chronic LE lymphedema, and newly diagnosed SHIMON who presents to the ED today with increasing frequency of "episodes" of cataplexy over the last few days. Pt reports that around he developed URI symptoms and was seen at urgent care and given a course of antibiotics. Symptoms persisted so he went back to urgent care and was given a second course of antibiotics. He reports persistent cough despite antibiotics, but specifically that this has worsened over the last four days. Cough may be episodic, is intermittently productive of clear to brown mucus. These episodes of coughing seem to trigger the episodes of passing out. With the episode this morning, he fell and hit his head with a resultant abrasion. He also notes new urinary incontinence that started overnight and may be associated with the episodes of LOC. He notes some mild sinus congestion, but denies rhinorrhea, fevers, chills. He is on Lisinopril, which was last increased about nine months ago. He notes being diagnosed with SHIMON but never followed up for CPAP. He is also supposed to be on Ozempic but stopped taking this although he is unclear as to why. Admission Exam Per Admitting Provider General: Morbid obesity. No acute distress. Bruise on left forehead Eyes: PERRL, conjunctivae normal, not pale, anicteric sclerae, EOM intact bilaterally ENMT: External ear and nose normal, oropharynx normal Neck: Normal visual inspection, Thick neck Respiratory: Normal respiratory effort, no respiratory distress, distant breath sounds likely due to body habitus. On room air Cardiovascular: RRR S1 S2 Chest (Breasts): Normal inspection of chest. No bruises noted Gastrointestinal (Abdomen): Abdomen is not distended, soft, non-tender to palpation, no guarding, no palpable hepatosplenomegaly, normal bowel sounds Musculoskeletal: No pedal edema, Some tenderness over left shoulder. Normal power Neurologic: Alert and oriented x 3, No focal weakness, sensation grossly intact Psychiatric: Euthymic affect Principal Dx & Hospital Course #1 = Principal Diagnosis (1) Acute hyponatremia: Per previous hospitalist notes with addendum: This is a 43 y/o male with metabolic syndrome X, HTN, cataplexy, morbid obesity, EtOH abuse, depression, anxiety, chronic LE lymphedema, and newly diagnosed SHIMON who presents to the ED today with increasing frequency of "episodes" of cataplexy over the last few days. Pt was seen by neurology several years ago when he was diagnosed with cataplexy but has not followed with them recently. These episodes have previously been triggered by laughing or coughing, current symptoms seem to be triggered by coughing. Work-up in the ED also reviewed new hyponatremia. Review of outpatient labs shows last sodium in 2021 was 137. Nephrology consulted Chlorthalidone discontinued Na improved to 120 - 131 no diuretics as per Nephro (2) Cough: Unclear etiology. Pt is on lisinopril but has been on this for a long time with most recent dose adjustment apparently about nine months ago - respiratory panel - negative - CXR negative - Hold lisinopril for now although low suspicion of this as a the cause 11/19 CT chest: No infiltrates, effusion Sputum culture moderate normal lex Cough likely secondary to postnasal drip syndrome, chronic sinusitis/rhinitis given doxycycline plus Flagyl Flonase Ipratropium nasal spray Change loratadine to cetirizine Lisinopril also discontinued 11/21 Clinically much better Continue doxycycline plus Flagyl po x 5 more days to complete 7 day course Continue Flonase, ipratropium nasal spray Continue cetirizine (3) Hypomagnesemia: Magnesium 1.8 (4) Left shoulder pain: s/p fall - check left shoulder x-ray - negative for any fx (5) Cataplexy: Increasing frequency of episodes of LOC - Check EEG to r/o seizure, especially in view of new urinary incontinence not associated with prior episodes EEG - negative for eplipt. activity - Echo -LV wall motion is normal. LVEF 65 to 70%. Valvular structures were not well-seen however there is no significant stenosis or regurg on Doppler interrogation. Carotid duplex - 1. There is no sonographic evidence of hemodynamically significant stenosis in the right or left carotid arterial system. 2. Antegrade flow is shown in the vertebral arteries. Neurology consulted - 1. MRI brain and c spine w/wo 2. MRA head 3. TTE 4. Seizure precautions 5. Zio patch on discharge 6. Symptomatic management of cough 7. Outpatient Sleep Medicine referral 8. No driving Cervical MRI: Positive epidural hematoma Echocardiogram: Left ventricular wall motion is normal, EF 65 to 70%, valvular structures not well-seen but no significant stenosis or regurgitation Discussed with Ortho Dr. Duggan Finding of epidural hematoma very subtle, patient asymptomatic, no further intervention at this point according to him No neck pain, or any other neurologic findings at this Brain MRI, MRA: There are 2 small aneurysms extending cephalad from the right supraclinoid ICA. Otherwise, negative MRI of the brain. 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 Encouraged f/u with PCP to discuss this further. - current A1c 6.0% - lipid panel in the AM - LDL 51 (9) Alcohol use: Drinks six pack of beer daily - At-risk CIWA prn Ativan protocol No F symptoms of alcohol withdrawal Plan d/c home PCP in 1 week Neurosurgery referral please for evaluation of cerebral aneurysm Discharge Exam General- oriented x 3, not in distress, speaks in sentences with no effort or accessory muscle use Eyes- anicteric Neck- no JVD Lungs- clear breath sounds bilaterally,no crackles/wheezing Heart- normal rate, regular rhythm; no murmurs Abdomen- normal bowel sounds, nondistended, soft, no tenderness Extremities- no pretibial edema, no calf tenderness Neuro- alert, oriented x 3; no gross focal neurologic deficits Skin- warm & dry Updated Medication List Medication Instructions Recorded Confirmed Type semaglutide 0.25 mg or 0.5 mg (2 0.5 mg subcut WK 11/17/23 11/17/23 History mg/3 mL) subcutaneous pen injector (Ozempic) amlodipine 5 mg tablet (Norvasc) 5 mg PO QAM 30 days #30 tabs 11/21/23 Rx benzonatate 100 mg capsule 100 mg PO TID PRN cough #14 caps 11/21/23 Rx cetirizine 10 mg tablet 10 mg PO DAILY #14 tabs 11/21/23 Rx fluticasone propionate 50 1 spray NA BID 7 days #16 grams 11/21/23 Rx mcg/actuation nasal spray,suspension folic acid 1 mg tablet 1 mg PO QAM 7 days #7 tabs 11/21/23 Rx ipratropium bromide 42 mcg (0.06 2 spray FAIZA Q12 5 days #15 mL 11/21/23 Rx %) nasal spray thiamine HCl (vitamin B1) 100 mg 100 mg PO QAM 7 days #7 tabs 11/21/23 Rx tablet doxycycline hyclate 100 mg capsule 100 mg PO BID 5 days #10 caps 11/24/23 Rx metronidazole 500 mg tablet 500 mg PO TID 5 days #15 tabs 11/24/23 Rx Hospital Stay Data Consultations 11/17/23 09:04 ED Decision to Admit Stat 11/17/23 11:32 Consult Nephrology Routine Consult Neurology Routine 11/19/23 08:00 Consult Orthopedic Spine Surgery Routine Diagnostic Imagining Performed Laboratory Results WBC 7.76 K/ul (4.8-10.8) 11/19/23 07:33 RBC 4.12 M/uL (4.70-6.10) L 11/19/23 07:33 Hgb 13.4 g/dl (14.0-18.0) L 11/19/23 07:33 Hct 39.2 % (42.0-52.0) L 11/19/23 07:33 MCV 95.1 fL (80.0-100.0) 11/19/23 07:33 MCH 32.5 pg (25.0-34.0) 11/19/23 07:33 MCHC 34.2 g/dL (32.0-36.0) 11/19/23 07:33 RDW Std Deviation 42.3 fL (36.4-46.3) 11/19/23 07:33 RDW Coeff of Nirmal 12.1 % (11.5-14.5) 11/19/23 07:33 Plt Count 196 K/uL (130-400) 11/19/23 07:33 MPV 9.5 fL (9.4-12.4) 11/19/23 07:33 Immature Gran % (Auto) 0.8 % 11/18/23 05:20 Neut % (Auto) 69.6 % 11/18/23 05:20 Lymph % (Auto) 19.8 % 11/18/23 05:20 Tate % (Auto) 8.2 % 11/18/23 05:20 Eos % (Auto) 1.3 % 11/18/23 05:20 Baso % (Auto) 0.3 % 11/18/23 05:20 Neut # (Auto) 5.33 K/uL (1.40-6.50) 11/18/23 05:20 Lymph # (Auto) 1.52 K/uL (1.20-3.40) 11/18/23 05:20 Tate # (Auto) 0.63 K/uL (0.11-0.59) H 11/18/23 05:20 Eos # (Auto) 0.10 K/uL (0.00-0.50) 11/18/23 05:20 Baso # (Auto) 0.02 K/uL (0.00-0.20) 11/18/23 05:20 Immature Gran # (Auto) 0.06 K/uL (0.01-0.20) 11/18/23 05:20 Sodium 131 mmol/L (136-145) L 11/20/23 07:23 Potassium 4.0 mmol/L (3.5-5.1) 11/20/23 07:23 Chloride 94 mmol/L (98-107) L 11/20/23 07:23 Carbon Dioxide 28 mmol/L (21-32) 11/20/23 07:23 Anion Gap 9 (3-11) 11/20/23 07:23 BUN 12 mg/dl (6-23) 11/20/23 07:23 Creatinine 0.88 mg/dl (0.6-1.4) 11/20/23 07:23 Est Cr Clr Drug Dosing 161.1 ml/min 11/20/23 07:23 Est GFR ( Amer) 121.1 ml/min 11/20/23 07:23 Est GFR (Non-Af Amer) 104.5 ml/min 11/20/23 07:23 BUN/Creatinine Ratio 13.6 (10-20) 11/20/23 07:23 Glucose 136 mg/dl (70-99(Fasting)) H 11/20/23 07:23 Estimat Average Glucose 126 mg/dl 11/18/23 05:20 Hemoglobin A1c 6.0 % (4.5-5.6) H 11/18/23 05:20 Osmolality 259 mOsm/kg (280-300) L 11/17/23 07:51 Lactate 1.6 mmol/L (0.4-2.0) 11/17/23 07:57 Calcium 9.2 mg/dl (8.6-10.3) 11/20/23 07:23 Phosphorus 3.5 mg/dl (2.5-4.9) 11/19/23 07:33 Magnesium 1.8 mg/dl (1.7-2.4) 11/19/23 07:33 Total Bilirubin 0.5 mg/dl (0.2-1.0) 11/17/23 07:51 AST 42 U/L (13-39) H 11/17/23 07:51 ALT 30 U/L (7-52) 11/17/23 07:51 Alkaline Phosphatase 60 U/L (34-104) 11/17/23 07:51 Troponin I High Sens 11.6 pg/ml (0-20) 11/17/23 07:51 Total Protein 7.6 gm/dl (6.0-8.3) 11/17/23 07:51 Albumin 4.0 gm/dl (3.4-5.0) 11/17/23 07:51 Globulin 3.6 gm/dl (2.5-4.0) 11/17/23 07:51 Albumin/Globulin Ratio 1.1 (0.9-2) 11/17/23 07:51 Triglycerides 60 mg/dl (0-150) 11/18/23 05:20 Cholesterol 137 mg/dl (0-200) 11/18/23 05:20 LDL Cholesterol, Calc 51 mg/dl 11/18/23 05:20 VLDL Cholesterol, Calc 12 mg/dl (0-30) 11/18/23 05:20 HDL Cholesterol 74 mg/dl 11/18/23 05:20 Cholesterol/HDL Ratio 1.9 (0-5) 11/18/23 05:20 Urine Color Yellow 11/17/23 09:16 Urine Appearance Clear (Clear) 11/17/23 09:16 Urine pH 5.5 (4.5-7.5) 11/17/23 09:16 Ur Specific [place] 1.010 (1.000-1.030) 11/17/23 09:16 Urine Protein Negative (Negative) 11/17/23 09:16 Urine Glucose (UA) Trace (Negative) H 11/17/23 09:16 Urine Ketones Negative (Negative) 11/17/23 09:16 Urine Blood Negative (Negative) 11/17/23 09:16 Urine Nitrite Negative (Negative) 11/17/23 09:16 Urine Bilirubin Negative (Negative) 11/17/23 09:16 Urine Urobilinogen Negative (Negative) 11/17/23 09:16 Ur Leukocyte Esterase Negative (Negative) 11/17/23 09:16 Urine Osmolality 283 mOsm/kg (500-800) L 11/17/23 09:16 Ur Random Sodium 33 mmol/L 11/17/23 09:16 Nasal Screen MRSA (PCR) Negative (Negative) 11/19/23 12:33 Ethyl Alcohol mg/dL < 10.0 mg/dl (<10.0) 11/17/23 09:06 Adenovirus (PCR) Not Detected (NotDetected) 11/17/23 10:00 B. pertussis DNA (PCR) Not Detected (NotDetected) 11/17/23 10:00 B.parapertussis DNA PCR Not Detected (NotDetected) 11/17/23 10:00 C. pneumoniae DNA (PCR) Not Detected (NotDetected) 11/17/23 10:00 Coronavirus OC43 (PCR) Not Detected (NotDetected) 11/17/23 10:00 Coronavirus HKU1 (PCR) Not Detected (NotDetected) 11/17/23 10:00 Coronavirus 229E (PCR) Not Detected (NotDetected) 11/17/23 10:00 SARS-CoV-2 (PCR) Not Detected (NotDetected) 11/17/23 10:00 Coronavirus NL63 (PCR) Not Detected (NotDetected) 11/17/23 10:00 Human Metapneumovir PCR Not Detected (NotDetected) 11/17/23 10:00 Influenza Type A (PCR) Not Detected (NotDetected) 11/17/23 10:00 Influenza Type B (PCR) Not Detected (NotDetected) 11/17/23 10:00 M. pneumoniae (PCR) Not Detected (NotDetected) 11/17/23 10:00 Parainfluenza 1 (PCR) Not Detected (NotDetected) 11/17/23 10:00 Parainfluenza 2 (PCR) Not Detected (NotDetected) 11/17/23 10:00 Parainfluenza 3 (PCR) Not Detected (NotDetected) 11/17/23 10:00 Parainfluenza 4 (PCR) Not Detected (NotDetected) 11/17/23 10:00 RSV (PCR) Not Detected (NotDetected) 11/17/23 10:00 Entero/Rhino (PCR) Not Detected (NotDetected) 11/17/23 10:[address] 11/17/23 07:39 CT head/brain wo con CLINICAL HISTORY: 43 years-old Male with syncope and collapse, forehead injury. TECHNIQUE: Multiple axial CT images of the head were obtained without contrast. A dose lowering technique was utilized adhering to the principles of ALARA. CT DOSE: 625.8 mGy.cm COMPARISON: None. FINDINGS: No acute intracranial hemorrhage, midline shift, intracranial mass, hydrocephalus, territorial ischemia or abnormal extra-axial collection. The calvarium is intact. Large right mastoid effusion. The left mastoid air cells are clear. There is mild mucosal thickening of the ethmoid air cells and right maxillary sinus. IMPRESSION: 1. No acute intracranial abnormality or calvarial fracture. 2. Large right mastoid effusion. ACT 112: Negative or not required by law. The above report was generated using voice recognition software. It may contain grammatical, syntax or spelling errors. Electronically signed by: Gurpreet Monroe M.D. 11/17/2023 8:13 AM Chest X-Ray 11/17/23 08:52 XR chest 1V portable HISTORY: 43 years-old Male L sided rib pain s/p fall . Left sided rib pain status post fall COMPARISON: Rib radiographs 01/01/2023 TECHNIQUE: AP view of the chest FINDINGS: Cardiomediastinal and hilar silhouettes are within normal limits. No pneumothorax, pleural effusion or airspace consolidation. The bones appear grossly intact. IMPRESSION: No acute process. ACT 112: Negative or not required by law. The above report was generated using voice recognition software. It may contain grammatical, syntax or spelling errors. Electronically signed by: Gurpreet Monroe M.D. 11/17/2023 9:28 AM Shoulder X-Ray 11/17/23 09:34 XR shoulder LT min 2V routine HISTORY: 43 years-old Male pain s/p fall . Left shoulder pain status post fall COMPARISON: Chest radiograph of same day TECHNIQUE: 3 views of the left shoulder FINDINGS: Minimal degeneration of the AC joint. There is no acute fracture, dislocation or opaque foreign body. The imaged lung coyne appear clear. IMPRESSION: No acute fracture or dislocation. ACT 112: Negative or not required by law. The above report was generated using voice recognition software. It may contain grammatical, syntax or spelling errors. Electronically signed by: Gurpreet Monroe M.D. 11/17/2023 10:04 AM Carotid Doppler Study 11/17/23 12:54 ULTRASOUND OF THE CAROTID ARTERIES CLINICAL HISTORY: episodic LOC TECHNIQUE: Real-time, grayscale, and color Doppler sonography of the carotid arteries is performed. Images are reviewed in the transverse and longitudinal planes. COMPARISON: None available at the time of this dictation. FINDINGS: Exam is limited by patient body habitus. The carotid arteries are patent bilaterally and demonstrate antegrade flow. There is no atherosclerotic plaque on the right and no atherosclerotic plaque on the left. Normal doppler arterial waveforms are seen throughout. Velocity measurements are listed below. Common carotid peak systolic velocity (cm/sec): RIGHT: 169 LEFT: 120 ICA peak systolic velocity (cm/sec): RIGHT: 59 LEFT: 68 ICA/CC peak systolic ratio: RIGHT: 0.35 LEFT: 0.57 Antegrade flow was shown in the vertebral arteries. The external carotid arteries are patent. IMPRESSION: 1. There is no sonographic evidence of hemodynamically significant stenosis in the right or left carotid arterial system. 2. Antegrade flow is shown in the vertebral arteries. Society of Radiologists in Ultrasound consensus guidelines: Normal: ICA PSV is <125 cm/sec and no plaque or intimal thickening is visible sonographically additional criteria include ICA/CCA PSV ratio <2.0 and ICA EDV <40 cm/sec <50% ICA stenosis: ICA PSV is <125 cm/sec and plaque or intimal thickening is visible sonographically additional criteria include ICA/CCA PSV ratio <2.0 and ICA EDV <40 cm/sec 50-69% ICA stenosis: ICA PSV is 125-230 cm/sec and plaque is visible sonographically additional criteria include ICA/CCA PSV ratio of 2.0-4.0 and ICA EDV of 40-100 cm/sec ?70% ICA stenosis but less than near occlusion: ICA PSV is >230 cm/sec and visible plaque and luminal narrowing are seen at beltran-scale and color Doppler ultrasound (the higher the Doppler parameters lie above the threshold of 230 cm/sec, the greater the likelihood of severe disease) additional criteria include ICA/CCA PSV ratio >4 and ICA EDV >100 cm/sec ACT 112: Negative or not required by law. Electronically signed by: Leland Talamantes M.D. 11/17/2023 3:33 PM Brain MRI 11/18/23 14:34 Exam(s): MRI HEAD W/WO Contrast IV Amt: 14cc gadavist EXAM: MR Head Without and With Intravenous Contrast CLINICAL HISTORY: Reason for exam: ? new seizure, syncope. TECHNIQUE: Magnetic resonance images of the head/brain without and with intravenous contrast in multiple planes. CONTRAST: Patient received 14cc gadavist of IV contrast COMPARISON: Comparison made to prior head CT from November 17, 2023. FINDINGS: Brain: Unremarkable. No mass. No hemorrhage. No acute infarct. The flow voids of the base of the brain are intact. No evidence of abnormal enhancement. The dural venous sinuses are patent. Ventricles: Unremarkable. No ventriculomegaly. Bones/joints: Unremarkable. No acute fracture. Sinuses: Chronic maxillary and ethmoid sinusitis. No acute sinusitis. Mastoid air cells: Right mastoid and middle ear effusion. Orbits: Unremarkable as visualized. IMPRESSION: No evidence of acute intracranial pathology. Electronically signed by: Shirlene Headley MD 11/19/23 01:53 AM Cervical Spine MRI 11/18/23 14:34 CR Exam(s): MRI C SPINE EXAM: MR Cervical Spine Without Intravenous Contrast CLINICAL HISTORY: Reason for exam: ? new seizure. TECHNIQUE: Magnetic resonance images of the cervical spine without intravenous contrast in multiple planes. COMPARISON: No relevant prior studies available. FINDINGS: Vertebrae: There are 7 cervical type vertebral bodies with a modular curved to left and mild cervical kyphosis. There is normal vertebral body height and alignment. The bone marrow signal is heterogeneous with reactive endplate changes. There is a tiny dorsal epidural hematoma extending from C2-3 through C4-5. No acute fracture. Spinal cord: The cord is normal size, shape and signal characteristics. Normal enhancement. Soft tissues: The cervical flow voids are intact. DISCS/SPINAL CANAL/NEURAL FORAMINA: C2-C3: The intervertebral disc is normal. There is minimal facet arthropathy with mild synovitis. C3-C4: There is mild disc degeneration with annular disc bulge flattening the ventral thecal sac. There is minimal facet arthropathy with mild synovitis. C4-C5: Moderate disc degeneration with annular disc bulging asymmetric to the right flattening the ventral thecal sac causing a severe spinal canal stenosis with AP diameter measuring 7.7 mm in diameter. There is uncovertebral joint arthropathy with disc extending to the neural foramina causing mild bilateral stenosis without evidence of nerve impingement. There is minimal to mild facet arthropathy with mild synovitis C5-C6: Moderate disc degeneration with annular disc bulge flatten the ventral thecal sac and causing a moderate spinal canal stenosis with AP diameter measuring 8 mm with uncovertebral joint arthropathy with this extending to the left neuroforamen causing a moderately severe left stenosis with impingement on the left C6 nerve root. There is mild facet arthropathy with mild synovitis. C6-C7: Moderate spinal canal stenosis with annular disc bulges imaged to the right flank. Sac. There is uncovertebral arthropathies in place extending to the right neural foramen causing moderate stenosis with mild impingement on the right C7 nerve root. There is mild facet arthropathy with mild synovitis. C7-T1: There is mild disc degeneration with annular disc bulge flattening the ventral sac. There is mild facet arthropathy with mild synovitis. IMPRESSION: 1. There is a tiny dorsal epidural hematoma extending from C2-3 through C4-5. 2. Moderate disc degeneration at C4-5, C5-6 and C6-7 with mild disc degeneration at C3-4 and C7-T1 with annular disc bulging flatten the ventral thecal sac. 3. There is a severe spinal canal stenosis at C4-5 and moderate stenosis at C5-6. 4. There is mild bilateral C4-5, moderately severe left C5-6, and moderate right C6-7 neural foraminal stenosis with impingement of the left C6 and right C7 nerve roots. 5. There is minimal to mild facet arthropathy with mild synovitis. 6. No evidence of fracture, infection, tumor or myelopathy. Communications: Verify Receipt Electronically signed by: Shirlene Headley MD 11/19/23 02:16 AM Head MRA 11/18/23 14:35 Exam(s): MRA HEAD Without Contrast EXAM: MR Angiography Head Without Intravenous Contrast CLINICAL HISTORY: Reason for exam: ? new seizure, syncope. TECHNIQUE: Magnetic resonance angiography images of the head without intravenous contrast. COMPARISON: No relevant prior studies available. FINDINGS: Right internal carotid artery: No acute findings. Intracranial segment is patent with no significant stenosis. 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 Right anterior cerebral artery: Unremarkable. No occlusion or significant stenosis. No aneurysm. Right middle cerebral artery: Unremarkable. No occlusion or significant stenosis. No aneurysm. Right posterior cerebral artery: Unremarkable. No occlusion or significant stenosis. No aneurysm. Right vertebral artery: Unremarkable as visualized. Left internal carotid artery: No acute findings. Intracranial segment is patent with no significant stenosis. No aneurysm. Left anterior cerebral artery: Unremarkable. No occlusion or significant stenosis. No aneurysm. Left middle cerebral artery: Unremarkable. No occlusion or significant stenosis. No aneurysm. Left posterior cerebral artery: Unremarkable. No occlusion or significant stenosis. No aneurysm. Left vertebral artery: Unremarkable as visualized. Basilar artery: Unremarkable. No occlusion or significant stenosis. No aneurysm. 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 Otherwise, negative MRI of the brain. Electronically signed by: Shirlene Headley MD 11/19/23 00:[address] 11/18/23 15:45 CT chest diagnostic wo con CLINICAL HISTORY: persistent cough, syncope TECHNIQUE: Multidetector row helical CT of the chest was performed. Coronal and sagittal reformations were obtained. Automated dose lowering techniques and/or adjustment according to patient size were utilized for this exam. CT DOSE: 955.93 mGy.cm Comparison: Comparison is made to CT chest 07/21/2019 FINDINGS: Lungs and pleura: There is atelectasis of the left lower lobe with trace pleural effusion. No erma consolidation is seen. There is interval stability of multiple pulmonary nodules including a 3 mm nodule in the left lower lobe (series 4 image 225) and multiple pleural-based nodules (images 136 140). A parenchymal lymph node in the right middle lobe is unchanged (image 169). Heart and pericardium: Heart size is normal. No pericardial effusion. Vessels: Unremarkable. Mediastinum and julio c: Unremarkable. Chest wall and lower neck: Unremarkable. Abdomen: Hepatic steatosis is noted. A splenule is incidentally seen. Bones: Degenerative changes in the thoracic spine. Wedge deformity of T8 is unchanged. IMPRESSION: 1. No evidence of consolidation. There is atelectasis in the left lower lobe with trace pleural effusion. 2. Hepatic steatosis. 3. Small pulmonary nodules as above. ACT 112: Negative or not required by law. Electronically signed by: Leland Talamantes M.D. 11/18/2023 4:43 PM Pending Results Patient Have Any Pending Studies at Discharge: No Discharge Instructions Given to Patient (Per Discharging Provider) PLEASE REFER TO YOUR NEW MEDICATION LIST AND FOLLOW INSTRUCTIONS CAREFULLY. YOUR NEW MEDICATIONS INCLUDE: Doxycycline, metronidazole-antibiotic for sinusitis Flonase, ipratropium-nasal spray for sinusitis and postnasal drip Cetirizine- for allergic component of sinusitis Amlodipine-medication for blood pressure control Please take a probiotic daily for at least 1 month. [employer] recommended. Stop lisinopril, chlorthalidone. PLEASE CALL YOUR PRIMARY CARE PHYSICIAN OR RETURN TO THE ER IF WITH WORSENING OF SYMPTOMS, INCLUDING Loss of consciousness, fever/chills, cough, sputum production, shortness of breath, etc. FOLLOW UP WITH PRIMARY CARE PHYSICIAN OUTLINED ABOVE. FOLLOW-UP WITH [facility] GAS LOAD DISPATCHER IN 1 TO 2 WEEKS. FOLLOW-UP WITH [facility] NEUROLOGIST IN 2 WEEKS. THE CLINIC WILL BE CALLING YOU SOON FOR THE APPOINTMENT SCHEDULE. No driving until cleared by the neurologist. Total Time Total Time Spent Total Time Spent (In Minutes): >30 minutes
== END 2023-11-21 11:39 | disposition home or self-care (01) | DRG 641 ==
LOC: ED 07:26 → SUATTDRO 09:19 → EDINP 09:19 → 2S 15:25
DX: Z68.42 Body mass index [BMI] 45.0-49.9, adult; R55 Syncope and collapse; J32.9 Chronic sinusitis, unspecified; I67.1 Cerebral aneurysm, nonruptured; T46.4X5A Adverse effect of angiotensin-converting-enzyme inhibitors, initial encounter; Z79.899 Other long term (current) drug therapy; F10.90 Alcohol use, unspecified, uncomplicated; E88.810 Metabolic syndrome; Z91.128 Patient's intentional underdosing of medication regimen for other reason; T50.2X5A Adverse effect of carbonic-anhydrase inhibitors, benzothiadiazides and other diuretics, initial encounter; E87.8 Other disorders of electrolyte and fluid balance, not elsewhere classified; M48.02 Spinal stenosis, cervical region; G47.411 Narcolepsy with cataplexy; M25.512 Pain in left shoulder; F17.220 Nicotine dependence, chewing tobacco, uncomplicated; J31.0 Chronic rhinitis; Z79.85 Long-term (current) use of injectable non-insulin antidiabetic drugs; R05.4 Cough syncope; R05.8 Other specified cough; G47.33 Obstructive sleep apnea (adult) (pediatric); R09.82 Postnasal drip; E87.1 Hypo-osmolality and hyponatremia; E83.42 Hypomagnesemia; I10 Essential (primary) hypertension; I89.0 Lymphedema, not elsewhere classified; E66.01 Morbid (severe) obesity due to excess calories